=== PATIENT | female | born 1955 | race African-American/Black ===

== ENCOUNTER 2017-08-03 21:23 | Inpatient (IN) | payer SELFPAY ==
[2017-08-03 22:02] LABS: #Basophils 0.1 thou/uL (0.0-0.2); #Eosinphils 0.2 thou/uL (0.0-0.7); #Lymphocytes 2.5 thou/uL (1.20-3.40); #Monocytes 0.5 thou/uL (0.11-0.59); #Neutrophils 6.3 thou/uL (1.40-6.50); %Basophils 0.5 % (0.0-1.0); %Eosinophils 1.7 % (0.0-10.0); %Lymphocytes 26.1 % (21.0-51.0); %Monocytes 5.6 % (0.0-10.0); Hematocrit 36.9 % (36.0-47.0); Mean Platelet Volume 8.1 fL (7.4-10.4); White Blood Cell (WBC) Count 9.6 thou/uL (4.8-10.8)
[2017-08-03 22:14] LABS: ALT (SGPT) Less than 7 U/L (8-55); AST (SGOT) 11 U/L (5-34); Alkaline Phosphatase 79 U/L (40-150); Anion Gap 14 mmol/L (10-20); BUN (Urea Nitrogen) 8 mg/dL (9.8-20.1); Bilirubin, Total 0.3 mg/dL (0.2-1.2); Calc. Creatinine Clearance 0 mL/min (70-130); Calcium 8.9 mg/dL (7.8-10.44); Carbon Dioxide 27 mmol/L (23-31); Chloride 101 mmol/L (98-107); Estimated GFR-MDRD Greater than 90; Globulin 4.4 g/dL (2.4-3.5)
[2017-08-03] MEDS ORDERED: cloNIDine 0.1 MG TAB ONE (22:51)
--- NOTE | 2017-08-03 23:13 | RAD ---
PORTABLE CHEST: 08/03/17 HISTORY: Hypoxemia. COMPARISON: 04/26/17. Cardiomegaly. There is vascular congestion. Interstitial prominence suggests mild interstitial edema. No confluent alveolar edema or infiltrate. No significant effusion. IMPRESSION: Cardiomegaly and mild vascular congestion. POS: [facility]
[2017-08-03] MEDS ORDERED: Lorazepam 2 MG/ML VIAL ONE (23:21)
--- NOTE | 2017-08-03 23:28 | CT ---
CT HEAD WITHOUT CONTRAST: 08/03/17 Multiple axial tomograms obtained through the head without IV enhancement. HISTORY: Seizure. Comparison made to prior MRI of 01/21/[address] of 11/15/16 The previous MRI has demonstrated an enhancing extra-axial mass in the anterior right middle cranial fossa, partially calcified consistent with meningioma. This is producing vasogenic edema in the righ t temporal lobe. This is again seen on today's CT scan without evidence of significant change. There is encephalomalacia in the left cerebral hemisphere consistent with old left MCA territory infa rct which has been previously described. There is vasogenic edema in the right middle cranial fossa does produce some mass effect and slight m idline shift; however, the degree of midline shift at the septum pellucidum does not appear significa ntly changed from the prior exam and continues to measure in the 3 mm range. No acute hemorrhage or s ignificant interval change noted. IMPRESSION: 1. Partially calcified meningioma in the anterior right middle cranial fossa has been previously described on MRI. This produces vasogenic edema in the right temporal lobe which does not appear sig nificantly changed from the MRI of 12/22/16. There is slight mass effect and midline shift associated with this edema. 2. Encephalomalacia in the left cerebral hemisphere appears stable. POS: [facility]
[2017-08-03] MEDS ORDERED: Furosemide 40 MG/4 ML VIAL ONE (23:35)
[2017-08-04] MEDS ORDERED: Propofol 1,000 MG/100 ML VIAL IV ONE (00:08)
[2017-08-04] MEDS ORDERED: niCARdipine 20MG In NaCl 20 MG/200 ML BAG ONE ×2 (00:12→03:13)
[2017-08-04 00:35] LABS: Mechanical Tidal Volume 500 ml; Mode CMV; Modified Allen's Test POSITIVE; Sodium 137 mmol/L (135-148); Vent YES
[2017-08-04 00:58] LABS: Bilirubin Negative (Negative); Blood, Urine Small (Negative); Glucose, Urine (Dipstick) Negative (Negative); Ketone, Urine Negative (Negative); Nitrite Negative (Negative); Protein, Urine (Dipstick) Negative (Neg-Trace); Urobilinogen 0.2 mg/dL (0.2-1.0)
[2017-08-04 01:01] LABS: Bacteria/HPF None Seen HPF (None Seen); Hyaline Casts/LPF 0-3 HYALINE CAST LPF (0-3 Hyaline); Squamous Epithelial 0-3 HPF (0-3); WBC/HPF 0-3 HPF (0-3)
[2017-08-04] MEDS ORDERED: Lorazepam 2 MG/ML VIAL ONE (01:27)
[2017-08-04 01:37] LABS: Troponin I 0.018 ng/mL (< 0.028)
[2017-08-04 01:40] LABS: Troponin I 0.018 ng/mL (< 0.028)
[2017-08-04] MEDS ORDERED: Vecuronium 10 MG VIAL ONE (01:43)
[2017-08-04] MEDS ORDERED: Sterile Water 10 ML ONE (01:44)
[2017-08-04] MEDS ORDERED: CCU Electrolyte Replacement 1 EACH FS SCH (02:10)
[2017-08-04] MEDS ORDERED: Lorazepam 2 MG/ML VIAL SLOW IVP PRN ×2 (02:10→02:27)
[2017-08-04] MEDS ORDERED: Ondansetron HCl/PF 4 MG/2 ML Vial IVP PRN (02:10)
[2017-08-04] MEDS ORDERED: Acetaminophen 650 MG Suppository PR PRN (02:10)
[2017-08-04] MEDS ORDERED: Sedation Protocol FS SCH (02:10)
[2017-08-04] MEDS ORDERED: Fentanyl 20 MCG/ML 250 ML IVPB SCH (02:27)
[2017-08-04] MEDS ORDERED: DISCONTINUE PREVIOUS NARCOTIC PAIN MEDICATIONS AND BENZODIAZEPINES FS SCH (02:27)
[2017-08-04] MEDS ORDERED: Propofol 1,000 MG/100 ML VIAL IV PRN (02:27)
[2017-08-04] MEDS ORDERED: Morphine 4 MG/ML VIAL SLOW IVP PRN (02:29)
[2017-08-04] MEDS ORDERED: Furosemide 40 MG/4 ML VIAL SLOW IVP SCH (02:30)
[2017-08-04] MEDS ORDERED: Potassium Chloride 20 MEQ TAB PO PRN (02:34)
[2017-08-04] MEDS ORDERED: Potassium Chloride 40 MEQ in Sodium Chloride 0.9% 250 ML 250 ML IVPB PRN (02:34)
[2017-08-04] MEDS ORDERED: Potassium Phosphate 12 MMOL in Sodium Chloride 0.9% 250 ML 250 ML IV PRN (02:34)
[2017-08-04] MEDS ORDERED: CCU ELECTROLYTE REPLACEMENT PROTOCOL FS PRN (02:34)
[2017-08-04] MEDS ORDERED: Magnesium 2 GM/NS 0.9% 100 ML 2 GM in Premix Bag 1 BAG IVPB PRN (02:34)
[2017-08-04] MEDS ORDERED: Potassium Phosphate 15 MMOL in Sodium Chloride 0.9% 250 ML 250 ML IV PRN (02:34)
[2017-08-04] MEDS ORDERED: Magnesium Oxide 400 MG TAB PO PRN ×2 (02:34)
[2017-08-04] MEDS ORDERED: Potassium Phosphate 9 MMOL in Sodium Chloride 0.9% 100 ML IVPB PRN (02:34)
[2017-08-04 02:35] LABS: Amphetamine Not Detected (NotDetected); Methadone Not Detected (NotDetected); Methamphetamine Not Detected (NotDetected)
[2017-08-04] MEDS ORDERED: Fentanyl 20 MCG/ML 250 ML ONE (02:44)
[2017-08-04] MEDS ORDERED: LEVETIRACETAM IVPB SCH (03:00)
[2017-08-04] MEDS ORDERED: ADMIXTURE FEE IVPB SCH (03:00)
[2017-08-04] MEDS ORDERED: NACL IVPB SCH (03:00)
--- NOTE | 2017-08-04 03:46 | HP ---
REASON FOR ADMISSION: Seizure x2, intubated for airway. HISTORY OF PRESENTING ILLNESS: Please note the majority of this history is obtained by my talking to patient's daughter and Dr. Cortez in the ER. Patient is currently intubated. She apparently wanted to eat a burger around 8:45 p.m. Daughter went to get it and by the time she came back, patient was seizing. She was staring with her face twitching. She soon called EMS and by the time EMS came, patient was slowly inching back to her normal state. She in fact walked to the stretcher. Here in the ER, patient had another episode of seizure , which is essentially described as staring with twitching of face. Per ER physician Dr. Cortez, she also was moving her right upper extremity. She got a dose of Ativan, which stopped the seizure. Patient started to froth and started coughing and had to be intubated. No complaints of fever, shortness of breath, chest pain, urinary symptoms per patient's daughter yesterday. She finished a 10-day course of antibiotics which was given to her for her COPD exacerbation on the . She also finished steroids along with that. PAST MEDICAL AND SURGICAL HISTORY: History of cerebrovascular accident with right-sided hemiparesis, seizure disorder, chronic meningioma, hypertension, dyslipidemia, COPD, appendectomy, bilateral tubal ligation, anxiety, depression. CURRENT MEDICATIONS: Aggrenox 1 capsule twice daily, Nexium 40 mg daily, Keppra 1000 mg twice daily, pravastatin 40 mg p.o. daily, lisinopril 40 mg daily. ALLERGIES: HALDOL. PERSONAL HISTORY: Patient continues to smoke half pack a day, does not abuse alcohol or drugs. She apparently is ambulating and does all her activities of daily living per patient's daughter. FAMILY HISTORY: Mom got shot in her 60s. Father is as well, but the daughter here at bedside does not know much about him. REVIEW OF SYSTEM: Cannot be obtained as patient is currently intubated and is sedated. PHYSICAL EXAMINATION: GENERAL: Patient is a 61-year-old female who is currently intubated and is on the ventilator. VITAL SIGNS: Blood pressure on arrival was 200/140, pulse 80 per minute, respiratory rate 20 per minute, temperature 100.4 degrees Fahrenheit, saturating 95% on ventilator, 100% FIO2. NECK: Supple, no elevated JVD. HEENT: Eyes: Pupils are 3 mm and sluggishly reacting to light. Oral cavity mucous membranes are moist. No exudates or congestion. CARDIOVASCULAR: S1, S2 heard. Regular rhythm. RESPIRATORY SYSTEM: Air entry 1+ bilateral. Scattered rhonchi plus bilateral. No wheezes. ABDOMEN: Soft, bowel sounds heard. No tenderness, rigidity, or guarding. EXTREMITIES: No peripheral edema or calf tenderness. VASCULAR SYSTEM: Peripheral pulses 1+ bilateral. No ischemic ulcerations or gangrene. CENTRAL NERVOUS SYSTEM: Patient does appear to have left hemiparesis with some wasting of muscles, but she is freely moving her right upper and lower extremities here in the ER. No other gross focal deficits seen. PSYCHIATRIC: Cannot be assessed as the patient is intubated and sedated. LABORATORY AND X-RAY FINDINGS: CT brain done showed no acute infarct or bleed. Patient has chronic encephalomalacia in the entire left cerebral hemisphere. She also has a partially calcified meningioma in the anterior right middle cranial fossa. Based on prior MRI done in 12/2016, there is not much change. UA shows no evidence of infection. TSH is 11, albumin is 3.6. Liver enzymes within normal limits. Two sets of troponin are negative. Potassium is 3.1, BUN 8, creatinine 0.7, serum bicarbonate 27, glucose is 111. Blood gas done shows a pH of 7.38, pCO2 50, pO2 of 349, bicarbonate is 29 on the blood gas. White count of 9, H&H 11 and 36, platelet count 358 with 66% neutrophils, MCV is 83. CLINICAL IMPRESSION AND PLAN: Patient will be admitted to ICU. She will be on Keppra 750 mg IV q.12 hourly. She will also be on Ativan p.r.n. for seizures. We will give one dose of Lasix. She was started on Cardene drip in ER, will dc with her systolic blood pressures at present around 110. This will be discontinued shortly. We will continue her propofol for sedation. Her potassium will be replaced. We will continue her Aggrenox, citalopram and Pravachol as before. She will be given a dose of Lasix one dose now. DuoNeb q.6 hourly and short course of steroids. We will consult Dr. Arora who is solar sales consultant for Pulmonology and Dr. Bailon for Neurology. CODE STATUS: FULL and I have discussed this with her daughter Ms. Cardona, she is also the power of attorney general for patient. Patient most likely will require a central line if her peripheral IVs go bad. I have discussed this with Dr. Coley who is in the ER. [facility]
[2017-08-04 04:21] LABS: Anion Gap 14 mmol/L (10-20); BUN (Urea Nitrogen) 8 mg/dL (9.8-20.1); Calc. Creatinine Clearance 0 mL/min (70-130); Calcium 8.8 mg/dL (7.8-10.44); Carbon Dioxide 26 mmol/L (23-31); Chloride 99 mmol/L (98-107); Estimated GFR-MDRD 88
[2017-08-04 04:29] LABS: Troponin I 0.028 ng/mL (< 0.028)
--- NOTE | 2017-08-04 04:52 | PDOC.EVN ---
Event Note - Event Note Event Note: repeat cxr done for confirmation of central line showed left lung haziness with likely aspiration. Will start on clindamycin, she is already on steroids.
[2017-08-04 05:14] LABS: Band 1 % (5-11); Hematocrit 38.5 % (36.0-47.0); Neutrophil 81 % (42-75); Reactive Lymphocytes 1 % (0-10); Red Blood Cell (RBC) Count 4.65 mill/uL (4.20-5.40); White Blood Cell (WBC) Count 11.6 thou/uL (4.8-10.8)
[2017-08-04] MEDS: Clindamycin/D5W 600 MG in Premix Bag 1 BAG IVPB SCH ×3 (06:06→21:51)
[2017-08-04] MEDS: Potassium Chloride 40 MEQ in Premix Bag 1 BAG IVPB PRN (06:07)
[2017-08-04] MEDS: Mometasone/Formoterol 120 PUFF INHALER INH SCH ×2 (06:34→18:15)
[2017-08-04] MEDS ORDERED: Sodium Chloride 0.9% 1,000 ML IV SCH (07:30)
[2017-08-04 07:31] LABS: Oxyhemoglobin 90.4 % (94.0-97.0); Sodium 138 mmol/L (135-148)
[2017-08-04 07:49] LABS: Mechanical Tidal Volume 500 ml; Mode SIMV/PSV; Modified Allen's Test NOT DONE; Pressure Support 10 cmH2O; Vent YES
--- NOTE | 2017-08-04 08:17 | RAD ---
PORTABLE AP CHEST: Date: 08/04/17 HISTORY: Post intubation. COMPARISON: 08/03/17. FINDINGS: There has been interval placement of an endotracheal tube with tip overlying the T3 vertebral body an d above the level of the vna. Nasogastric tube has also been placed in the interim, which courses into the left upper quadrant with tip overlying the expected location of the gastric fundus. Pleural and parenchymal changes are seen at the left lung base, which may be related to atelectasis and small left pleural effusion, although pneumonia at the left lung base is a possibility. The right lung is clear. Cardiac silhouette and pulmonary vasculature are within normal limits. Thoracic aorta is ectat ic and partially calcified. No other interval change. IMPRESSION: 1. Interval placement of endotracheal tube and nasogastric tube as described above. 2. Pleural and parenchymal changes left lung base. Findings may be related to pneumonia, left pleura l effusion, and/or atelectasis. POS: [facility]
[2017-08-04] MEDS ORDERED: Aggrenox 200-25mg CAP PO SCH (09:00)
[2017-08-04] MEDS: Citalopram 20 MG TAB PO SCH (09:25)
[2017-08-04] MEDS: Famotidine/PF 20 mg/2ml Vial SLOW IVP SCH ×2 (09:25→21:52)
[2017-08-04] MEDS: Enoxaparin Sodium 40 MG/0.4 ML SYRINGE SC SCH (09:26)
--- NOTE | 2017-08-04 09:26 | RAD ---
PORTABLE AP CHEST: Date: 08/04/17 HISTORY: Post central line placement. FINDINGS: Endotracheal tube and nasogastric tubes remain in place. There has been interval placement of a left subclavian central venous catheter with the tip overlying suspected location of the SVC. There has be en interval increase in pleural based density left hemithorax with the opacity occupying at least 1/2 to 2/3 of the volume of the left hemithorax. This could be related to interval increase in pleural f luid. The exact etiology is uncertain. No pneumothorax is visualized. There is only a small amount of aerated lung present on the left. The right lung is clear. IMPRESSION: Interval placement of a left subclavian central venous catheter, and there is now increased opacity i n the left hemithorax which was not seen on the study of 08/04/17 at 0016 hours, just 2 hours prior t o this exam. Findings are worrisome for moderately large left pleural fluid. No pneumothorax is seen. Above findings discussed with Dr. Olivera on 08/04/17 at 0824 hours. CODE CR. POS: [facility]
--- NOTE | 2017-08-04 11:24 | PRG ---
DATE OF SERVICE: 08/04/2017 REFERRING PHYSICIAN: Hospitalist Service. SUBJECTIVE: Ms. Mitchell was admitted after being witnessed having a generalized seizure. She has a k nown history of seizures, and has been on Keppra. She has a past history of left MCA infarct with re sidual deficits on the right. She reports that she has been compliant with her medication. She is i ntubated as a result of seizures, given some Ativan in the emergency room, and things were brought un jessi control. She is quite hypertensive on arrival with a blood pressure of 190/147. Her vital signs are stabilized and has blood pressure 117/79, she had a normal sinus rhythm. IMAGING: CAT scan showed stable findings compared to prior studies. She has not had any further sei zure activity. PLAN: I would continue her Keppra at 1000 mg twice a day. I am happy to follow up with her as an ou tpatient.
--- NOTE | 2017-08-04 11:40 | CON ---
DATE OF CONSULTATION: 08/04/2017 HISTORY OF PRESENT ILLNESS: Ms. Mitchell was admitted with a seizure and pulmonary distress, was intub ated in the emergency department and placed in the Intensive Care Unit. Dr. Arora has asked me to se e her in regard to her left lung findings on CT/chest x-ray. She is currently intubated and sedated. I have reviewed her CT and chest x-ray with Dr. Arora. The left lung lower lobe shows some consolidation in the periphery. There is no can fluid or loculated fluid present currently. Her chest x-ray certainly looks worse than her CT scan does from early thi s morning. She has had no fever since admission. Her white blood cell count is currently 11.6. PAST MEDICAL HISTORY: 1. History of previous cerebrovascular accident with right hemiparesis. 2. Seizure disorder. 3. Calcified meningioma. 4. Hypertension. 5. Dyslipidemia. 6. Chronic obstructive pulmonary disease. 7. Anxiety. 8. Depression. PAST SURGICAL HISTORY: 1. Appendectomy. 2. BTL. CURRENT MEDICATIONS: Noted. ALLERGIES: HALDOL. SOCIAL HISTORY: She smokes a half pack of cigarettes a day. REVIEW OF SYSTEMS: Not able to be performed due to the patient being intubated and sedated. PHYSICAL EXAMINATION: GENERAL: This is a well-developed, elderly appearing -[place] woman, resting comfortably on the ventilator. VITAL SIGNS: Temperature is 99.4, pulse is 85 and regular, blood pressure is 117/79. LUNGS: Clear bilaterally, some diminished breath sounds over the left side. HEART: Rhythm is regular. ABDOMEN: Soft. EXTREMITIES: There is minimal edema. LABORATORY DATA: Of note, white blood cell count is 11.6, hemoglobin is 11.7, platelet count 342,000 . Creatinine is 0.80. Potassium is 3.4. ASSESSMENT AND PLAN: Left lower lobe consolidation. I will continue to follow her with you. If she does begin to accumulate fluid surrounding this, we can certainly place chest tube or take her for t horacoscopy and decortication as needed.
--- NOTE | 2017-08-04 11:56 | PRG ---
DATE OF SERVICE: 08/04/2017 SUBJECTIVE: I just received a call from Radiology physician, who reported to me significant change o n the chest x-ray on Ms. Gia Mitchell, a patient from [facility]. Radiologist noticed significant change a nd worsening of the left lung opacification, which increased a lot from the previous x-ray, which was just done this morning. OBJECTIVE: GENERAL: Patient is intubated. She is not sedated at this point. Only, she is on fentanyl p.r.n. a s needed. VITAL SIGNS: Blood pressure is 107/79, pulse is 86, respiratory rate is 16 and O2 saturation is 99% on FiO2 of 50%. HEENT: Pupils are in midline, they respond to light properly. Sclerae is nonicteric. Conjunctivae pinkish. LUNGS: Breath sounds diminished at the left base with few crackles, no wheezing though. HEART: S1 and S2 normal. No S3, no S4, somewhat distant. ABDOMEN: Soft, nondistended and nontender. EXTREMITIES: No peripheral edema. NEUROLOGIC: She is able to respond to my questions. She is able to squeeze my fingers. She might h ave some deficits, which is very difficult at this time to notice, nothing obvious, but she follows m y commands and she responds that she is not in any pain. LABORATORY DATA: White count of 11.6, hemoglobin is 11.7, hematocrit is 38.5, platelet count is 342, 81% of neutrophils. Her ABGs showed pH of 7.46, pCO2 is 41.9, pO2 of 57.4 and base excess is 4.9. Sodium is 138, potassium 3.6, chloride 95 and ionized calcium is 1.1. Her morning chemistry showed s odium of 136, potassium 3.4, chloride 99, CO2 of 26, anion gap of 14, BUN 8 and creatinine 0.8. Trop onin 0.028. Urinalysis showed small amount of blood, 11-20 rbc's. The rest of the urinalysis within normal limits. Urine toxicology screen is negative. She had a chest x-ray, which was done at 7:00, which showed significant opacification of the left lung. IMPRESSION: 1. Recurrent seizures based on CT. She has a partially calcified meningioma in the anterior right m iddle cranial fossa with some evidence of vasogenic edema in the right temporal lobe. It is not danny r whether this mass is the source of seizures at this point, the patient was seen by neurologist, Dr. Bailon. We are awaiting for final report from him. He switched the patient from Aggrenox to aspir in and he is going to continue her Keppra. She was placed at the time of admission 1000 mg twice a d ay. 2. Respiratory changes, most likely it is aspiration pneumonia. The patient was placed on clindamyc in for that purpose. The case was discussed with Dr. Arora, wearing apparel assembler, who is rounding today. H e is recommending to get cardiothoracic surgeon, Dr. Barth involved to consider putting a chest tube. She will remain on the ventilator and we are going to make some adjustments in the settings to impr ove her hypoxemia. 3. Seizure disorder. 4. History of cerebrovascular accident with left-sided hemiparesis. 5. Hypertension. 6. Dyslipidemia. 7. Chronic obstructive pulmonary disease. 8. Hypertensive urgency with the systolic blood pressure more than 200 at the time of admission. e patient was placed on Cardene drip and by this time, her Cardene drip is being discontinued because her blood pressure is under much better control, so at this point we are going to see Dr. Barth. Re commend and will keep the patient on a ventilator. She will receive supportive care in the intensive care.
--- NOTE | 2017-08-04 13:39 | CT ---
PRELIMINARY REPORT/[facility]/EMERGENCY AFTER HOURS PROCEDURE: EXAM: CT Angiography Chest With Intravenous Contrast EXAM DATE/TIME: Exam ordered 08/04/2017 3:03 AM CLINICAL HISTORY: 61 years old, female; Signs and symptoms; Dyspnea; Patient HX: Pt lives with daughter who reports pat jeremy had a seizure one hour before arriving to ed. Daughter reports fixed gaze, expressive aphasia. B reath sounds diminished, to bilateral upper lobes, to bilateral lower lobes TECHNIQUE: Axial computed tomographic angiography images of the chest with intravenous contrast using pulmonary embolism protocol. COMPARISON: No relevant prior studies available. FINDINGS: Pulmonary arteries: There is no evidence of peripheral filling defects within the pulmonary arterial circulation to suggest pulmonary embolism. Aorta: No acute findings. No thoracic aortic aneurysm. Lungs: There is mild RIGHT and moderate LEFT atelectasis/lung consolidation. There are emphysematous changes in the lung apices. Pleural space: Normal. No significant effusion. No pneumothorax. Heart: Normal. No cardiomegaly. No significant pericardial effusion. No evidence of RV dysfunction. Bones/joints: No acute fracture. No dislocation. Soft tissues: Normal. Lymph nodes: Normal. No enlarged lymph nodes. Upper abdomen: The visualized intra-abdominal structures are normal. Tubes, lines and devices: An endotracheal tube is present, lying with its tip 2 cm above the van. A nasogastric tube lies with its tip in the stomach. There is a left subclavian central venous cathet er with tip in satisfactory position. IMPRESSION: 1. There is no CT evidence of acute pulmonary embolism. 2. There is mild RIGHT and moderate LEFT atelectasis/lung consolidation. Aspiration is a consideratio n. Thank you for allowing us to participate in the care of your patient. Dictated and Authenticated by: Devon Chandra MD 08/04/2017 3:36 AM Central Time ([place] & [place]) FINAL REPORT EMERGENCY AFTER HOURS CT ANGIOGRAM THORAX WITH IV CONTRAST AND 3D RECONSTRUCTIONS: Date: 08/04/17 HISTORY: Seizure 1 hour prior to arrival. Expressive aphasia. Diminished breath sounds to bilateral upper lobe s, as well as bilateral lower lobes. COMPARISON: 06/15/16. IMPRESSION: 1. No CT evidence of a pulmonary embolus. 2. Thoracic aorta is normal in caliber without evidence of an aortic dissection. Mild vascular calci fications are seen in the thoracic aorta, as well as involving the coronary arteries. 3. Mild cardiomegaly. 4. Consolidation present at each lung base, much greater on the left. Findings are most likely attri butable to atelectasis as there is generalized volume loss involving the left hemithorax. Emphysemato us changes are seen bilaterally. 5. Endotracheal tube noted in place, which is above the level of the van. Nasogastric tube is not ed in place with tip in the gastric fundus. 6. Low density structure in an epicardial location, also present on the prior study in 2016. Attenua tion coefficient is difficult to evaluate due to motion artifact in this region. However, on the prio r study, attenuation coefficient was more consistent with fluid, and this could represent a tiny jony cardial cyst as opposed to an enlarged lymph node. However, there is an additional smaller lymph node present in the epicardial location. Nevertheless, this is a stable finding. 7. There is a left subclavian central venous catheter noted in place with the tip in the region of t he distal SVC. Findings are in agreement with the preliminary report by [facility]. Again, there is consolidation involvin g large portion of left lung most likely attributable to volume loss given decrease in volume of the left hemithorax. Aspiration pneumonitis is a possibility as well. POS: [facility]
[2017-08-04] MEDS ORDERED: ISOVUE-370 76%-LOCM 1 ML ONE (16:44)
--- NOTE | 2017-08-04 17:23 | CON ---
DATE OF CONSULTATION: 08/04/2017 Ms. Mitchell is a 61-year-old female. She presented with reportedly a seizure. She is intubated with this and subsequently was admitted to the ICU. There is some history provided by the nurse that maybe she had shortness of breath leading up to this seizure. Her chest radiograph was abnormal. I was consulted because she still presented in the ICU mechanical ventilation. PAST MEDICAL HISTORY: Remarkable for, 1. Right hemiparesis after a CVA. 2. History of seizures. 3. History of meningioma. 4. History of hypertension. 5. History of COPD. 6. Anxiety and depression. 7. History of tubal ligation, appendectomy. 8. History of lipid disorder. MEDICATIONS: Prior to admission she was on Aggrenox, , Keppra, pravastatin , lisinopril. ALLERGIES: She reports intolerance to HALDOL. SOCIAL HISTORY: She is still smoking even though she is hemiplegic. She does not drink. FAMILY HISTORY: Mother apparently from gunshot wound in her 60s. Father has . Daughter provided most of the history on admission. She was not here when I performed my consult this morning. PHYSICAL EXAMINATION: VITAL SIGNS: She is afebrile, heart rate 70, respiratory rate is 15, oximetry is 100%, blood pressure 115/76. HEENT: Pupils react. Sclerae is anicteric. NECK: Supple. LUNGS: Remarkable for decreased breath sounds at her left base. HEART: Regular rhythm. ABDOMEN: Soft. EXTREMITIES: Without asymmetry. LABORATORY AND X-RAY FINDINGS: Chest radiograph suggests bilateral pleural fluid. Chest CT shows this is probably more consolidation than pleural effusion. I had CT surgery look at to see if he felt there was anything that would justify chest tube placement, but he does not. IMPRESSION: 1. Seizures. 2. ? pneumonia or chemical pneumonitis associated with her seizures. It is unclear how long she was seizing, but the history provided is that the daughter left to go get something to eat and came back and her mother was seizing. I do not think she should be extubated. We will continue mechanical ventilation, serial radiographs, ICU care as well as empiric antimicrobial therapy and intravenous medications for her seizure (Keppra.) Since we really do not know if this is acute event related to her seizure or she was developing a pneumonia , she probably needs more coverage than just [place] provides. Critical care time 30 min. MTDD
[2017-08-04] MEDS: Piperacillin/Tazobactam 3.375 GM in Sodium Chloride 0.9% 100 ML IVPB SCH (17:43)
[2017-08-04] MEDS: Atorvastatin Calcium 10 MG TAB PO SCH (21:51)
[2017-08-04] MEDS: levETIRAcetam 500 mg/5 ml Oral Solution PER TUBE SCH (21:52)
[2017-08-05] MEDS: Piperacillin/Tazobactam 3.375 GM in Sodium Chloride 0.9% 100 ML IVPB SCH ×5 (00:08→23:56)
[2017-08-05 04:22] LABS: #Lymphocytes 0.8 thou/uL (1.20-3.40); #Monocytes 0.4 thou/uL (0.11-0.59); #Neutrophils 9.8 thou/uL (1.40-6.50); %Eosinophils 0.1 % (0.0-10.0); %Lymphocytes 6.9 % (21.0-51.0); %Monocytes 3.9 % (0.0-10.0); Hematocrit 31.5 % (36.0-47.0); Red Blood Cell (RBC) Count 3.84 mill/uL (4.20-5.40)
[2017-08-05 04:41] LABS: Anion Gap 10 mmol/L (10-20); BUN (Urea Nitrogen) 20 mg/dL (9.8-20.1); Calc. Creatinine Clearance 74 mL/min (70-130); Calcium 9.1 mg/dL (7.8-10.44); Carbon Dioxide 29 mmol/L (23-31); Chloride 99 mmol/L (98-107); Estimated GFR-MDRD 55
[2017-08-05] MEDS: Clindamycin/D5W 600 MG in Premix Bag 1 BAG IVPB SCH ×3 (05:32→20:05)
[2017-08-05] MEDS: Potassium Chloride 40 MEQ in Premix Bag 1 BAG IVPB PRN (05:37)
[2017-08-05 07:54] LABS: Oxyhemoglobin 92.3 % (94.0-97.0); Sodium 138 mmol/L (135-148)
[2017-08-05 07:55] LABS: Mechanical Tidal Volume 500 ml; Mode SIMV/PSV; Modified Allen's Test NOT DONE; Pressure Support 10 cmH2O; Vent YES
[2017-08-05] MEDS ORDERED: Sodium Chloride 0.45% 500 ML IV SCH (08:15)
--- NOTE | 2017-08-05 08:31 | PRG ---
DATE OF SERVICE: 08/05/2017 SUBJECTIVE: The patient is seen and examined at the bedside. She is awake and responsive to me. Sh yariel is not sedated. She is on a ventilator. There were not any unexpected events overnight. OBJECTIVE: VITAL SIGNS: Blood pressure is 161/84, pulse is 79, pulse oximetry is 100%. She is on FiO2 50%, res piratory rate is 20. HEENT: Head is atraumatic, normocephalic. Pupils are responding to light properly. Sclerae is reinaldo cteric. She is orally intubated. She has an NG tube placed orally. LUNGS: She has some rales at the left base and the mid lung. No wheezing. HEART: S1, S2 normal, no S3, no S4, somewhat distant. ABDOMEN: Soft, nontender, nondistended. Bowel sounds are present. EXTREMITIES: No clubbing, cyanosis or edema. She has good pulses on both tibialis posterior and ace salis pedis arteries, similar bilaterally. NEUROLOGIC: She is following my commands. She is awake, she is able to move her all 4 extremities. LABORATORY DATA AND IMAGING: Showed a white count of 11.0, hemoglobin 9.8, hematocrit 31.5, RDW 14.3 , MCV 8.0, platelet count 391, neutrophils 9.8. I am waiting for ABGs to be done this morning, it is still pending. Sodium of 135, potassium 3.43, chloride 99, BUN 20, creatinine 1.20, glucose 138, ca lcium 9.1. Microbiology shows sputum aspirate. Gram stain showed many WBCs and few gram positive c occi in pairs and clusters. IMPRESSION: 1. Recurrent seizures. It is unclear whether this is because of her meningioma or it is just a recu rrence of her previous seizures episode. Neurology saw her, she is okay to use Keppra 1000 mg twice a day and she was switched to aspirin from Aggrenox. We will continue that. 2. Respiratory failure, status post intubation, questionable pneumonia versus pneumonitis, may be as piration related. The Gram stain is showing many WBCs and gram positive cocci. The patient was star juaquin on Zosyn on the top of her clindamycin she was on by tap grinder. She was seen by Dr. Barth fo r evaluation whether she needs a chest tube since her CT of the chest showed quite significant consol idation in the left lung, which is mainly peripheral, but he chose to observe her and make decision b ased on the further finding on daily evaluations. For now, she is intubated and she does not require any sedation at this point. 3. Hypertensive urgency. Blood pressure is better, but it is still in the range of 160, so we will review her home medications and make appropriate changes to get the blood pressure to slightly better control. 4. Low renal output, only 825 mL. We will start her on IV fluids since her creatinine went up to 1. 2 from 0.8. We will start her on half normal saline at 125 mL per hour. We will give her a bolus of half normal saline 250 mL x1. 5. Elevated TSH. We will repeat the TSH and Free T4 to see whether this is a real finding. 6. Hypokalemia. We will add potassium to her IV fluids. 7. Seizure disorder. 8. History of cerebrovascular accident with right-sided paresis. 9. Dyslipidemia. 10. Chronic obstructive pulmonary disease per history. PLAN: Continue her Zosyn and clindamycin. Continue ventilator. Continue a critical care observatio n. Chest x-ray daily. Start her on half normal saline bolus of 250, then 125 mL per hour.
[2017-08-05] MEDS: Mometasone/Formoterol 120 PUFF INHALER INH SCH ×2 (08:37→19:06)
[2017-08-05] MEDS: Citalopram 20 MG TAB PO SCH (09:00)
[2017-08-05] MEDS: Famotidine/PF 20 mg/2ml Vial SLOW IVP SCH ×2 (09:00→20:05)
[2017-08-05] MEDS: Enoxaparin Sodium 40 MG/0.4 ML SYRINGE SC SCH (09:01)
--- NOTE | 2017-08-05 09:26 | PRG ---
DATE OF SERVICE: 08/05/2017 Thirty-five minutes critical care time. SUBJECTIVE: The patient remains intubated on mechanical ventilation. She will wake up and follow co mmands for me. PHYSICAL EXAMINATION: VITAL SIGNS: Temperature is 99.2, pulse 54, blood pressure 138/77, O2 sat 98%, and 24-hour intake 64 2, output 825. HEENT: Pupils are reactive. Sclerae anicteric. Oropharynx; endotracheal tube in place. NECK: No JVD. LUNGS: Fairly clear anteriorly bilaterally. CARDIOVASCULAR: S1 and S2 is regular. ABDOMEN: Soft, obese, nontender, nondistended. EXTREMITIES: No clubbing, cyanosis, or edema. LABORATORY DATA: ABG: pH 7.40, PCO2 of 44, PO2 of 68. White blood cell count 11, hematocrit 31.5, platelet count 391. Sodium 135, potassium 3.3, chloride 99, CO2 of 29, BUN 20, creatinine 1.2, gluco se 138. Chest x-ray result is pending. ASSESSMENT: 1. Seizures at the time of admission. 2. Pneumonia on the left side. 3. Acute respiratory failure, requiring mechanical ventilation. PLAN: 1. Continue IV antibiotics. 2. Spontaneous breathing trial. 3. Replace potassium. 4. Agree with IV fluids. 5. Lisinopril has been restarted.
[2017-08-05] MEDS: levETIRAcetam 500 mg/5 ml Oral Solution PER TUBE SCH ×2 (09:30→20:05)
--- NOTE | 2017-08-05 10:17 | RAD ---
UPRIGHT PORTABLE CHEST ONE VIEW: History: 61-year-old female with follow up left lung consolidation. FINDINGS: NG tube and endotracheal tubes are in place. Previously noted lateral peripheral left sided abnormal opacity is markedly improved with some minimal residual bilateral pleural thickening and some pleural and parenchymal opacity changes in the left base. Atherosclerosis of the aorta with ectasia. Life lobo pport tubes remain in place and stable. IMPRESSION: Considerable improvement in the abnormal opacity changes in the left chest with some minimal residual pleural and parenchymal opacity changes in the left base and bilateral lateral pleural thickening. N o new process. POS: [facility]
[2017-08-05] MEDS: Lisinopril 20 MG TAB PO SCH (10:42)
[2017-08-05] MEDS: 1/2 NS w/KCL 20 mEq 1,000 ML IV SCH ×3 (10:51→20:17)
[2017-08-05 11:38] VITALS: BMI 34.2
[2017-08-05] MEDS ORDERED: Amlodipine 5 MG TAB PO SCH (17:30)
[2017-08-05] MEDS: Atorvastatin Calcium 10 MG TAB PO SCH (20:05)
[2017-08-06] MEDS: Clindamycin/D5W 600 MG in Premix Bag 1 BAG IVPB SCH (04:28)
[2017-08-06 04:42] LABS: #Lymphocytes 1.4 thou/uL (1.20-3.40); #Monocytes 0.8 thou/uL (0.11-0.59); #Neutrophils 12.7 thou/uL (1.40-6.50); %Lymphocytes 9.6 % (21.0-51.0); %Monocytes 5.1 % (0.0-10.0); Hematocrit 31.4 % (36.0-47.0); Mean Platelet Volume 7.8 fL (7.4-10.4); Red Blood Cell (RBC) Count 3.77 mill/uL (4.20-5.40); White Blood Cell (WBC) Count 14.9 thou/uL (4.8-10.8)
[2017-08-06 05:05] LABS: Anion Gap 8 mmol/L (10-20); BUN (Urea Nitrogen) 17 mg/dL (9.8-20.1); Calc. Creatinine Clearance 102 mL/min (70-130); Calcium 8.4 mg/dL (7.8-10.44); Carbon Dioxide 28 mmol/L (23-31); Chloride 104 mmol/L (98-107); Estimated GFR-MDRD 79
[2017-08-06] MEDS: 1/2 NS w/KCL 20 mEq 1,000 ML IV SCH ×3 (05:14→17:25)
[2017-08-06] MEDS: Piperacillin/Tazobactam 3.375 GM in Sodium Chloride 0.9% 100 ML IVPB SCH ×3 (05:14→17:25)
[2017-08-06] MEDS: Mometasone/Formoterol 120 PUFF INHALER INH SCH ×2 (07:21→18:57)
[2017-08-06] MEDS: Citalopram 20 MG TAB PO SCH (07:57)
[2017-08-06] MEDS: Lisinopril 20 MG TAB PO SCH (07:57)
[2017-08-06] MEDS: Amlodipine 5 MG TAB PO SCH (07:58)
[2017-08-06] MEDS: levETIRAcetam 500 mg/5 ml Oral Solution PER TUBE SCH ×2 (08:32→20:09)
[2017-08-06] MEDS: Famotidine/PF 20 mg/2ml Vial SLOW IVP SCH (08:33)
[2017-08-06] MEDS: Enoxaparin Sodium 40 MG/0.4 ML SYRINGE SC SCH (08:33)
[2017-08-06] MEDS ORDERED: predniSONE 20 MG TAB PO SCH ×2 (09:29→09:45)
[2017-08-06] MEDS ORDERED: Famotidine 20 MG TAB PO SCH ×2 (09:29→09:45)
[2017-08-06] MEDS ORDERED: levETIRAcetam 500 mg/5 ml Oral Solution PER TUBE SCH ×2 (09:39→09:45)
--- NOTE | 2017-08-06 10:56 | PRG ---
DATE OF SERVICE: 08/06/2017 SUBJECTIVE: Mr. Mitchell was extubated yesterday. She is awake and alert today, says she is ready to go home. PHYSICAL EXAMINATION: VITAL SIGNS: Temperature is 97.9, pulse 106, blood pressure 171/106. 24-hour intake 2824, output 12 95. HEENT: Unremarkable. NECK: No JVD. CHEST: Fairly clear anteriorly. CARDIOVASCULAR: S1, S2 regular. ABDOMEN: Soft. EXTREMITIES: No edema. LABORATORY DATA: White blood count 14.9, hematocrit 31.4, platelet count 370. Sodium 136, potassium 4.3, chloride 104, CO2 28, BUN 17, creatinine 0.8, glucose 95. ASSESSMENT: 1. Status post acute respiratory failure requiring mechanical ventilation. 2. Pneumonia, which is improved. 3. Seizures at the time of admission. PLAN: 1. She can be transferred to the medical floor. 2. Initiate physical therapy consultation. 3. Continue IV antibiotics.
--- NOTE | 2017-08-06 11:33 | PRG ---
DATE OF SERVICE: 08/06/2017 SUBJECTIVE: The patient is seen and examined at bedside. She is in ICU C10 room. She is doing sign ificantly better and she is extubated. She ate her breakfast. She is hungry. She wants to go home. OBJECTIVE: VITAL SIGNS: Blood pressure is 160/97, pulse is 104, respiratory rate is in the 24, O2 saturation is 92. HEENT: Pupils respond to light properly. Sclerae is nonicteric. Conjunctivae pinkish. Oral mucosa is moist. NECK: Supple. LUNGS: Breath sounds somewhat diminished at the left base with few rales, no wheezing though. CARDIOVASCULAR: S1, S2, somewhat tachycardic. No S3, no S4. ABDOMEN: Soft, obese, nontender. EXTREMITIES: Right-sided is showing some paresis. NEUROLOGIC: She follows my commands. She is comprehending well. LABORATORY DATA: Showed a white count of 14.9, hemoglobin of 9.5, hematocrit 31.4, platelet count is 370. Chemistry showed normal electrolytes, BUN of 17, creatinine 0.88. Glycemia is 95. Microbiolo gy showed 2 blood cultures within normal limits and sputum aspirate with many WBCs and few gram posit mere cocci in pairs and clusters. ASSESSMENT AND PLAN: 1. Recurrent seizures. We will increase her Keppra dose to 1500 mg twice a day since her prior to h ospitalization dose was 1000 mg twice a day. She did not have more seizures since the time of admiss ion. 2. Respiratory failure, status post extubation. Her respiratory status is good comparing prior to t his extubation. She is growing some WBCs and gram positive cocci in her sputum, so there is some beck dence that she might have pneumonia, but this was just a mucous plug which is improved and the follow up chest x-ray from today shows significant improvement of the consolidation in the left lung, but we will continue Zosyn. 3. Hypertensive urgency. The patient was placed back on her lisinopril and she was given also 5 mg of amlodipine and her blood pressure seems to be doing slightly better. 4. Low renal urinary output, improved with IV fluids. Her creatinine improved from 1.2 down to belo w 1 with IV bolus and IV maintenance fluids. 5. Elevated TSH at the time of admission and back to normal TSH with the followup testing, not requi re any intervention. 6. Hypokalemia, improved. 7. Seizure disorder. 8. History of cerebrovascular accident with right-sided paresis. 9. Dyslipidemia. 10. Chronic obstructive pulmonary disease per history. So plan is to continue her Zosyn and IV piggyback, continue her IV steroids, decreased the IV rate to 75 mL per hour. She started making better urine output and she takes fluids orally without any prob lems. We will increase her Keppra to 1500 mg twice a day as per recommendation from Dr. Chavez and we will transfer her to medical bed today.
[2017-08-06] MEDS: Famotidine 20 MG TAB PO SCH (20:09)
[2017-08-06] MEDS: Atorvastatin Calcium 10 MG TAB PO SCH (20:09)
[2017-08-07] MEDS: Piperacillin/Tazobactam 3.375 GM in Sodium Chloride 0.9% 100 ML IVPB SCH ×3 (00:15→12:05)
[2017-08-07 06:19] LABS: #Eosinphils 0.1 thou/uL (0.0-0.7); #Lymphocytes 2.9 thou/uL (1.20-3.40); #Monocytes 0.9 thou/uL (0.11-0.59); #Neutrophils 10.9 thou/uL (1.40-6.50); %Basophils 0.1 % (0.0-1.0); %Eosinophils 0.4 % (0.0-10.0); %Lymphocytes 19.6 % (21.0-51.0); %Monocytes 6.1 % (0.0-10.0); Hematocrit 33.5 % (36.0-47.0); Red Blood Cell (RBC) Count 3.96 mill/uL (4.20-5.40); White Blood Cell (WBC) Count 14.8 thou/uL (4.8-10.8)
[2017-08-07 06:37] LABS: Anion Gap 6 mmol/L (10-20); BUN (Urea Nitrogen) 11 mg/dL (9.8-20.1); Calc. Creatinine Clearance 116 mL/min (70-130); Calcium 8.7 mg/dL (7.8-10.44); Carbon Dioxide 33 mmol/L (23-31); Chloride 103 mmol/L (98-107); Estimated GFR-MDRD 88
[2017-08-07] MEDS: Mometasone/Formoterol 120 PUFF INHALER INH SCH ×2 (06:52→18:59)
[2017-08-07] MEDS: Amlodipine 5 MG TAB PO SCH (07:10)
[2017-08-07] MEDS: Lisinopril 20 MG TAB PO SCH (07:10)
[2017-08-07] MEDS ORDERED: Diabetic Tussin 200 MG/10 ML UDCUP PO PRN (07:35)
[2017-08-07] MEDS ORDERED: Senokot 8.6 MG TAB PO PRN (07:35)
[2017-08-07] MEDS ORDERED: Artificial Tears 18 DROP/0.9 ML EA EYE PRN (07:35)
[2017-08-07] MEDS ORDERED: Chloraseptic Spray 180 ml Bottle PO PRN (07:35)
[2017-08-07] MEDS ORDERED: Loratadine 10 MG TAB PO PRN (07:35)
[2017-08-07] MEDS ORDERED: Mag-Al 1200 mg/1200 mg/30 ML UDCUP PO PRN (07:35)
[2017-08-07] MEDS ORDERED: Sodium Chloride 0.65% Nasal 44 ML BOT EA NARE PRN (07:35)
[2017-08-07] MEDS ORDERED: Ondansetron HCl/PF 4 MG/2 ML Vial IVP PRN (07:35)
[2017-08-07] MEDS ORDERED: Ondansetron ODT 4 MG TAB PO PRN (07:35)
[2017-08-07] MEDS ORDERED: Milk Of Magnesia 30 ML UDCUP PO PRN (07:35)
[2017-08-07] MEDS ORDERED: Eucerin (Mineral Oil/Petrolatum,White) 30 gm Jar TOP PRN (07:35)
[2017-08-07] MEDS ORDERED: Loperamide HCl 2 MG CAP PO PRN (07:35)
[2017-08-07] MEDS ORDERED: hydrALAZINE 20 MG/ML VIAL SLOW IVP PRN (07:35)
[2017-08-07] MEDS ORDERED: Temazepam 15 MG CAP PO PRN (07:35)
[2017-08-07] MEDS ORDERED: cloNIDine 0.1 MG TAB PO PRN (07:35)
[2017-08-07] MEDS: predniSONE 20 MG TAB PO SCH (07:38)
[2017-08-07] MEDS: levETIRAcetam 500 mg/5 ml Oral Solution PER TUBE SCH ×2 (07:38→20:24)
[2017-08-07] MEDS: Citalopram 20 MG TAB PO SCH (07:38)
[2017-08-07] MEDS: Famotidine 20 MG TAB PO SCH ×2 (07:38→20:23)
[2017-08-07] MEDS: Enoxaparin Sodium 40 MG/0.4 ML SYRINGE SC SCH (07:39)
[2017-08-07] MEDS ORDERED: Lorazepam 2 MG/ML VIAL SLOW IVP SCH (10:30)
--- NOTE | 2017-08-07 13:01 | PDOC.PN ---
- Subjective Encounter Start Date: 08/07/17 Encounter Start Time: 10:20 -: old records requested/rev Patient seen and examined. No new complaints. No overnight events, no fever, no cough, no seizure so far - Objective Resuscitation Status: Resuscitation Status FULL:Full Resuscitation MAR Reviewed: Yes Vital Signs & Weight: Vital Signs (12 hours) Temp Pulse Resp BP BP Pulse Ox 08/07/17 10:00 98.1 F 90 18 96 08/07/17 08:00 98.1 F 90 18 136/82 97 08/07/17 07:10 88 182/123 H 08/07/17 06:52 74 16 08/07/17 06:42 95 08/07/17 06:40 74 16 08/07/17 04:00 98.2 F 79 16 168/110 H 95 Weight Admit Weight 218 lb Weight 225 lb 15.581 oz Most Recent Monitor Data Heart Rate from ECG 65 NIBP 130/78 NIBP BP-Mean 93 Respiration from ECG 32 SpO2 99 I&O: 08/06/17 08/07/17 08/08/17 06:59 06:59 06:59 Intake Total 2824.6 4867 480 Output Total 1295 3280 Balance 1529.6 1587 480 Result Diagrams: 08/07/17 05:12 08/07/17 05:12 Phys Exam - Physical Examination Constitutional: NAD HEENT: PERRLA, moist MMs, sclera anicteric Neck: no JVD, supple Respiratory: no wheezing, no rales, no rhonchi reduced air entry at base Cardiovascular: RRR, no significant murmur, no rub Gastrointestinal: soft, non-tender, no distention, positive bowel sounds Musculoskeletal: no edema, pulses present Neurological: moves all 4 limbs Lymphatic: no nodes Psychiatric: normal affect Skin: no rash, normal turgor Dx/Plan (1) Atelectasis Status: Acute (2) Pneumonia Code(s): J18.9 - PNEUMONIA, UNSPECIFIED ORGANISM Status: Acute Qualifiers: Pneumonia type: aspiration pneumonia Laterality: bilateral Lung location : unspecified part of lung (3) Recurrent seizures Code(s): G40.909 - EPILEPSY, UNSP, NOT INTRACTABLE, WITHOUT STATUS EPILEPTICUS Status: Acute (4) Anemia, normocytic normochromic Code(s): D64.9 - ANEMIA, UNSPECIFIED Status: Chronic (5) Anxiety and depression Code(s): F41.8 - OTHER SPECIFIED ANXIETY DISORDERS Status: Chronic (6) Dyslipidemia Code(s): E78.5 - HYPERLIPIDEMIA, UNSPECIFIED Status: Chronic (7) GERD (gastroesophageal reflux disease) Code(s): K21.9 - GASTRO-ESOPHAGEAL REFLUX DISEASE WITHOUT ESOPHAGITIS Status: Chronic (8) H/O: CVA (cerebrovascular accident) Code(s): Z86.73 - PRSNL HX OF TIA (TIA), AND CEREB INFRC W/O RESID DEFICITS Status: Chronic (9) Hypertension Code(s): I10 - ESSENTIAL (PRIMARY) HYPERTENSION Status: Chronic (10) Obesity (BMI 30-39.9) Code(s): E66.9 - OBESITY, UNSPECIFIED Status: Chronic (11) Restless leg syndrome Status: Chronic (12) Seizure disorder Code(s): G40.909 - EPILEPSY, UNSP, NOT INTRACTABLE, WITHOUT STATUS EPILEPTICUS Status: Chronic (13) Acute kidney failure Status: Resolved (14) Acute respiratory failure with hypoxia Code(s): J96.01 - ACUTE RESPIRATORY FAILURE WITH HYPOXIA Status: Resolved - Plan cont current plan of care, plan discussed w/ family, kimbrough catheter, continue antibiotics, PT/OT, child welfare social worker, respiratory therapy, incentive spirometry * DC kimbrough * incentive spirometry * continue IV antibiotics as ordered * continue keppra, dose increased this admission * wean off oxygen * overall doing well, expecting discharge soon * will repeat labs tomorrow * discussed with family bedside * medication reviewed as below * symptomatic treatment. Review of Systems - Review of Systems Constitutional: negative: Fever, Chills, Sweats, Weakness, Malaise, Other Eyes: negative: Pain, Vision Change, Conjunctivae Inflammation, Eyelid Inflammation, Redness, Other ENT: negative: Ear Pain, Ear Discharge, Nose Pain, Nose Discharge, Nose Congestion, Mouth Pain, Mouth Swelling, Throat Pain, Throat Swelling, Other Respiratory: Cough, Shortness of Breath. negative: Dry, Hemoptysis, SOB with Excertion, Pleuritic Pain, Sputum, Wheezing Cardiovascular: negative: Chest Pain, Palpitations, Orthopnea, Paroxysmal Noc. Dyspnea, Edema, Light Headedness, Other Gastrointestinal: negative: Nausea, Vomiting, Abdominal Pain, Diarrhea, Constipation, Melena, Hematochezia, Other Genitourinary: negative: Dysuria, Frequency, Incontinence, Hematuria, Retention , Other Musculoskeletal: negative: Neck Pain, Shoulder Pain, Arm Pain, Back Pain, Hand Pain, Leg Pain, Foot Pain, Other Skin: negative: Rash, Lesions, Bravo, Bruising, Other - Medications/Allergies Allergies/Adverse Reactions: Allergies Allergy/AdvReac Type Severity Reaction Status Date / Time haloperidol [From Haldol] Allergy Verified 08/04/17 02:22 haloperidol lactate Allergy Verified 08/04/17 02:22 [From Haldol] Medications: Current Medications Acetaminophen (Tylenol) 650 mg PO Q4H PRN PRN Reason: Headache/Fever or Pain Al Hydroxide/Mg Hydroxide (Maalox) 15 ml PO Q4H PRN PRN Reason: Heartburn or Indigestion Albuterol/Ipratropium (Duoneb) 3 ml NEB [id number] [facility] Last Admin: 08/07/17 12:59 Dose: 3 ml Albuterol/Ipratropium (Duoneb) 3 ml NEB Q4H PRN PRN Reason: SOB &/or Wheezing Amlodipine Besylate (Norvasc) 5 mg PO DAILY [facility] Last Admin: 08/07/17 07:10 Dose: 5 mg Amoxicillin/Clavulanate Potassium (Augmentin) 875 mg PO Q12HR [facility] Artificial Tears (Tears Naturale) 0 drop EA EYE PRN PRN PRN Reason: Dry Eyes Aspirin (Aspirin Chewable) 81 mg PER TUBE DAILY [facility] Last Admin: 08/07/17 07:38 Dose: 81 mg Atorvastatin Calcium (Lipitor) 10 mg PO HS [facility] Last Admin: 08/06/17 20:09 Dose: 10 mg Citalopram Hydrobromide (Celexa) 40 mg PO DAILY [facility] Last Admin: 08/07/17 07:38 Dose: 40 mg Clonidine (Catapres) 0.1 mg PO Q4H PRN PRN Reason: Systolic BP > 180 Enoxaparin Sodium (Lovenox) 40 mg SC 0900 [facility] Last Admin: 08/07/17 07:39 Dose: 40 mg Famotidine (Pepcid) 20 mg PO BID [facility] Last Admin: 08/07/17 07:38 Dose: 20 mg Guaifenesin (Robitussin Sf) 200 mg PO Q4H PRN PRN Reason: Cough Hydralazine HCl (Apresoline) 10 mg SLOW IVP Q4H PRN PRN Reason: Systolic BP > 180 Levetiracetam (Keppra Oral Solution) 1,500 mg PER TUBE BID [facility] Last Admin: 08/07/17 07:38 Dose: 1,500 mg Lisinopril (Zestril) 40 mg PO DAILY [facility] Last Admin: 08/07/17 07:10 Dose: 40 mg Loperamide HCl (Imodium) 2 mg PO PRN PRN PRN Reason: Diarrhea/Loose Stools Loratadine (Claritin) 10 mg PO DAILYPRN PRN PRN Reason: Sinus Symptoms Magnesium Hydroxide (Milk Of Magnesium) 30 ml PO DAILYPRN PRN PRN Reason: Constipation Mineral Oil/White Petrolatum (Eucerin Cream) 0 gm TOP BIDPRN PRN PRN Reason: Dry Skin Mometasone Furoate/Formoterol Fumar (Dulera 200 Mcg/5 Mcg Inhaler) 2 puff INH BID-RT [facility] Last Admin: 08/07/17 06:52 Dose: 2 puff Discontinue Previous Narcotic Pain Medications And Benzodiazepines 1 each FS .ONE [facility] Stop: 09/03/17 02:27 Ondansetron HCl (Zofran Odt) 4 mg PO Q6H PRN PRN Reason: Nausea/Vomiting Ondansetron HCl (Zofran) 4 mg IVP Q6H PRN PRN Reason: Nausea/Vomiting Phenol (Chloraseptic Hiller 180 Ml Bot) 0 ml PO PRN PRN PRN Reason: Sore Throat Prednisone (Prednisone) 20 mg PO DAILY [facility] Last Admin: 08/07/17 07:38 Dose: 20 mg Senna (Senokot) 2 tab PO HSPRN PRN PRN Reason: Constipation Sodium Chloride (Flush - Normal Saline) 10 ml IVF Q12HR [facility] Last Admin: 08/07/17 07:39 Dose: 10 ml Sodium Chloride (Flush - Normal Saline) 10 ml IVF PRN PRN PRN Reason: Saline Flush Sodium Chloride ([place] Nasal Hiller 0.65%) 0 ml EA NARE QIDPRN PRN PRN Reason: Nasal Congestion Temazepam (Restoril) 15 mg PO HSPRN PRN PRN Reason: Insomnia
--- NOTE | 2017-08-07 14:00 | PRG ---
DATE OF SERVICE: 08/07/2017 SUBJECTIVE: Ms. Mitchell feels better. She had no acute complaints today. She wants to go home. PHYSICAL EXAMINATION: VITAL SIGNS: Temperature is 98.1, pulse 90, respirations 18, O2 sat 96% on 2 liters, blood pressure 136/82. HEENT: Unremarkable. NECK: No JVD. CHEST: Clear without wheezing. CARDIAC: S1 and S2 regular. ABDOMEN: Soft. EXTREMITIES: No edema. ASSESSMENT: 1. Status post seizure. 2. Pneumonia, which is improved. PLAN: She looks like she is close to discharge. I will go ahead and convert her over to Augmentin. I think she can probably go home on 5 days of Augmentin. She can follow up with Dr. Arora in a few weeks for repeat chest x-ray.
[2017-08-07] MEDS: Amoxicillin/Potassium Clav 875 MG TAB PO SCH (20:23)
[2017-08-07] MEDS: Atorvastatin Calcium 10 MG TAB PO SCH (20:23)
[2017-08-07] MEDS: Acetaminophen 325 MG TAB PO PRN (23:50)
[2017-08-08] MEDS: Acetaminophen 325 MG TAB PO PRN (05:20)
[2017-08-08 05:38] LABS: #Basophils 0.1 thou/uL (0.0-0.2); #Eosinphils 0.2 thou/uL (0.0-0.7); #Lymphocytes 3.8 thou/uL (1.20-3.40); #Monocytes 0.9 thou/uL (0.11-0.59); #Neutrophils 9.2 thou/uL (1.40-6.50); %Basophils 0.6 % (0.0-1.0); %Eosinophils 1.4 % (0.0-10.0); %Lymphocytes 26.6 % (21.0-51.0); %Monocytes 6.3 % (0.0-10.0); Hematocrit 33.2 % (36.0-47.0); Mean Platelet Volume 7.7 fL (7.4-10.4); Red Blood Cell (RBC) Count 3.93 mill/uL (4.20-5.40); White Blood Cell (WBC) Count 14.1 thou/uL (4.8-10.8)
[2017-08-08 05:51] LABS: Anion Gap 8 mmol/L (10-20); BUN (Urea Nitrogen) 12 mg/dL (9.8-20.1); Calc. Creatinine Clearance 126 mL/min (70-130); Calcium 8.8 mg/dL (7.8-10.44); Carbon Dioxide 35 mmol/L (23-31); Chloride 100 mmol/L (98-107); Estimated GFR-MDRD Greater than 90
[2017-08-08] MEDS: Mometasone/Formoterol 120 PUFF INHALER INH SCH (06:35)
[2017-08-08 08:09] VITALS: BP 132/79; TEMP 98.4
[2017-08-08] MEDS: Amoxicillin/Potassium Clav 875 MG TAB PO SCH (08:38)
[2017-08-08] MEDS: Amlodipine 5 MG TAB PO SCH (08:38)
[2017-08-08] MEDS: Citalopram 20 MG TAB PO SCH (08:38)
[2017-08-08] MEDS: Lisinopril 20 MG TAB PO SCH (08:39)
[2017-08-08] MEDS: Famotidine 20 MG TAB PO SCH (08:39)
[2017-08-08] MEDS: levETIRAcetam 500 mg/5 ml Oral Solution PER TUBE SCH (08:39)
[2017-08-08] MEDS: Enoxaparin Sodium 40 MG/0.4 ML SYRINGE SC SCH (08:39)
[2017-08-08] MEDS: predniSONE 20 MG TAB PO SCH (08:39)
--- NOTE | 2017-08-08 14:52 | DIS ---
DATE OF ADMISSION: 08/04/2017 DATE OF DISCHARGE: 08/08/2017 PRIMARY CARE PHYSICIAN: Blanca Rose M.D. DISCHARGE DISPOSITION: Home. PRIMARY DISCHARGE DIAGNOSES: 1. Recurrent seizure. 2. Aspiration pneumonia. 3. Mucous plugging and atelectasis of lungs. 4. Acute kidney failure, improved. 5. Acute respiratory failure with hypoxia, resolved. SECONDARY DISCHARGE DIAGNOSES: Seizure disorder, restless leg syndrome, obesity with body mass index 35, hypertension, history of cerebrovascular accident, gastroesophageal reflux disease, dyslipidemia , anxiety and depression, normocytic normochromic anemia. PRIMARY PROCEDURE/OPERATION: Endotracheal intubation and mechanical ventilatory support, central pietro e placement. RADIOLOGICAL INVESTIGATION: CT brain on admission showed partially calcified meningioma in right mid dle cranial fossa with vasogenic edema in right temporal lobe. Encephalomalacia in the left cerebell ar hemisphere. Chest x-ray on admission showed cardiomegaly with mild pulmonary vascular congestion. CT angiography was negative for pulmonary embolism, but it did show emphysematous changes, low dens ity structure and epicardial region, consultation of the lung base, mild cardiomegaly. Next day, [address] x-ray showed left-sided opacification. Repeat chest x-ray showed improvement in infiltration and opacification. SIGNIFICANT LABORATORY DATA: WBC 14.1, hemoglobin 9.9, platelets 368. Sodium 139, potassium 3.8, BU N 12, creatinine 0.74, calcium 8.8. Free T4 0.88, TSH 3.05. LFTs normal. Cardiac enzymes negative. TSH 11.36. Urinalysis unremarkable. Urine drug screen negative. Keppra level 37.6, blood culture negative. DISCHARGE MEDICATIONS: Keppra 1500 mg p.o. b.i.d., Augmentin 875 mg p.o. b.i.d. for 7 days, amlodipi ne 5 mg p.o. daily, Aggrenox 1 capsule p.o. b.i.d., Celexa 40 mg p.o. daily, Nexium 20 mg p.o. daily, lisinopril 40 mg p.o. daily, Dulera 2 puffs inhalation b.i.d., pravastatin 40 mg p.o. at bedtime, pr ednisone 20 mg p.o. daily for 7 days, Florastor 250 mg p.o. daily for 7 days, Synthroid 25 mcg p.o. d aily. CONTRAINDICATIONS: None. CODE STATUS: FULL CODE. INPATIENT CONSULTANTS: Dr. Love was following while in hospital. Dr. Adamaris Rawls, neurologist w as consulted while in hospital. TEST RESULTS PENDING ON DISCHARGE: None. ALLERGIES: HALOPERIDOL. DISCHARGE PLAN: Post hospital, the patient will follow up with primary care physicians, Dr. Love and Dr. Adamaris Rawls. HOSPITAL COURSE: A 61-year-old female who was admitted by Dr. Mckeon on 08/04/2017. Please see his H&P for further details. The patient was admitted for recurrent seizures and she was intubated for airway protection. The patient was admitted in ICU, patient was evaluated by the [facility] . In the emergency room, patient had CT brain which showed calcified meningioma in right middle cran ial fossa as well as previous encephalomalacia in the left cerebral hemisphere from previous stroke. CT angio was negative for pulmonary embolism, but it did show bibasilar infiltration. The patient was intubated and patient had repeat chest x-ray on 08/04/2017 which showed left-sided op acification. There was concern of underlying fluid and that is why Dr. Tab Wang was consulted, but he was thinking that this patient has mostly mucous plug and he did not want to do anything. Nohemy prisingly, next day when we repeated chest x-ray, chest x-ray was completely cleared. We suspected for aspiration pneumonia from recurrent seizures and we treated her with broad spectrum antibiotic therapy. On discharge, we changed to Augmentin. Initially, she was given Zosyn while in hospital. Patient was also given steroid and on discharge we changed to p.o. prednisone. She was having recurrent seizures and that is why Dr. Bailon was consulted and he recommended to inc reased dose of Keppra from 1313-9809 twice daily. She had hypothyroidism and that is why we started levothyroxine therapy on her regimen. Patient was also having abnormal electrolytes that were correc juaquin while in hospital. Patient had central line placement, endotracheal intubation. Patient was subsequently extubated and she was transferred to medical floor. Her central line was removed by the time of discharge. This patient did not require any oxygen therapy because her oxygen saturation was normal by the time of discharge. Today, Dr. Love saw this patient and he cleared her for discharge. The patient is seen and examined at bedside today. All review of systems reviewed with her and summer severino. Plan of care discussed with the family member. PHYSICAL EXAMINATION: VITAL SIGNS: Currently, temperature 98.3, pulse 89, respiratory rate 18, saturation 95%, blood press ure 132/79. Weight 225 pounds. GENERAL: The patient is currently alert, awake, no acute distress. HEAD: Normocephalic, atraumatic. LUNGS: Clear. CARDIAC: S1 and S2 regular without any significant murmur. ABDOMEN: Soft and benign. EXTREMITIES: No edema. NEUROLOGIC: Nonfocal examination. All new medication prescriptions sent to her pharmacy. The patient is medically stable for discharge today. Total time spent on discharge day 31 minutes.
== END 2017-08-08 12:38 | disposition home or self-care (01) | DRG 100 ==
LOC: ERS 21:23 → CCU 08-04 01:00 → T4-B 08-06 15:20
PROVIDERS: ADMIT Internal Medicine; ATTEND Internal Medicine
PROC: 5A1945Z Respiratory Ventilation, 24-96 Consecutive Hours (ICD-10-PCS; principal; 2017-08-04)
PROC: 02HV33Z Insertion of Infusion Device into Superior Vena Cava, Percutaneous Approach (ICD-10-PCS; 2017-08-04)
PROC: 0BH17EZ Insertion of Endotracheal Airway into Trachea, Via Natural or Artificial Opening (ICD-10-PCS; 2017-08-05)
PROC: 5A09457 Assistance with Respiratory Ventilation, 24-96 Consecutive Hours, Continuous Positive Airway Pressure (ICD-10-PCS; 2017-08-05)
DX: G40.909 Epilepsy, unspecified, not intractable, without status epilepticus (principal); G93.6 Cerebral edema; J96.01 Acute respiratory failure with hypoxia; J69.0 Pneumonitis due to inhalation of food and vomit; I69.351 Hemiplegia and hemiparesis following cerebral infarction affecting right dominant side; T17.890A Other foreign object in other parts of respiratory tract causing asphyxiation, initial encounter; I10 Essential (primary) hypertension; J44.9 Chronic obstructive pulmonary disease, unspecified; D32.0 Benign neoplasm of cerebral meninges; E78.5 Hyperlipidemia, unspecified; G93.89 Other specified disorders of brain; I69.398 Other sequelae of cerebral infarction; I16.0 Hypertensive urgency; K21.9 Gastro-esophageal reflux disease without esophagitis; D64.9 Anemia, unspecified; E87.6 Hypokalemia; G25.81 Restless legs syndrome; E66.9 Obesity, unspecified; F32.9 Major depressive disorder, single episode, unspecified; F41.9 Anxiety disorder, unspecified; Z68.35 Body mass index [BMI] 35.0-35.9, adult; Z88.8 Allergy status to other drugs, medicaments and biological substances; X58.XXXA Exposure to other specified factors, initial encounter
CPT/HCPCS: 31500; 36415; 36416; 36556; 51702; 70450; 71010; 71275; 80048; 80053; 80177; 80306; 81003; 81015; 82553; 82805; 83630; 83735; 84439; 84443; 84484; 85025; 87040; 87070; 87205; 89220; 93005; 94002; 94003; 94640; 94760; 96365; 96366; 96368; 96375; 96376; 99292; A4216; C1751; G8978-GP-CJ; G8979-GP-CI; J1650; J1940; J1953; J2060; J2543; J2704; J2920; J3010; J3480; J3490; J7050; J7506; J7620; S0028

== ENCOUNTER 2017-11-15 08:57 | Inpatient (IN) | payer SELFPAY ==
[2017-11-15] MEDS ORDERED: Acetaminophen 325 MG Suppository ONE (09:36)
[2017-11-15] MEDS ORDERED: Acetaminophen 650 MG Suppository ONE (09:41)
--- NOTE | 2017-11-15 10:02 | RAD ---
PORTABLE CHEST 1 VIEW: Date: 11/15/17 Time: 0940 hours HISTORY: Altered mental status. FINDINGS/IMPRESSION: Comparison made with exam of 08/05/17. The heart size is enlarged. The aorta is tortuous. No lobar consolidation, pneumothoraces, can pulm onary edema, or large effusions are seen. POS: [facility]
--- NOTE | 2017-11-15 10:04 | CT ---
CT BRAIN WITHOUT CONTRAST: Date: 11/15/17 HISTORY: Seizure. FINDINGS: Comparison made with exam of 08/03/17. The calcified meningioma in the right middle cranial fossa causing vasogenic edema in the right tempo ral lobe is unchanged. The encephalomalacia in the left cerebral hemisphere consistent with old left MCA infarction is uncha nged. Minimal midline shift to the left measuring about 3.0 mm is stable. No evidence of acute infarct, hemorrhage, or abnormal extra-axial fluid collections seen. The bony ca lvarium is intact. The visualized paranasal sinuses and mastoid air cells are well aerated. IMPRESSION: Stable exam. No acute process. POS: [facility]
[2017-11-15 10:35] LABS: Bilirubin Negative (Negative); Blood, Urine Large (Negative); Clarity CLOUDY (Clear); Glucose, Urine (Dipstick) Negative (Negative); Leukocyte Moderate (Negative); Nitrite Negative (Negative); Protein, Urine (Dipstick) Negative (Neg-Trace); Specific Gravity, Urine 1.019 (1.002-1.036); pH, Urine 8.5 (5.0-9.0)
[2017-11-15] MEDS ORDERED: Piperacillin/Tazobactam 4.5 GM in Sodium Chloride 0.9% 100 ML IVPB SCH (10:45)
[2017-11-15 10:46] LABS: Bacteria/HPF None Seen HPF (None Seen); Hyaline Casts/LPF 0-3 HYALINE CAST LPF (0-3 Hyaline); Pathc Cast-AUWi Flag 0.54 (0-2.49); RBC/HPF GREATER THAN 50-TNTC HPF (0-3); Squamous Epithelial 0-3 HPF (0-3)
[2017-11-15 10:50] LABS: #Basophils 0.1 thou/uL (0.0-0.2); #Lymphocytes 1.5 thou/uL (1.20-3.40); #Monocytes 0.5 thou/uL (0.11-0.59); %Basophils 0.6 % (0.0-1.0); %Eosinophils 0.2 % (0.0-10.0); %Lymphocytes 14.9 % (21.0-51.0); %Monocytes 4.5 % (0.0-10.0); %Neutrophils 79.9 % (42.0-75.0); Mean Corpuscular Hemoglobin 23.7 pg (27.0-31.0); Mean Corpuscular Volume 76.4 fl (81.0-99.0); Mean Platelet Volume 8.2 fL (7.4-10.4); Platelet Count 340 thou/uL (130-400); RBC Distribution Width 16.7 % (11.5-14.5); Red Blood Cell (RBC) Count 4.63 mill/uL (4.20-5.40)
[2017-11-15 10:53] LABS: Prothrombin Time 13.7 SEC (12.0-14.7)
[2017-11-15 11:08] LABS: ALT (SGPT) 10 U/L (8-55); AST (SGOT) 13 U/L (5-34); Albumin 3.9 g/dL (3.4-4.8); Alkaline Phosphatase 91 U/L (40-150); Anion Gap 12 mmol/L (10-20); BUN (Urea Nitrogen) 11 mg/dL (9.8-20.1); Bilirubin, Total 0.3 mg/dL (0.2-1.2); Calc. Creatinine Clearance 0 mL/min (70-130); Carbon Dioxide 25 mmol/L (23-31); Chloride 101 mmol/L (98-107); Estimated GFR-MDRD 87; Globulin 4.2 g/dL (2.4-3.5); Glucose 88 mg/dL (80-115); Lipase 15 U/L (8-78); Magnesium 2.1 mg/dL (1.6-2.6); Potassium 4.1 mmol/L (3.5-5.1); Protein, Total 8.1 g/dL (6.0-8.3); Sodium 134 mmol/L (136-145)
[2017-11-15 11:12] LABS: CKMB 0.7 ng/mL (0-6.6); Troponin I Less than 0.010 ng/mL (< 0.028)
[2017-11-15] MEDS ORDERED: levETIRAcetam In NaCl (Iso-Os) 1,000 MG in Premix Bag 1 BAG IVPB ONE (11:15)
[2017-11-15] MEDS ORDERED: cefTRIAXone\\ROCEPHIN 2 GM in Sodium Chloride 0.9% 100 ML IVPB SCH (12:00)
[2017-11-15] MEDS ORDERED: Diabetic Tussin 200 MG/10 ML UDCUP PO PRN (13:46)
[2017-11-15] MEDS ORDERED: cloNIDine 0.1 MG TAB PO PRN (13:46)
[2017-11-15] MEDS ORDERED: Calcium Carbonate 500 MG ChewTAB PO PRN (13:46)
[2017-11-15] MEDS ORDERED: Senokot 8.6 MG TAB PO PRN (13:46)
[2017-11-15] MEDS ORDERED: Loratadine 10 MG TAB PO PRN (13:46)
[2017-11-15] MEDS ORDERED: Ondansetron HCl/PF 4 MG/2 ML Vial IVP PRN (13:46)
[2017-11-15] MEDS ORDERED: Bisacodyl 5 MG TAB PO PRN (13:46)
[2017-11-15] MEDS ORDERED: Mag-Al 1200 mg/1200 mg/30 ML UDCUP PO PRN (13:46)
[2017-11-15] MEDS ORDERED: Benzonatate 100 MG CAP PO PRN (13:46)
[2017-11-15] MEDS ORDERED: Milk Of Magnesia 30 ML UDCUP PO PRN (13:46)
[2017-11-15] MEDS ORDERED: Nitroglycerin 0.4 MG TAB (25 Tab Bottle) SL PRN (13:46)
[2017-11-15] MEDS ORDERED: Acetaminophen 650 MG Suppository PR PRN (13:46)
[2017-11-15] MEDS ORDERED: Bisacodyl 10 MG SUPP PR PRN (13:46)
[2017-11-15] MEDS ORDERED: traMADol HCl 50 MG TAB PO PRN (13:46)
[2017-11-15] MEDS ORDERED: Acetaminophen 325 MG TAB PO PRN (13:46)
[2017-11-15] MEDS ORDERED: hydrALAZINE 20 MG/ML VIAL SLOW IVP PRN (13:46)
--- NOTE | 2017-11-15 14:58 | HP ---
PRIMARY CARE PHYSICIAN: Cale Cross M.D. CHIEF COMPLAINT: Seizures and altered mental status. HISTORY OF PRESENTING ILLNESS: Ms. Mitchell is a very pleasant 62-year-old -[place]oz[place] female wit h past medical history of seizure disorder, brain meningioma, stable over the years, as well as histo ry of hypertension and CVA with residual right-sided paralysis who presented to the emergency room wi th above-mentioned complaint. History is mainly obtained by the patient's daughter present in the ro om. The patient has some expressive aphasia and is unable to give much history. Electronic medical records have been reviewed and the case has been discussed with admitting ER physi Dr. Kym moreno. The patient was last admitted to our facility in 07/2017 for breakthrough seizures and at that time s he required endotracheal intubation for protection of the airways and eventually developing aspiratio n pneumonia requiring prolonged hospitalization. Ms. Mitchell's daughter report that she has been feeling fine up until this morning. She went to bed a round 11:30 last night. She is normally ambulatory with help of a walker and is independent with her ADLs and IADLs and has no limitations with regards to her mentation. However, this morning when the daughter went to wake her up, she noted that her mother had twitching of the face and mouth and was unresponsive, despite her eyes being open. She tried to shake her awake, but the symptoms persisted for about 10 minutes before she came back and became more aware. Since the episode, she has been hav ing difficulty with her speech. She is trying to talk and knows what to say, but her words are not c oming out. With this, the patient was brought to the emergency room. In the ER, she was noticed to be febrile with a temperature of 102.4 and tachycardic with a heart rat e in hundred teens. Initial workup included a CT scan of the brain which showed stable meningioma wi th vasogenic edema in the right temporal lobe, unchanged from prior exam and no evidence of acute inf arction or hemorrhage. Chest x-ray was unremarkable as well. Her CBC shows some neutrophilia withou t any elevated WBCs. Her serum chemistries are unremarkable and her Keppra level is 14.6. Her urina lysis; however, shows gross and microscopic hematuria with elevated leukocyte esterase and multiple W BCs. Given the findings of fever, tachycardia, and dirty urine, she was diagnosed as sepsis and rece ived IV fluids and IV antibiotics, namely Zosyn and Rocephin in the emergency room and has been feeli ng much better. She has also received 1 dose of IV Keppra 1000 mg. The patient's daughter reports that after her last hospitalization, her Keppra was increased from 100 0 b.i.d. to 1500 mg b.i.d. However, when they saw her primary care physician, he was not comfortable with her being on such high dose of Keppra and she was back on 1000 mg p.o. b.i.d. and that is what she has been taking for the last 3 months and has been seizure free. PAST MEDICAL HISTORY: 1. 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 2. History of seizure disorder. 3. Chronic meningioma. 4. Hypertension. 5. Dyslipidemia. 6. Chronic obstructive pulmonary disease. PAST SURGICAL HISTORY: 1. Appendectomy. 2. Bilateral tubal ligation. PSYCHIATRIC HISTORY: Anxiety, depression. ALLERGIES: HALDOL. SOCIAL HISTORY: She used to smoke half pack a day, but not smoking at this time. No history of drug or alcohol abuse. She lives with her daughter. She has history of marijuana abuse remotely. FAMILY HISTORY: Mother of a gunshot wound in her 60s. Father as well. Not much histo ry is available as the daughter does not recall much about her mother's family. CURRENT MEDICATIONS: As per the most recent discharge summary, she should be taking Keppra 1000 mg p .o. b.i.d., pravastatin 40 mg daily, lisinopril 40 mg daily, Synthroid 25 mcg daily, Nexium 20 mg mary ly, Celexa 40 mg daily, Aggrenox 1 capsule p.o. b.i.d. and Norvasc 5 mg p.o. daily. REVIEW OF SYSTEMS: It is largely unobtainable as the patient is not able to talk at this time. She responds with shaking of the head and nodding. She denies any abdominal pain, nausea, vomiting, and diarrhea. She denies any increased muscle weakness. She denies any vision changes or swallowing pro blems. She denies any chest pain or shortness of breath. PHYSICAL EXAMINATION: VITAL SIGNS: Upon presentation, blood pressure 151/83, pulse of 107, saturating 94% on room air, res pirations 22, and temperature 102.4. GENERAL: She is awake, alert, appears oriented to self, place, and person, but has expressive aphasi a, so it is difficult to ascertain. She follows simple commands. No acute distress. HEENT: Mucous membrane is moist and pink. She is missing multiple teeth. Head is normocephalic, at raumatic. Pupils are equal and reactive to light and accommodation. Extraocular movement intact. NECK: Supple without any lymphadenopathy, JVD or bruit. CHEST: Clear to auscultation without any wheezing, rales or rhonchi. CARDIOVASCULAR: Regular rate and rhythm is regular without any murmurs, rubs or gallops. ABDOMEN: Soft, nontender, nondistended with positive bowel sounds. EXTREMITIES: Free of any cyanosis, clubbing, or edema. NEUROLOGIC: Examination showed dense right upper extremity hemiparesis. She is able to move both lo wer extremities. She is moving left lower extremity against gravity and right lower extremity with g ravity. Expressive aphasia is noticed. No nystagmus. Otherwise, cranial nerves II-XII grossly inta ct. Sensation intact. PSYCHIATRIC: Normal affect. SKIN: Free of any rashes or bruises. I feel warm and dry to touch. LABORATORY DATA AND IMAGING DATA: CBC shows WBCs at 10 with 79% neutrophils, hemoglobin 11, platelet count of 340. PT, PTT and INR within normal limits. Serum chemistry shows sodium of 134, otherwise unremarkable. Lactic acid normal at 1.9. Liver enzymes normal. CK-MB and troponin within normal l imits. BNP normal at 89. Lipase normal at 15. Urinalysis showed large blood, greater than 50 wbc's and rbc's each and moderate leukocyte esterase. Keppra level is at 14.6 in the therapeutic range. Chest x-ray by my review has no evidence to suggest pneumonia, likely true aspiration. She has cardi omegaly but no consolidation or edema. CT scan of the brain by my review as per above without any ac zaria infarction or hemorrhage. IMPRESSION AND PLAN: 1. Altered mental status. It seems to be multifactorial at this time. There is a higher chance arlen t the patient is septic from the urinary tract infection, which lowered her seizure threshold and cau sed her to have seizure. Once again, given the history of meningioma, the progression of edema leadi ng to seizures can also not be ruled out. The likelihood of a new stroke remains low as she continue s to take the Aggrenox. At this time, we will obtain an MRI of the brain to check for the edema and any other causes of seizures as a progression of her meningioma and consult Neurology and Stroke Team . She will have frequent neuro checks and will be admitted to stroke floor. Antibiotics and IV flui ds have been initiated for the treatment of the urinary tract infection. Blood cultures and urine cu ltures will be obtained. We will have speech therapy evaluation and she will be n.p.o. until she taylor ars the speech swallow evaluation. 2. Sepsis. This is likely secondary to urinary tract infection. We will treat her with broad spect rum IV antibiotics till the cultures are finalized. We will use Zosyn for urinary tract infection in case she has aspirated and I will also add vancomycin for gram positive coverage. Antibiotic choice will be tapered once the culture results are back. Continue gentle IV fluid hydration and monitor c losely. She is currently hemodynamically stable. 3. Breakthrough seizures. Unfortunately, the patient has gone back to taking the Keppra 1000 mg p.o . b.i.d. instead of 1500 mg p.o. b.i.d. She might benefit from addition of another antiepileptic med ication. At this time, we will continue with Keppra 1000 mg IV b.i.d. and have Neurology input with regards to the same. 4. History of cerebrovascular accident. We will restart her home medications of Aggrenox and statin once she is cleared for oral intake. 5. History of hypertension, currently controlled. We will use p.r.n. antihypertensives and restart home medications once cleared for swallow. 6. Deep venous thrombosis and gastrointestinal prophylaxis. 7. Code status: FULL CODE. Discussed with the patient and her daughter. 8. Add p.r.n. medication orders. DISPOSITION: Ms. Gia Mitchell is currently being admitted for sepsis, breakthrough seizures and altere d mental status. Estimated length of stay is more than 2 midnights. Plan of care discussed with the patient and family member at bedside in the emergency room. Further management will depend upon her clinical course.
[2017-11-15 16:17] VITALS: BMI 36.6
[2017-11-15] MEDS: Sodium Chloride 0.9% 1,000 ML IV SCH (16:45)
[2017-11-15] MEDS: Vancomycin HCl 1.5 GM in Sodium Chloride 0.9% 250 ML 300 ML IVPB SCH (17:23)
[2017-11-15] MEDS ORDERED: Piperacillin/Tazobactam 3.375 GM in Sodium Chloride 0.9% 100 ML IVPB SCH (18:00)
[2017-11-15] MEDS ORDERED: Vancomycin HCl 1 GM in Premix Bag 1 BAG IVPB SCH (21:00)
[2017-11-15] MEDS: Famotidine/PF 20 mg/2ml Vial SLOW IVP SCH (21:29)
[2017-11-15] MEDS: Piperacillin/Tazobactam 3.375 GM in Sodium Chloride 0.9% 100 ML IVPB SCH (21:30)
[2017-11-15] MEDS: levETIRAcetam In NaCl (Iso-Os) 1,000 MG in Premix Bag 1 BAG IVPB SCH (21:41)
[2017-11-16] MEDS: Piperacillin/Tazobactam 3.375 GM in Sodium Chloride 0.9% 100 ML IVPB SCH ×4 (01:51→22:11)
[2017-11-16] MEDS: Vancomycin HCl 1.5 GM in Sodium Chloride 0.9% 250 ML 300 ML IVPB SCH ×2 (03:39→15:10)
[2017-11-16 05:44] LABS: #Basophils 0.1 thou/uL (0.0-0.2); #Eosinphils 0.2 thou/uL (0.0-0.7); #Lymphocytes 1.9 thou/uL (1.20-3.40); #Monocytes 0.5 thou/uL (0.11-0.59); #Neutrophils 5.6 thou/uL (1.40-6.50); %Basophils 0.8 % (0.0-1.0); %Eosinophils 2.5 % (0.0-10.0); %Monocytes 5.9 % (0.0-10.0); %Neutrophils 67.9 % (42.0-75.0); Hemoglobin 9.7 g/dL (12.0-16.0); Mean Corpuscular HGB CONC 30.7 g/dL (32.0-36.0); Mean Corpuscular Hemoglobin 23.3 pg (27.0-31.0); Mean Platelet Volume 8.4 fL (7.4-10.4); Platelet Count 338 thou/uL (130-400); RBC Distribution Width 16.8 % (11.5-14.5); Red Blood Cell (RBC) Count 4.13 mill/uL (4.20-5.40); White Blood Cell (WBC) Count 8.3 thou/uL (4.8-10.8)
[2017-11-16 06:05] LABS: Anion Gap 10 mmol/L (10-20); BUN (Urea Nitrogen) 8 mg/dL (9.8-20.1); Calc. Creatinine Clearance 128 mL/min (70-130); Calcium 8.8 mg/dL (7.8-10.44); Carbon Dioxide 28 mmol/L (23-31); Chloride 104 mmol/L (98-107); Estimated GFR-MDRD Greater than 90; Glucose 106 mg/dL (80-115); Potassium 3.7 mmol/L (3.5-5.1); Sodium 138 mmol/L (136-145)
[2017-11-16] MEDS: Famotidine/PF 20 mg/2ml Vial SLOW IVP SCH (10:08)
[2017-11-16] MEDS: Enoxaparin Sodium 40 MG/0.4 ML SYRINGE SC SCH (10:09)
[2017-11-16] MEDS: levETIRAcetam In NaCl (Iso-Os) 1,000 MG in Premix Bag 1 BAG IVPB SCH ×2 (10:14→21:00)
--- NOTE | 2017-11-16 14:25 | PDOC.PN ---
- Subjective Encounter Start Date: 11/16/17 Encounter Start Time: 07:20 Pt seen for followup re: seizure. Denies chest pain, shortness of breath, fevers and chills. No nausea or vomiting. No seizures overnight. - Objective MAR Reviewed: Yes Vital Signs & Weight: Vital Signs (12 hours) Temp Pulse Pulse Pulse Resp BP BP 11/16/17 11:57 98.8 F 89 18 11/16/17 08:49 86 67 185/115 H 153/101 H 11/16/17 08:00 98.2 F 81 18 11/16/17 07:42 81 80 179/101 H 177/103 H 11/16/17 05:34 11/16/17 04:15 98.3 F 61 16 BP Pulse Ox 11/16/17 11:57 157/85 H 95 11/16/17 08:49 11/16/17 08:00 179/109 H 94 L 11/16/17 07:42 11/16/17 05:34 156/91 H 11/16/17 04:15 162/70 H 92 L Weight Weight 233 lb 9 oz I&O: 11/15/17 11/16/17 11/17/17 06:59 06:59 06:59 Intake Total 344 Balance 344 Result Diagrams: 11/16/17 05:11 11/16/17 05:11 EKG Reviewed by me: Yes (Tele: NSR) Phys Exam - Physical Examination Obese HEENT: PERRLA, moist MMs, sclera anicteric, oral pharynx no lesions Neck: no nodes, no JVD, supple, full ROM Respiratory: no wheezing, no rales, no rhonchi, clear to auscultation bilateral Cardiovascular: RRR, no rub Gastrointestinal: soft, non-tender, no distention, positive bowel sounds Musculoskeletal: pulses present, edema present Neurological: moves all 4 limbs Psychiatric: normal affect Dx/Plan (1) Seizure Code(s): R56.9 - UNSPECIFIED CONVULSIONS Status: Acute (2) Acute encephalopathy Code(s): G93.40 - ENCEPHALOPATHY, UNSPECIFIED Status: Acute (3) UTI (urinary tract infection) Status: Acute (4) Sepsis Code(s): A41.9 - SEPSIS, UNSPECIFIED ORGANISM Status: Acute (5) Anxiety and depression Code(s): F41.8 - OTHER SPECIFIED ANXIETY DISORDERS Status: Chronic (6) Dyslipidemia Code(s): E78.5 - HYPERLIPIDEMIA, UNSPECIFIED Status: Chronic (7) GERD (gastroesophageal reflux disease) Code(s): K21.9 - GASTRO-ESOPHAGEAL REFLUX DISEASE WITHOUT ESOPHAGITIS Status: Chronic (8) H/O: CVA (cerebrovascular accident) Code(s): Z86.73 - PRSNL HX OF TIA (TIA), AND CEREB INFRC W/O RESID DEFICITS Status: Chronic (9) Hypertension Code(s): I10 - ESSENTIAL (PRIMARY) HYPERTENSION Status: Chronic (10) Hyponatremia Code(s): E87.1 - HYPO-OSMOLALITY AND HYPONATREMIA Status: Resolved - Plan continue antibiotics, out of bed/ambulate, DVT proph w/lovenox * . Seizure precautions. Continue Keppra, await neurology consult. Continue antibiotics as below. Monitor vital signs, titrate antihypertensives as needed. Review of Systems - Review of Systems Constitutional: negative: fever, chills, sweats, weakness, malaise Respiratory: negative: Cough, Dry, Shortness of Breath, Hemoptysis, SOB with Excertion, Pleuritic Pain, Sputum, Wheezing Cardiovascular: negative: chest pain, palpitations, orthopnea, paroxysmal nocturnal dyspnea, edema, light headedness Gastrointestinal: negative: Nausea, Vomiting, Abdominal Pain, Diarrhea, Constipation, Melena, Hematochezia Genitourinary: negative: Dysuria, Frequency, Incontinence, Hematuria, Retention - Medications/Allergies Allergies/Adverse Reactions: Allergies Allergy/AdvReac Type Severity Reaction Status Date / Time haloperidol [From Haldol] Allergy Verified 08/04/17 02:22 haloperidol lactate Allergy Verified 08/04/17 02:22 [From Haldol] Medications: Current Medications Acetaminophen (Tylenol) 650 mg PO Q4H PRN PRN Reason: Headache/Fever or Pain Acetaminophen (Tylenol) 650 mg AK Q4H PRN PRN Reason: Headache/Fever or Pain Al Hydroxide/Mg Hydroxide (Maalox) 30 ml PO Q6H PRN PRN Reason: Heartburn or Indigestion Benzonatate (Tessalon) 100 mg PO Q4H PRN PRN Reason: Cough Bisacodyl (Dulcolax) 10 mg PO DAILYPRN PRN PRN Reason: Constipation Bisacodyl (Dulcolax) 10 mg AK Q24H PRN PRN Reason: Constipation Calcium Carbonate (Tums) 1,000 mg PO Q4H PRN PRN Reason: Heartburn or Indigestion Clonidine (Catapres) 0.1 mg PO Q4H PRN PRN Reason: Systolic BP > 160 Enoxaparin Sodium (Lovenox) 40 mg SC 0900 [facility] Last Admin: 11/16/17 10:09 Dose: 40 mg Famotidine (Pepcid) 20 mg SLOW IVP Q12HR [facility] Last Admin: 11/16/17 10:08 Dose: 20 mg Guaifenesin (Robitussin Sf) 200 mg PO Q4H PRN PRN Reason: Cough Hydralazine HCl (Apresoline) 10 mg SLOW IVP Q4H PRN PRN Reason: Systolic BP > 170 Sodium Chloride (Normal Saline 0.9%) 1,000 mls @ 50 mls/hr IV .Q20H [facility] Last Admin: 11/15/17 16:45 Dose: 1,000 mls Levetiracetam 1,000 mg/ Device 100 mls @ 200 mls/hr IVPB BID [facility] Last Admin: 11/16/17 10:14 Dose: 100 mls Vancomycin HCl 1.5 gm/ Sodium (Chloride) 300 mls @ 200 mls/hr IVPB 0300,1500 [facility] Last Admin: 11/16/17 03:39 Dose: 300 mls Piperacillin Sod/Tazobactam (Sod 3.375 gm/ Sodium Chloride) 100 mls @ 200 mls/ hr IVPB 0200,0800,1400,2000 [facility] Last Admin: 11/16/17 09:56 Dose: 100 mls Loratadine (Claritin) 10 mg PO DAILYPRN PRN PRN Reason: Sinus Symptoms Magnesium Hydroxide (Milk Of Magnesium) 30 ml PO DAILYPRN PRN PRN Reason: Constipation Nitroglycerin (Nitrostat) 0.4 mg SL Q5MIN PRN PRN Reason: Chest Pain Ondansetron HCl (Zofran) 4 mg IVP Q6H PRN PRN Reason: Nausea/Vomiting Senna (Senokot) 2 tab PO HSPRN PRN PRN Reason: Constipation Tramadol HCl (Ultram) 50 mg PO Q4H PRN PRN Reason: Moderate Pain (4-6)
[2017-11-16] MEDS: Sodium Chloride 0.9% 1,000 ML IV SCH (14:34)
--- NOTE | 2017-11-16 14:42 | MRI ---
BRAIN MRI WITH AND WITHOUT CONTRAST: HISTORY: Seizure. Meningioma. Expressive aphasia. COMPARISON: 12/22/16. TECHNIQUE: A brain MRI is performed with and without intravenous Gadolinium administration. Multisequential, mu ltiplanar imaging is performed. FINDINGS: No evidence of hemorrhage on the coronal gradient echo sequence. Stable age-appropriate atrophy. Stable chronic small-vessel ischemic change of the white matter. St able malacic and gliotic change involving the left frontal and parietal lobe. The remainder of the left cerebrum demonstrates preservation of cortical alanis-white matter differentiation. Stable vasoge mitra edema involving the right temporal lobe. Central arterial flow voids are maintained. No restric juaquin diffusion. Calvarium has a normal signal intensity. Midline brain parenchymal structures are unremarkable. No evidence of mesial temporal sclerosis. Adequate aeration of the sinuses and mastoid air cells. Minimal mucosal thickening of the ethmoid ai r cells and the right maxillary sinus. Bilateral ocular lens implants are noted. There is no pathologic enhancement of the brain parenchyma. Redemonstration of an extraaxial enhancing focus along the anterior right middle cranial fossa measur ing 1.2 x 2.0 x 1.5 cm. There are dural tails. The lesion is compatible with a meningioma. No elton tional extraaxial findings are appreciated. IMPRESSION: 1. Stable malacic and gliotic changes. 2. Stable vasogenic edema secondary to a stable meningioma in the right middle cranial fossa. POS: [facility]
[2017-11-16] MEDS: Famotidine 20 MG TAB PO SCH (21:02)
--- NOTE | 2017-11-17 00:34 | CON ---
DATE OF CONSULTATION: 11/16/2017 REFERRING PROVIDER: Dr. Fern Hill. REASON FOR CONSULTATION: Recurrent seizures. HISTORY OF PRESENT ILLNESS: Ms. Mitchell is a pleasant 62-year-old - [place] female who has been consulted for evaluation of recurrent seizures. History is obtained from patient's medical record as well as daughter who was present at bedside. Daughter reports that the patient has history of stroke that has resulted in right-sided weakness. She has developed seizures secondary to her stroke. She is currently on Keppra 1000 mg twice daily. She reports that on yesterday, she woke up around 8:00 a.m. and went to check on her mother and noticed at that time that she was unresponsive. Her eyes were deviated toward the left side and she was incoherent and not responding to any verbal stimuli. This lasted for approximately 5 minutes. She immediately called 911 and patient was brought to the [facility]. She notes that her previous episodes of seizures are very similar to what she had this time. Her last episode was on 07/2017. She is currently being managed by her PCP as outpatient for her seizure disorder and has not seen a neurologist for her seizures. PAST MEDICAL HISTORY: Significant for hypertension, history of meningioma, seizure disorder, history of stroke resulting in right hemiparesis, dyslipidemia , and COPD. PAST SURGICAL HISTORY: Significant for appendectomy and bilateral tubal ligation. SOCIAL HISTORY: She used to smoke half pack per day. She does not smoke at this time. There is no history of alcohol use. She does have a history of marijuana use in the past. She currently lives with her daughter. FAMILY HISTORY: None significant. CURRENT MEDICATIONS: Please review MAR. ALLERGIES: Include HALDOL. REVIEW OF SYSTEMS: As mentioned in HPI, otherwise negative. PHYSICAL EXAMINATION: VITAL SIGNS: Blood pressure 155/94, pulse of 78, temperature of 98.5, respirations of 18, O2 sats of 94% on room air. GENERAL: Well-developed, well-nourished -Slov[place] female, in no apparent distress. RESPIRATORY: Clear to auscultation bilaterally. CARDIOVASCULAR: Regular rate and rhythm. NEUROLOGIC: Mental status: The patient is awake and alert, and oriented to person. Speech and language: Aphasia noted. Mild dysarthria noted. Cranial nerves: Pupils are 3 mm and reactive. Visual avila are full to threat. External muscles are intact. Face is symmetric. Motor exam showed spastic right upper and right lower extremity. She has 0/5 strength in the right upper and right lower extremity. Strength in the left upper and left lower extremity is 4/5. Sensory sensation is diminished in both upper and lower extremities. Babinski: Plantar responses extensor on the right and equivocal on the left. LABORATORY DATA: Reviewed, which included CBC, CMP, urinalysis and Keppra level , which is significant for hemoglobin 9.7, hematocrit of 31.4. Urinalysis showed greater than 50 to too numerous to count RBC and WBC, moderate leukocyte esterase. Urine cultures were reviewed, which showed no growth at 24 hours. Blood culture showed no growth. Influenza A and B antigen were reviewed, which were negative. IMAGING STUDIES: MRI brain without contrast was reviewed, which showed no acute intracranial abnormality. IMPRESSION: 1. Complex partial seizure with secondary generalization. 2. Prior history of stroke. 3. Right hemiparesis converted to #2. PLAN: Ms. Mitchell is a pleasant 62-year-old -Slov[place] female with history of stroke and seizure presented with the recurrent episode of seizure. This was in the context of a urinary tract infection that was noted on admission. In my opinion, her recent episode may have been triggered by recent infection. At this time, I would recommend continue current antibiotics for underlying infection. I would recommend continuing her on Keppra 1000 mg b.i.d. that she was taking at home. If patient remains stable without any recurrence of seizure overnight, then the patient is okay to discharge to home from neurological standpoint on tomorrow morning. She will follow up with her primary care physician. If she desire to be seen by neurologist, I will be happy to see her as outpatient in my clinic. Thank you for consultation. JOSE DE JESUS
[2017-11-17 02:14] LABS: #Eosinphils 0.3 thou/uL (0.0-0.7); #Lymphocytes 2.3 thou/uL (1.20-3.40); #Monocytes 0.6 thou/uL (0.11-0.59); #Neutrophils 5.3 thou/uL (1.40-6.50); %Basophils 0.5 % (0.0-1.0); %Eosinophils 3.3 % (0.0-10.0); %Lymphocytes 26.6 % (21.0-51.0); %Monocytes 7.3 % (0.0-10.0); %Neutrophils 62.2 % (42.0-75.0); Hemoglobin 9.6 g/dL (12.0-16.0); Mean Corpuscular HGB CONC 30.4 g/dL (32.0-36.0); Mean Corpuscular Hemoglobin 23.5 pg (27.0-31.0); Mean Corpuscular Volume 77.4 fl (81.0-99.0); Mean Platelet Volume 8.5 fL (7.4-10.4); Platelet Count 344 thou/uL (130-400); RBC Distribution Width 16.9 % (11.5-14.5); Red Blood Cell (RBC) Count 4.08 mill/uL (4.20-5.40); White Blood Cell (WBC) Count 8.6 thou/uL (4.8-10.8)
[2017-11-17 02:27] LABS: Vancomycin, Trough 17.8 ug/mL
[2017-11-17 02:34] LABS: Anion Gap 11 mmol/L (10-20); BUN (Urea Nitrogen) 9 mg/dL (9.8-20.1); Calc. Creatinine Clearance 120 mL/min (70-130); Calcium 8.8 mg/dL (7.8-10.44); Carbon Dioxide 27 mmol/L (23-31); Chloride 103 mmol/L (98-107); Estimated GFR-MDRD 89; Glucose 95 mg/dL (80-115); Potassium 3.4 mmol/L (3.5-5.1); Sodium 138 mmol/L (136-145)
[2017-11-17] MEDS: Piperacillin/Tazobactam 3.375 GM in Sodium Chloride 0.9% 100 ML IVPB SCH ×3 (03:10→13:13)
[2017-11-17] MEDS: Sodium Chloride 0.9% 1,000 ML IV SCH (03:14)
[2017-11-17] MEDS: Vancomycin HCl 1.5 GM in Sodium Chloride 0.9% 250 ML 300 ML IVPB SCH (04:02)
[2017-11-17] MEDS: Famotidine 20 MG TAB PO SCH ×2 (08:23→20:11)
[2017-11-17] MEDS: Enoxaparin Sodium 40 MG/0.4 ML SYRINGE SC SCH (08:23)
[2017-11-17] MEDS: levETIRAcetam In NaCl (Iso-Os) 1,000 MG in Premix Bag 1 BAG IVPB SCH ×2 (09:07→20:12)
--- NOTE | 2017-11-17 13:22 | PDOC.PN ---
- Subjective Encounter Start Date: 11/17/17 Encounter Start Time: 07:40 Pt seen for followup re: UTI. Denies chest pain, shortness of breath, fevers or chills. - Objective MAR Reviewed: Yes Vital Signs & Weight: Vital Signs (12 hours) Temp Pulse Pulse Resp BP BP Pulse Ox 11/17/17 12:21 98.1 F 80 18 152/98 H 92 L 11/17/17 08:31 100 158/93 H 11/17/17 08:00 98.5 F 90 20 164/99 H 94 L 11/17/17 03:45 98.1 F 81 16 146/97 H 96 Weight Weight 233 lb 9 oz I&O: 11/16/17 11/17/17 11/18/17 06:59 06:59 06:59 Intake Total 344 1884 480 Balance 344 1884 480 Result Diagrams: 11/17/17 02:01 11/17/17 02:01 EKG Reviewed by me: Yes (Tele: NSR) Phys Exam - Physical Examination Obese HEENT: PERRLA, moist MMs, sclera anicteric, oral pharynx no lesions Neck: no nodes, no JVD, supple, full ROM Respiratory: no wheezing, no rales, no rhonchi, clear to auscultation bilateral Cardiovascular: RRR, no rub Gastrointestinal: soft, non-tender, no distention, positive bowel sounds Musculoskeletal: pulses present Neurological: moves all 4 limbs Psychiatric: normal affect Dx/Plan (1) UTI (urinary tract infection) Status: Acute Comment: Final urine culture negative, preliminary blood cultures are negative. Discontinue antibiotics and observe. (2) Seizure Code(s): R56.9 - UNSPECIFIED CONVULSIONS Status: Acute Comment: No recurrence, continue keppra (3) Acute encephalopathy Code(s): G93.40 - ENCEPHALOPATHY, UNSPECIFIED Status: Acute Comment: Improving (4) Anxiety and depression Code(s): F41.8 - OTHER SPECIFIED ANXIETY DISORDERS Status: Chronic (5) Dyslipidemia Code(s): E78.5 - HYPERLIPIDEMIA, UNSPECIFIED Status: Chronic (6) GERD (gastroesophageal reflux disease) Code(s): K21.9 - GASTRO-ESOPHAGEAL REFLUX DISEASE WITHOUT ESOPHAGITIS Status: Chronic (7) H/O: CVA (cerebrovascular accident) Code(s): Z86.73 - PRSNL HX OF TIA (TIA), AND CEREB INFRC W/O RESID DEFICITS Status: Chronic (8) Hypertension Code(s): I10 - ESSENTIAL (PRIMARY) HYPERTENSION Status: Chronic Comment: Monitor vital signs, titrate antihypertensives as needed. (9) Hyponatremia Code(s): E87.1 - HYPO-OSMOLALITY AND HYPONATREMIA Status: Resolved (10) Sepsis Code(s): A41.9 - SEPSIS, UNSPECIFIED ORGANISM Status: Resolved - Plan out of bed/ambulate * . Likely home 24-48 hrs. Review of Systems - Review of Systems Respiratory: negative: Cough, Dry, Shortness of Breath, Hemoptysis, SOB with Excertion, Pleuritic Pain, Sputum, Wheezing Cardiovascular: negative: chest pain, palpitations, orthopnea, paroxysmal nocturnal dyspnea, edema, light headedness, other Gastrointestinal: negative: Nausea, Vomiting, Abdominal Pain, Diarrhea, Constipation, Melena, Hematochezia Genitourinary: negative: Dysuria, Frequency, Incontinence, Hematuria, Retention Skin: negative: Rash, Lesions, Bravo, Bruising - Medications/Allergies Allergies/Adverse Reactions: Allergies Allergy/AdvReac Type Severity Reaction Status Date / Time haloperidol [From Haldol] Allergy Verified 08/04/17 02:22 haloperidol lactate Allergy Verified 08/04/17 02:22 [From Haldol] Medications: Current Medications Acetaminophen (Tylenol) 650 mg PO Q4H PRN PRN Reason: Headache/Fever or Pain Acetaminophen (Tylenol) 650 mg CA Q4H PRN PRN Reason: Headache/Fever or Pain Al Hydroxide/Mg Hydroxide (Maalox) 30 ml PO Q6H PRN PRN Reason: Heartburn or Indigestion Benzonatate (Tessalon) 100 mg PO Q4H PRN PRN Reason: Cough Bisacodyl (Dulcolax) 10 mg PO DAILYPRN PRN PRN Reason: Constipation Bisacodyl (Dulcolax) 10 mg CA Q24H PRN PRN Reason: Constipation Calcium Carbonate (Tums) 1,000 mg PO Q4H PRN PRN Reason: Heartburn or Indigestion Clonidine (Catapres) 0.1 mg PO Q4H PRN PRN Reason: Systolic BP > 160 Enoxaparin Sodium (Lovenox) 40 mg SC 0900 URI Last Admin: 11/17/17 08:23 Dose: 40 mg Famotidine (Pepcid) 20 mg PO Q12HR [facility] Last Admin: 11/17/17 08:23 Dose: 20 mg Guaifenesin (Robitussin Sf) 200 mg PO Q4H PRN PRN Reason: Cough Hydralazine HCl (Apresoline) 10 mg SLOW IVP Q4H PRN PRN Reason: Systolic BP > 170 Sodium Chloride (Normal Saline 0.9%) 1,000 mls @ 50 mls/hr IV .Q20H [facility] Last Admin: 11/17/17 03:14 Dose: 1,000 mls Levetiracetam 1,000 mg/ Device 100 mls @ 200 mls/hr IVPB BID [facility] Last Admin: 11/17/17 09:07 Dose: 100 mls Vancomycin HCl 1.5 gm/ Sodium (Chloride) 300 mls @ 200 mls/hr IVPB 0300,1500 [facility] Last Admin: 11/17/17 04:02 Dose: 300 mls Piperacillin Sod/Tazobactam (Sod 3.375 gm/ Sodium Chloride) 100 mls @ 200 mls/ hr IVPB 0200,0800,1400,2000 [facility] Last Admin: 11/17/17 13:13 Dose: 100 mls Loratadine (Claritin) 10 mg PO DAILYPRN PRN PRN Reason: Sinus Symptoms Magnesium Hydroxide (Milk Of Magnesium) 30 ml PO DAILYPRN PRN PRN Reason: Constipation Nitroglycerin (Nitrostat) 0.4 mg SL Q5MIN PRN PRN Reason: Chest Pain Ondansetron HCl (Zofran) 4 mg IVP Q6H PRN PRN Reason: Nausea/Vomiting Potassium Chloride (K-Dur) 40 meq PO ONE [facility] Senna (Senokot) 2 tab PO HSPRN PRN PRN Reason: Constipation Tramadol HCl (Ultram) 50 mg PO Q4H PRN PRN Reason: Moderate Pain (4-6)
[2017-11-17] MEDS ORDERED: Potassium Chloride 20 MEQ TAB PO SCH (13:30)
[2017-11-18] MEDS: Sodium Chloride 0.9% 1,000 ML IV SCH (00:04)
[2017-11-18 05:24] LABS: #Eosinphils 0.3 thou/uL (0.0-0.7); #Lymphocytes 2.2 thou/uL (1.20-3.40); #Monocytes 0.5 thou/uL (0.11-0.59); %Basophils 0.5 % (0.0-1.0); %Eosinophils 3.3 % (0.0-10.0); %Lymphocytes 27.5 % (21.0-51.0); %Monocytes 6.7 % (0.0-10.0); Hemoglobin 9.4 g/dL (12.0-16.0); Mean Corpuscular HGB CONC 30.7 g/dL (32.0-36.0); Mean Corpuscular Hemoglobin 23.4 pg (27.0-31.0); Mean Corpuscular Volume 76.2 fl (81.0-99.0); Mean Platelet Volume 8.3 fL (7.4-10.4); Platelet Count 321 thou/uL (130-400); RBC Distribution Width 17.2 % (11.5-14.5); Red Blood Cell (RBC) Count 4.02 mill/uL (4.20-5.40); White Blood Cell (WBC) Count 8.1 thou/uL (4.8-10.8)
[2017-11-18 05:34] LABS: Anion Gap 10 mmol/L (10-20); BUN (Urea Nitrogen) 7 mg/dL (9.8-20.1); Calc. Creatinine Clearance 126 mL/min (70-130); Calcium 8.8 mg/dL (7.8-10.44); Carbon Dioxide 26 mmol/L (23-31); Chloride 106 mmol/L (98-107); Estimated GFR-MDRD Greater than 90; Glucose 99 mg/dL (80-115); Potassium 3.9 mmol/L (3.5-5.1); Sodium 138 mmol/L (136-145)
[2017-11-18 08:51] VITALS: TEMP 98
[2017-11-18] MEDS: Famotidine 20 MG TAB PO SCH (09:29)
[2017-11-18] MEDS: levETIRAcetam In NaCl (Iso-Os) 1,000 MG in Premix Bag 1 BAG IVPB SCH (09:30)
[2017-11-18] MEDS: Enoxaparin Sodium 40 MG/0.4 ML SYRINGE SC SCH (09:30)
[2017-11-18 11:43] VITALS: BP 148/98
--- NOTE | 2017-11-18 19:17 | DIS ---
PRIMARY CARE PHYSICIAN: Cale Cross MD DATE OF ADMISSION: 11/15/2017 DATE OF DISCHARGE: 11/18/2017 DISCHARGE DIAGNOSES: 1. Seizure. 2. Sepsis, source unknown. CONDITION OF PATIENT ON THE DAY OF DISCHARGE: Stable. I assessed Ms. Mitchell on the day of discharge . She denies any chest pain or shortness of breath. Vital signs are stable. S1 and S2 are heard, r egular. Lungs are clear to auscultation bilaterally. HOSPITAL COURSE: Ms. Mitchell is a pleasant 62-year-old lady, who was admitted to [facility] on 11/15/2017 for seizures. She also presented consistent with a diagnosis of sepsis. Her urinalysis was suggestive of urinary tract infection. She was treated with intravenous antibiot ics. Final urine cultures are negative. Preliminary blood cultures are negative as well. Her antib iotics were discontinued on 11/16/2017. She is advised to follow up with her primary care physician for final culture reports. She was seen by Neurology Service. Her Keppra was continued. MRI of the brain on 11/16/2017 showed stable malacic and gliotic changes as well as stable vasogenic edema secondary to a stable meningioma in the right middle cranial fossa. She did not have recurrence of the seizure. She is being discha rged home in a stable condition. DISCHARGE MEDICATIONS: Include Aggrenox 1 capsule 2 times a day, citalopram 40 mg daily, esomeprazol e 20 mg daily, Keppra 1000 mg 2 times a day, lisinopril 20 mg 2 times a day, and Pravastatin 40 mg at bedtime. CONSULTATIONS DURING THIS HOSPITALIZATION: Neurology, Dr. Noemy Leyva. Many thanks for allowing me to participate in your patient's care. Please feel free to contact me wi th any questions or concerns. On the day of discharge, she has a white count of 8100, hemoglobin 9.4, platelet count 321, normal so dium, normal potassium, and normal creatinine. DISCHARGE DESTINATION: Home. TOTAL AMOUNT OF TIME SPENT COORDINATING THIS DISCHARGE: 33 minutes.
--- NOTE | 2017-11-26 14:23 | EKG ---
Test Reason : Blood Pressure : / mmHG Vent. Rate : 098 BPM Atrial Rate : 098 BPM P-R Int : 182 ms QRS Dur : 076 ms QT Int : 362 ms P-R-T Axes : 042 000 035 degrees QTc Int : 462 ms Normal sinus rhythm Possible Left atrial enlargement Borderline ECG Confirmed by KASSANDRA Tabares, LARRY ([id number]), story editor GEORGE VALENCIA ([id number]) on 11/26/2017 2:21:41 PM Referred By: Confirmed By:LARRY CANNON M.D.
== END 2017-11-18 13:30 | disposition home or self-care (01) | DRG 871 ==
LOC: ERS 08:57 → ERHOLD 12:44 → 2SE 15:38
PROVIDERS: ADMIT Internal Medicine; ATTEND Internal Medicine
DX: A41.9 Sepsis, unspecified organism (principal); G93.40 Encephalopathy, unspecified; G93.6 Cerebral edema; E87.1 Hypo-osmolality and hyponatremia; I69.351 Hemiplegia and hemiparesis following cerebral infarction affecting right dominant side; G40.209 Localization-related (focal) (partial) symptomatic epilepsy and epileptic syndromes with complex partial seizures, not intractable, without status epilepticus; F41.9 Anxiety disorder, unspecified; F32.9 Major depressive disorder, single episode, unspecified; E78.5 Hyperlipidemia, unspecified; K21.9 Gastro-esophageal reflux disease without esophagitis; I10 Essential (primary) hypertension; F12.21 Cannabis dependence, in remission; F14.21 Cocaine dependence, in remission; F17.210 Nicotine dependence, cigarettes, uncomplicated; D32.0 Benign neoplasm of cerebral meninges; J44.9 Chronic obstructive pulmonary disease, unspecified
CPT/HCPCS: 36415; 51701; 70450; 70553; 71045; 80048; 80053; 80177; 80202; 81003; 81015; 82553; 83605; 83690; 83735; 83880; 84484; 85025; 85610; 87040; 87086; 87804; 93005; 96361; 96365; 96367; 96368; A4353; G8978-GP-CL; G8979-GP-CJ; G8987-GO-CK; G8988-GO-CJ; G9162-GN-CK; G9163-GN-CJ; J0696; J1650; J1953; J2543; J3370; J7050; S0028

== ENCOUNTER 2018-01-15 08:12 | Emergency (ER) | payer SELFPAY ==
[2018-01-15 09:03] LABS: INR-International Normal Ratio 1.1; PTT 28.2 SEC (22.9-36.1); Prothrombin Time 14.2 SEC (12.0-14.7)
[2018-01-15 09:06] LABS: #Eosinphils 0.2 thou/uL (0.0-0.7); #Lymphocytes 1.7 thou/uL (1.20-3.40); #Monocytes 0.3 thou/uL (0.11-0.59); #Neutrophils 4.1 thou/uL (1.40-6.50); %Basophils 0.6 % (0.0-1.0); %Eosinophils 2.5 % (0.0-10.0); %Lymphocytes 26.5 % (21.0-51.0); %Monocytes 5.1 % (0.0-10.0); %Neutrophils 65.4 % (42.0-75.0); Hemoglobin 9.5 g/dL (12.0-16.0); Mean Corpuscular HGB CONC 29.8 g/dL (32.0-36.0); Mean Corpuscular Hemoglobin 22.4 pg (27.0-31.0); Mean Corpuscular Volume 75.3 fl (81.0-99.0); Platelet Count 393 thou/uL (130-400); RBC Distribution Width 17.8 % (11.5-14.5); Red Blood Cell (RBC) Count 4.21 mill/uL (4.20-5.40); White Blood Cell (WBC) Count 6.3 thou/uL (4.8-10.8)
[2018-01-15 09:10] LABS: MDiff Complete? YES
[2018-01-15 09:18] LABS: ALT (SGPT) Less than 7 U/L (8-55); AST (SGOT) 12 U/L (5-34); Albumin 3.6 g/dL (3.4-4.8); Alkaline Phosphatase 74 U/L (40-150); Anion Gap 9 mmol/L (10-20); BUN (Urea Nitrogen) 9 mg/dL (9.8-20.1); Bilirubin, Total 0.2 mg/dL (0.2-1.2); Calc. Creatinine Clearance 0 mL/min (70-130); Calcium 8.4 mg/dL (7.8-10.44); Carbon Dioxide 28 mmol/L (23-31); Chloride 103 mmol/L (98-107); Estimated GFR-MDRD 81; Globulin 3.8 g/dL (2.4-3.5); Glucose 245 mg/dL (80-115); Potassium 3.5 mmol/L (3.5-5.1); Protein, Total 7.4 g/dL (6.0-8.3); Sodium 136 mmol/L (136-145)
[2018-01-15 09:45] LABS: Bilirubin Negative (Negative); Blood, Urine Large (Negative); Clarity CLEAR (Clear); Glucose, Urine (Dipstick) 250 mg/dL (Negative); Leukocyte Moderate (Negative); Nitrite Negative (Negative); Protein, Urine (Dipstick) Negative (Neg-Trace); Specific Gravity, Urine 1.016 (1.002-1.036); Urobilinogen 0.2 mg/dL (0.2-1.0); pH, Urine 5.5 (5.0-9.0)
[2018-01-15 09:48] LABS: Bacteria/HPF None Seen HPF (None Seen); Pathc Cast-AUWi Flag 1.16 (0-2.49)
[2018-01-15 09:58] LABS: Hyaline Casts/LPF 0-3 HYALINE CAST LPF (0-3 Hyaline); Renal Epithelial None Seen HPF (0-3); Transitional Epithelial 0-3 HPF (0-3); Trichomonas/HPF 1+ HPF (None Seen)
--- NOTE | 2018-01-15 11:50 | ULT ---
PELVIC SONOGRAM TRANSABDOMINAL AND TRANSVAGINAL IMAGING: Date: 01/15/18 HISTORY: Pelvic pain and bleeding. FINDINGS: Urinary bladder is incompletely distended. The uterus is enlarged and has a very heterogeneous echote xture. It is 7.7 cm length. Multiple lobulated hypoechoic lesions and scattered areas of calcificatio ns are apparent and obscure the endometrium. No significant free fluid. Neither ovary is visualized with transabdominal or transvaginal imaging. IMPRESSION: Prominent fibroid involvement of the uterus. POS: [facility]
== END 2018-01-15 12:04 | disposition home or self-care (01) ==
LOC: ERS 08:12
DX: N93.9 Abnormal uterine and vaginal bleeding, unspecified (principal); D64.9 Anemia, unspecified; D25.9 Leiomyoma of uterus, unspecified; Z86.73 Personal history of transient ischemic attack (TIA), and cerebral infarction without residual deficits; G40.909 Epilepsy, unspecified, not intractable, without status epilepticus; I10 Essential (primary) hypertension; F20.9 Schizophrenia, unspecified; F31.9 Bipolar disorder, unspecified; F17.210 Nicotine dependence, cigarettes, uncomplicated
CPT/HCPCS: 51701; 76856; 80053; 81003; 81015; 85025; 85610; 85730; 87086; A4353

== ENCOUNTER 2018-06-25 14:37 | Emergency (ER) | payer SELFPAY ==
[2018-06-25] MEDS ORDERED: ISOVUE-370 76%-LOCM 1 ML ONE (15:17)
[2018-06-25 15:32] LABS: Clarity Hazy (Clear); Glucose, Urine (Dipstick) Negative (Negative); Leukocyte Negative (Negative); Nitrite Negative (Negative); Protein, Urine (Dipstick) Trace mg/dL (Neg-Trace); Urobilinogen 0.2 mg/dL (0.2-1.0)
[2018-06-25 15:33] LABS: Bacteria/HPF None Seen HPF (None Seen); Bilirubin Negative (Negative); Blood, Urine Trace (Negative); Hyaline Casts/LPF 0-3 HYALINE CAST LPF (0-3 Hyaline); RBC/HPF 0-3 HPF (0-3); Squamous Epithelial 0-3 HPF (0-3); WBC/HPF 0-3 HPF (0-3)
[2018-06-25 15:35] LABS: #Basophils 0.1 thou/uL (0.0-0.2); #Eosinphils 0.1 thou/uL (0.0-0.7); #Lymphocytes 2.2 thou/uL (1.20-3.40); #Monocytes 0.5 thou/uL (0.11-0.59); #Neutrophils 5.6 thou/uL (1.40-6.50); %Basophils 0.8 % (0.0-1.0); %Eosinophils 1.4 % (0.0-10.0); %Lymphocytes 25.9 % (21.0-51.0); %Monocytes 6.3 % (0.0-10.0); %Neutrophils 65.5 % (42.0-75.0); Hemoglobin 13.2 g/dL (12.0-16.0); Mean Corpuscular HGB CONC 30.4 g/dL (32.0-36.0); Mean Corpuscular Volume 85.5 fL (78.0-98.0); Platelet Count 394 thou/uL (130-400); RBC Distribution Width 14.7 % (11.5-14.5); Red Blood Cell (RBC) Count 5.07 mill/uL (4.20-5.40); White Blood Cell (WBC) Count 8.5 thou/uL (4.8-10.8)
[2018-06-25 15:50] LABS: ALT (SGPT) 8 U/L (8-55); AST (SGOT) 13 U/L (5-34); Alkaline Phosphatase 72 U/L (40-150); Anion Gap 12 mmol/L (10-20); BUN (Urea Nitrogen) 12 mg/dL (9.8-20.1); Bilirubin, Total 0.4 mg/dL (0.2-1.2); Calc. Creatinine Clearance 0 mL/min (70-130); Calcium 9.7 mg/dL (7.8-10.44); Carbon Dioxide 28 mmol/L (23-31); Chloride 103 mmol/L (98-107); Estimated GFR-MDRD 85; Globulin 3.9 g/dL (2.4-3.5); Glucose 96 mg/dL (80-115); Potassium 3.5 mmol/L (3.5-5.1); Protein, Total 7.9 g/dL (6.0-8.3); Sodium 139 mmol/L (136-145)
[2018-06-25 16:04] LABS: CK (CPK) 79 U/L (29-168); Lipase 13 U/L (8-78)
--- NOTE | 2018-06-25 16:07 | RAD ---
FRONTAL VIEW CHEST: Comparison: 11-15-17 Indication: Pain. FINDINGS: There is prominent right perihilar patchy opacification. Cardiac silhouette is prominent. No effusion or discrete pneumothorax. There is vascular calcification and osseous degenerative changes. IMPRESSION: Patchy right perihilar opacity which is somewhat asymmetric in appearance. This could relate to asymm etric edema or perihilar pneumonia. The possibility of underlying adenopathy or mass is not excluded. Recommend continued follow up. Code T POS: [facility]
[2018-06-25 16:09] LABS: CKMB 0.8 ng/mL (0-6.6); Troponin I Less than 0.010 ng/mL (< 0.028)
[2018-06-25] MEDS ORDERED: Acetaminophen 500 MG TAB ONE (16:12)
--- NOTE | 2018-06-25 18:20 | CT ---
CT OF BRAIN PERFORMED WITHOUT CONTRAST ENHANCEMENT: History: Headache, blurred vision. History of CVA. History of meningioma. Comparison: 10-19-17 MRI, 11-15-17 CT FINDINGS: There is stable encephalomalacia changes of the left frontal lobe. Calcified density compatible with an area of meningioma is seen in the right middle cranial fossa. There is white matter edema change a gain noted which appears stable. No hemorrhage or acute findings seen. IMPRESSION: No acute intracranial abnormalities, stable examination. Calcified right middle cranial fossa meningi andriy and what appears to be associated vasogenic edema is seen. Encephalomalacia changes over the left frontal lobe are also stable. POS: [facility]
--- NOTE | 2018-06-25 18:50 | CT ---
CT OF ABDOMEN AND PELVIS PERFORMED WITH INTRAVENOUS CONTRAST ENHANCEMENT: History: Intermittent left lower quadrant pain. FINDINGS: The lung bases show some segmental atelectasis in the left base. There is a stable appearance to the cystic appearing 1.8 cm structure which is anterior to the heart, probably some type of pericardial cyst. It is unchanged since 08-04-17 study. The liver and spleen are normal in appearance. The pancreas shows no evidence of mass. Gallbladder is slightly contracted. There appears to be a small stone within the gallbladder neck. Right and left adrenal glands and right and left kidneys are normal in size. Hypodensity involving th e parapelvic region of the left kidney is most compatible with a cyst. There is no significant periaortic or mesenteric lymphadenopathy. Colonic diverticulosis is present. CT OF PELVIS PERFORMED WITH CONTRAST ENHANCEMENT: There is a large fibromatous appearing uterus, one of the fibroids is partially calcified. The larges t fibroid is in the 5 cm range. No free fluid. Fat containing left inguinal hernia is incidentally no juaquin. There are what appear to be appendectomy changes. Review of osseous structures show no osteolytic or blastic bony changes. IMPRESSION: 1. Enlarged fibromas appearing uterus. 2. Colonic diverticulosis. 3. Probable small gallstone. 4. Stable paracardial cysts. POS: [facility]
== END 2018-06-25 18:52 | disposition home or self-care (01) ==
LOC: ERS 14:37
DX: K57.30 Diverticulosis of large intestine without perforation or abscess without bleeding (principal); D25.9 Leiomyoma of uterus, unspecified; Z86.73 Personal history of transient ischemic attack (TIA), and cerebral infarction without residual deficits; I10 Essential (primary) hypertension; F20.9 Schizophrenia, unspecified; F31.9 Bipolar disorder, unspecified; F17.210 Nicotine dependence, cigarettes, uncomplicated; Z79.899 Other long term (current) drug therapy
CPT/HCPCS: 36415; 70450; 71045; 74177; 80053; 81003; 81015; 82553; 83690; 83880; 84484; 85025; 93005

== ENCOUNTER 2018-07-14 21:49 | Inpatient (IN) | payer SELFPAY ==
[~2018-07-14 21:49] MED LIST: ISOVUE-370 76%-LOCM 1 ML ONE
[2018-07-14 22:31] LABS: #Basophils 0.1 thou/uL (0.0-0.2); #Eosinphils 0.2 thou/uL (0.0-0.7); #Lymphocytes 2.4 thou/uL (1.20-3.40); #Monocytes 0.8 thou/uL (0.11-0.59); #Neutrophils 6.2 thou/uL (1.40-6.50); %Basophils 1.1 % (0.0-1.0); %Eosinophils 1.9 % (0.0-10.0); %Lymphocytes 24.9 % (21.0-51.0); %Monocytes 8.1 % (0.0-10.0); Hemoglobin 12.6 g/dL (12.0-16.0); Mean Corpuscular HGB CONC 31.2 g/dL (32.0-36.0); Mean Corpuscular Hemoglobin 27.3 pg (27.0-31.0); Mean Corpuscular Volume 87.6 fL (78.0-98.0); Mean Platelet Volume 8.8 fL (7.4-10.4); Platelet Count 276 thou/uL (130-400); Red Blood Cell (RBC) Count 4.62 mill/uL (4.20-5.40); White Blood Cell (WBC) Count 9.7 thou/uL (4.8-10.8)
[2018-07-14 22:35] LABS: INR-International Normal Ratio 1.1; PTT 27.7 SEC (22.9-36.1); Prothrombin Time 13.9 SEC (12.0-14.7)
--- NOTE | 2018-07-14 22:35 | CT ---
CT BRAIN 07/14/18 HISTORY: Stroke. Possible seizure. Paralyzed right side. Noncontrast enhanced CT images of the brain is obtained on 07/14/18. Comparison made to previous exam from 06/15/18. Noncontrast enhanced CT images of the brain is obtained. There are areas of encephalomalacia in the left frontal lobe with adjacent areas of gliosis, unchange d since the previous comparison CT. There is also some gliotic changes seen in the right temporal lob e also unchanged since the previous exam. No evidence of acute intracranial hemorrhages seen. There is an area of hyperdensity seen in the medi al aspect of the right middle cranial fossa compatible with a previous meningioma. This is not signi ficantly changed since the previous comparison MRI from December 2016. IMPRESSION: No evidence of acute intracranial pathology seen. POS: [facility]
[2018-07-14] MEDS ORDERED: Lorazepam 2 MG/ML VIAL ONE (22:38)
[2018-07-14 22:41] LABS: ALT (SGPT) Less than 7 U/L (8-55); AST (SGOT) 14 U/L (5-34); Albumin 3.6 g/dL (3.4-4.8); Alkaline Phosphatase 54 U/L (40-150); Anion Gap 12 mmol/L (10-20); BUN (Urea Nitrogen) 13 mg/dL (9.8-20.1); Bilirubin, Total Less than 0.2 mg/dL (0.2-1.2); CK (CPK) 103 U/L (29-168); Calc. Creatinine Clearance 0 mL/min (70-130); Calcium 8.9 mg/dL (7.8-10.44); Carbon Dioxide 24 mmol/L (23-31); Chloride 104 mmol/L (98-107); Estimated GFR-MDRD 84; Globulin 3.7 g/dL (2.4-3.5); Glucose 119 mg/dL (80-115); Potassium 3.4 mmol/L (3.5-5.1); Protein, Total 7.3 g/dL (6.0-8.3); Sodium 137 mmol/L (136-145)
[2018-07-14 22:46] LABS: Troponin I Less than 0.010 ng/mL (< 0.028)
[2018-07-14] MEDS ORDERED: levETIRAcetam 500 MG/100 ML PREMIX BAG ONE (22:53)
--- NOTE | 2018-07-14 22:57 | CT ---
CONTRAST ENHANCED CTA NECK AND INTRACRANIAL CTA: 07/14/18 HISTORY: Stroke. Contrast enhanced CTA is performed with 2D and 3D reconstructed images performed. CTA images demonstrate A right middle cranial fossa meningioma with calcification and enhancement. No evidence of occlusive stenosis seen in the ESTUARDO, MCA and COLD [employer]ESS [employer]PERATOR vessels. There is bilateral origin ICA calcified and noncalcified plaques resulting in approximately 30% right and left ICA origin stenosis. The common carotid arteries are patent. Calcifications seen in the aor ta. The right subclavian artery is difficult to visualize due to adjacent venous marked contrast and beam hardening. The left subclavian artery is patent. The right left vertebral artery is dominant. Jose L th vertebral arteries are patent. IMPRESSION: No evidence of significant intracranial stenosis. Bilateral proximal ICA and some moderate left verte bral artery calcification is seen. The right vertebral artery appears to end in PICA. Findings called to Dr. Paris at 10:33 p.m. on 07/14/18. Code CR POS: [facility]
[2018-07-15] MEDS ORDERED: Lorazepam 2 MG/ML VIAL SLOW IVP PRN (00:56)
[2018-07-15 04:48] VITALS: BMI 31.9
[2018-07-15] MEDS ORDERED: HYDROcodone/Acetaminophen 5/325 mg Tablet PO PRN (07:20)
[2018-07-15] MEDS ORDERED: Ondansetron PF 4 MG/2 ML Vial IVP PRN (07:20)
[2018-07-15] MEDS ORDERED: Acetaminophen 325 MG TAB PO PRN (07:20)
[2018-07-15] MEDS ORDERED: Calcium Carbonate 500 MG ChewTAB PO PRN (07:20)
[2018-07-15] MEDS ORDERED: Senokot S 8.6-50 MG TAB PO PRN (07:20)
[2018-07-15] MEDS ORDERED: Loperamide HCl 2 MG CAP PO PRN (07:20)
[2018-07-15] MEDS ORDERED: Bisacodyl 5 MG TAB PO PRN (07:20)
[2018-07-15] MEDS ORDERED: Bisacodyl 10 MG SUPP PR PRN (07:20)
[2018-07-15] MEDS ORDERED: Ondansetron ODT 4 MG TAB PO PRN (07:20)
[2018-07-15] MEDS ORDERED: Loratadine 10 MG TAB PO PRN (07:22)
[2018-07-15] MEDS ORDERED: Artificial Tears 18 DROP/0.9 ML EA EYE PRN (07:22)
[2018-07-15] MEDS ORDERED: Sodium Chloride 0.65% Nasal 44 ML BOT EA NARE PRN (07:22)
[2018-07-15] MEDS ORDERED: Eucerin (Mineral Oil/Petrolatum,White) 30 gm Jar TOP PRN (07:22)
[2018-07-15] MEDS ORDERED: Diabetic Tussin 200 MG/10 ML UDCUP PO PRN (07:22)
[2018-07-15] MEDS ORDERED: Cepastat Lozenges 1 LOZ PO PRN (07:22)
[2018-07-15] MEDS ORDERED: hydrALAZINE 20 MG/ML VIAL SLOW IVP PRN (07:22)
[2018-07-15] MEDS ORDERED: levETIRAcetam 500 MG TAB PO SCH (09:00)
[2018-07-15] MEDS: Aggrenox 200-25mg CAP PO SCH ×2 (10:33→19:46)
[2018-07-15] MEDS: Lisinopril/Hydrochlorothiazide 20/25 mg Tablet PO SCH ×2 (10:34→19:46)
[2018-07-15] MEDS: Citalopram 20 MG TAB PO SCH (10:34)
[2018-07-15] MEDS: Enoxaparin Sodium 40 MG/0.4 ML SYRINGE SC SCH (10:35)
[2018-07-15] MEDS: Famotidine 20 MG TAB PO SCH ×2 (10:35→19:47)
[2018-07-15] MEDS ORDERED: Potassium Chloride 20 MEQ TAB PO SCH (11:00)
--- NOTE | 2018-07-15 11:25 | HP ---
DATE OF ADMISSION: 07/15/2018 PRIMARY CARE PHYSICIAN: Dr. Blanca Rose. REASON FOR ADMISSION: Stroke versus seizure. HISTORY OF PRESENT ILLNESS: A 62-year-old -[place] female who has previous stroke and she majano s seizure disorder. She has chronic right upper and lower extremity weakness. Last night, the patie nt was trying to call her son. At that time, the patient was having difficulty coming out with the w ord. The patient was worried about seizure because she had similar problem in past with a seizure an d that is why he called paramedics. When paramedics saw her at that time, she was only having aphasi a. She already had weakness from right upper and lower extremity weakness from previous stroke, whic h was unchanged. She did not have any left-sided weakness. Shee was not complaining of any headache and she did not have any generalized tonic clonic seizure. She was able to respond at the scene. Lobo whiting was brought to ER for stroke workup. Initially in the emergency room, CT brain was negative w ithout any new finding. CT [place] angiography was also negative for any stenosis. The patient was hemodynamically stable. Subsequently, this patient was already admitted to stroke as a full admission by ER physician. When I saw this patient this morning, she was able to talk. She does have residual weakness on the r ight upper and lower extremity weakness. She was asking for food because she was kept n.p.o. She de nies any fever or chills. She denies any UTI symptoms. She did not have any seizure while in the [facility]. The patient is also not sure about any generalized tonic-clonic activity at home. At this point, the patient does not have any family member with her. REVIEW OF SYSTEMS: The following complete review of systems was negative, unless otherwise mentioned in the HPI or below: Constitutional: Weight loss or gain, ability to conduct usual activities. Sk in: Rash, itching. Eyes: Double vision, pain. ENT/Mouth: Nose bleeding, neck stiffness, pain, te nderness. Cardiovascular: Palpitations, dyspnea on exertion, orthopnea. Respiratory: Shortness of breath, wheezing, cough, hemoptysis, fever or night sweats. Gastrointestinal: Poor appetite, abdom inal pain, heartburn, nausea, vomiting, constipation, or diarrhea. Genitourinary: Urgency, frequenc y, dysuria, nocturia. Musculoskeletal: Pain, swelling. Neurologic/Psychiatric: Anxiety, depressio n. Allergy/Immunologic: Skin rash, bleeding tendency. Please see my HPI for pertinent positive and negative. All other review of systems reviewed and nega tive except as mentioned in the HPI. PAST MEDICAL HISTORY: History of cerebrovascular accident with residual right upper and lower extrem ity weakness post-CVA seizure disorder, chronic meningioma, hypertension, dyslipidemia, chronic obstr uctive pulmonary disease, gastroesophageal reflux disease. PAST SURGICAL HISTORY: Appendicectomy, bilateral tubal ligation. PAST PSYCHIATRIC HISTORY: Anxiety and depression. ALLERGIES: HALDOL. SOCIAL HISTORY: Patient has remote history of smoking. She quit smoking since a stroke diagnosis. She denies any alcohol abuse. She denies any other illicit drug abuse. She has a remote history of cannabis abuse. She currently lives at home with family. FAMILY HISTORY: The patient's mother of gunshot wound in her 60s. Father diseased as well. CURRENT HOME MEDICATIONS: Aggrenox 1 capsule p.o. b.i.d., Celexa 40 mg p.o. daily, Nexium 20 mg p.o. daily, Keppra 1000 mg p.o. b.i.d., Prinzide 20/25 one tablet b.i.d., pravastatin 40 mg p.o. at [facility]. PHYSICAL EXAMINATION: VITAL SIGNS: On arrival to the emergency room, blood pressure 138/94, pulse of 108, respiratory rate 22, temperature 99.8, saturation 94% on 2 liter oxygen, weight 96 pounds. GENERAL: The patient is currently alert, awake, follows command. No obvious acute distress. HEAD: Normocephalic, atraumatic. EYES: Pupils round, reactive to light. Extraocular muscle intact. ENT: Oropharynx within normal limits. Moist mucous membranes. No oral lesion, no pharyngeal erythe ma, no exudate. NECK: Supple, no JVD, no thyromegaly, no carotid bruit. LUNGS: Clear to auscultation without any rhonchi or rales. CARDIAC: S1, S2 regular. No murmur, no gallop, no rub. ABDOMEN: Soft, bowel sounds present, nontender, nondistended. No organomegaly, no mass, no suprapub ic tenderness. BACK: Unremarkable, no CVA tenderness. EXTREMITIES: Upper extremity: Passive movements of all joints are normal. Lower extremity: Passiv e movements of all joints are normal. Good distal pulsation. SKIN: No skin rash. HEMATOLOGICAL: No lymphadenopathy. PSYCHIATRIC: Normal affect. NEUROLOGIC: Patient is currently alert and oriented. Follows command. She does have residual weakn ess in the right upper and lower extremity with power 2-3/5 left-sided within normal limits. Reflexe s slightly exaggerated on the right side. Plantar extensor on the right side. Sensation intact. EMERGENCY ROOM COURSE: Patient is given Keppra 500 mg IV, Ativan 2 mg IV push. SIGNIFICANT LABORATORY DATA: EKG showing sinus tachycardia, first degree AV block, LVH. CT angiogra phy showed bilateral carotid stenoses, internal carotid artery, 30% occlusion, no acute CVA. CT brai n, no acute CVA. CBC: WBC 9.7, hemoglobin 12.6, platelet 276. INR 1.1. Sodium 137, potassium 3.4, BUN 13, creatinine 0.83, chloride 104, carbon dioxide 24, anion gap 12, calcium 8.9. LFT: AST 14, ALT less than 7, alkaline phosphatase 54, albumin 3.6. CK 103. CK-MB 1.0, troponin I less than 0.01 0. ASSESSMENT AND PLAN: 1. Acute change in altered mental status (encephalopathy, acute, over). At this point, differential diagnosis is seizure versus transient ischemic attack. CT brain is negative and CT angiography circ le of [place] is also negative. The patient is up to her baseline level at this point. Neurology is consulted. We will defer further investigation to them. We will monitor for any seizure. We will c ontinue Keppra 1000 mg p.o. b.i.d. Neuro check every 4 hourly. 2. History of cerebrovascular accident with residual right upper and lower extremity weakness. PT, OT, speech will be consulted while in hospital. Continue Aggrenox 1 capsule p.o. b.i.d., Lipitor 10 mg p.o. at bedtime and Prinzide one tablet twice daily. 3. Seizure disorder. Continue Keppra 1000 mg p.o. b.i.d., monitor for any further seizure. Neurolo gy on the case. 4. Hypertension, currently well controlled. Continue Prinzide 20/25 one tablet p.o. b.i.d. 5. Dyslipidemia. Continue Lipitor 10 mg p.o. at bedtime. 6. Anxiety and depression. Continue Celexa 40 mg p.o. daily. 7. Obesity with BMI 32. Dietary education given, weight loss education given. 8. Hypokalemia. Potassium chloride 20 mEq p.o. one time dose. 9. Deep venous thrombosis prophylaxis. Lovenox 40 mg subcu daily. 10. Gastrointestinal prophylaxis, Pepcid 20 mg p.o. b.i.d. 11. Code status: The patient is FULL CODE. Patient's son and is surrogate decision maker. Disposition plan based on clinical course. We are expecting patient's stay in hospital 24-48 hours. Plan of care discussed with the patient in detail.
[2018-07-15] MEDS ORDERED: Zolpidem Tartrate 5 MG TAB PO PRN (18:00)
--- NOTE | 2018-07-15 18:33 | CON ---
DATE OF CONSULTATION: 07/15/2018 CHIEF COMPLAINT: Possible seizure. HISTORY OF PRESENT ILLNESS: The patient gave me her medical history. No family member was present. I also reviewed her chart and obtained some history from the emergency medical record. The patient was last seen normal 40 minutes prior to the event. The patient was brought to the ER by her son who reported to the ER physician that she was trying to call his name, but had difficulty saying it. Son reports that this is what she does normally with seizures. EMS report was that her only new symptom was this aphasia. She has prior right- sided hemiparesis. The patient also states she has generalized tonic clonic seizures and she usually knows when she is going to have a seizure. She has a neurologist, but she could not recall his name and states he is the one who monitors her Keppra. She has a history of seizures since 2010. She has help at home from her son, [id number] and her daughter. She sometimes has headaches. There are no recent seizures. Her last seizure was 4 months ago. The patient reports she has had problems with her right side since her prior stroke. 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 PAST SURGICAL HISTORY: Cataract surgery in 2009. Surgical history including appendectomy, tubal ligation in 1982. PSYCHIATRIC HISTORY: Positive for schizophrenia, bipolar disorder and depression. SOCIAL HISTORY: The patient states she smokes 1 pack a day and she used to use drugs. Last used drugs in 2008 and she has used multiple drugs including marijuana. She does drink occasionally. 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 She currently lives at home with her family and her son, daughter and [id number] help her. FAMILY HISTORY: The patient has 13 siblings, 3 sisters and 10 brothers, most of them have hypertension. She had 10 children, 6 of them already and she has 4 living children, 2 boys and 2 girls. One of the twin daughters from a pneumonia. She had a heart surgery at age 5 years. The patient's nephew has seizures. Father in his 60s. He had cancer. The patient is not sure what area of the body. Mother was killed. She was shot and killed and had diabetes. She too in her 60s. MEDICATIONS: The patient takes Aggrenox, Keppra, pravastatin, citalopram and lisinopril hydrochlorothiazide. Doses were verified according to the chart. CURRENT LABORATORY WORKUP: White count 9.7, hemoglobin 12.6, hematocrit 40.5, platelets 276,000. PT 13.9, INR 1.1, PTT 27.7. Chemistry, sodium 137, potassium 3.4, bicarbonate 24, BUN 13, creatinine 0.83, glucose 119, ALT less than 7, AST 14, alkaline phosphatase 54. CPK 103. Urinalysis, not available and her other reports include CT angiography, which showed no evidence of any intracranial stenosis. She has bilateral proximal ICA and some moderate left vertebral artery calcification. Right vertebral artery seems to end in the pica and her brain CT scan showed no evidence of acute stroke and she does have area of hyperdensity in the medial aspect of the right middle cranial fossa compatible with a previous meningioma. This has not changed significantly since the previous comparison MRI from 2016. ROS: Pulmonary: Normal, no SOB, or cough Cardiac: Negative for chest pain or palpitations GI: No constipation or nausea or vomiting Neurological: Positive for seizure and word finding difficulties. Hematologic: Negative for bleeding diatheses. Endocrine: Normal Genitourinary: Normal no bladder dysfunction. ENT: Normal. Dermatologic: Normal. PHYSICAL EXAMINATION: VITAL SIGNS: Blood pressure was 118/76, pulse is 87, temperature 97.8, respiratory rate 18. GENERAL APPEARANCE: A very pleasant lady who is in bed. She does have a right foot eversion and so she has a dimple near the right hip. CHEST: Clear vesicular breathing except she has some wheezing per our RN. It was more of an expiratory wheeze. CARDIAC: S1, S2 heard. No murmurs. ABDOMEN: Soft, nontender. No organomegaly noted. NEUROLOGICAL: Higher intellectual functions, normal orientation to time, place and person. Cranial nerve examination, she has a right facial droop. Extraocular movements are normal. Hearing is normal. Pupils are reactive to light bilaterally. Normal sensation of face bilaterally. She has tongue deviation to the right. Normal elevation of palate. Motor examination, she has increased tone in the right elbow. She does not have much of a hand pathology lab technician on the right side and strength is definitely impaired on the right side. Muscle groups tested are as follows, iliopsoas 5 on the left and 3 on the right , hamstrings and quads 5 on the right and 5 on the left, ankle dorsiflexion is 4 /5 on the right and 5 on the left, ankle plantar flexion 0/5 on the right and 5/ 5 on the left and deltoid is 5 on the left and 3 on the right. Biceps and triceps are 3. Wrist extension and flexion 4/5 on the right and 5 on the left. Finger extensors and flexors were 0 on the right. Deep tendon reflexes 2+ bilaterally including right knee jerk and absent ankle jerk on the right. She had normal touch and proprioception bilaterally. Gait, not testable. IMPRESSION: The patient is a 62-year-old lady who has prior history of cerebrovascular accident. At this time, she is here for evaluation of possible seizure plus aphasia-like symptoms, but her CT angiogram is negative and her examination shows primarily right tongue deviation, right-sided weakness and eversion of the right foot, which could be more of a local pathology such as hip pathology and clinically, she is stable at this time. No further seizures noted since admission. RECOMMENDATIONS: 1. I will increase her Keppra dosage and continue to monitor for seizures. 2. MRI scan of the brain to rule out any small event that could be causing some aphasia. During our exam as well, she had some intermittent confusion or difficulty following commands. 3. I will follow up the patient with you tomorrow again and this consultation was done via telemedicine. JOSE DE JESUS
[2018-07-15] MEDS: levETIRAcetam 500 MG TAB PO SCH (19:46)
[2018-07-15] MEDS ORDERED: Atorvastatin Calcium 10 MG TAB PO SCH (21:00)
[2018-07-16 05:11] LABS: #Basophils 0.1 thou/uL (0.0-0.2); #Eosinphils 0.2 thou/uL (0.0-0.7); #Lymphocytes 2.3 thou/uL (1.20-3.40); #Monocytes 0.5 thou/uL (0.11-0.59); #Neutrophils 3.1 thou/uL (1.40-6.50); %Basophils 1.2 % (0.0-1.0); %Eosinophils 2.5 % (0.0-10.0); %Lymphocytes 37.2 % (21.0-51.0); %Monocytes 8.2 % (0.0-10.0); Hemoglobin 12.2 g/dL (12.0-16.0); Mean Corpuscular HGB CONC 30.1 g/dL (32.0-36.0); Mean Corpuscular Hemoglobin 26.2 pg (27.0-31.0); Mean Corpuscular Volume 87.3 fL (78.0-98.0); Platelet Count 276 thou/uL (130-400); RBC Distribution Width 16.1 % (11.5-14.5); Red Blood Cell (RBC) Count 4.66 mill/uL (4.20-5.40); White Blood Cell (WBC) Count 6.1 thou/uL (4.8-10.8)
[2018-07-16 05:27] LABS: Anion Gap 10 mmol/L (10-20); BUN (Urea Nitrogen) 10 mg/dL (9.8-20.1); Calc. Creatinine Clearance 105 mL/min (70-130); Calcium 9.2 mg/dL (7.8-10.44); Carbon Dioxide 30 mmol/L (23-31); Chloride 101 mmol/L (98-107); Estimated GFR-MDRD 83; Glucose 97 mg/dL (80-115); Potassium 3.7 mmol/L (3.5-5.1); Sodium 137 mmol/L (136-145)
[2018-07-16 08:17] VITALS: TEMP 98.4
[2018-07-16] MEDS: Famotidine 20 MG TAB PO SCH (09:04)
[2018-07-16] MEDS: Aggrenox 200-25mg CAP PO SCH (09:04)
[2018-07-16] MEDS: levETIRAcetam 500 MG TAB PO SCH (09:04)
[2018-07-16] MEDS: Enoxaparin Sodium 40 MG/0.4 ML SYRINGE SC SCH (09:04)
[2018-07-16] MEDS: Lisinopril/Hydrochlorothiazide 20/25 mg Tablet PO SCH (09:05)
[2018-07-16] MEDS: Citalopram 20 MG TAB PO SCH (09:05)
--- NOTE | 2018-07-16 10:47 | DIS ---
DATE OF ADMISSION: 07/15/2018 DATE OF DISCHARGE: 07/16/2018 PRIMARY CARE PHYSICIAN: Dr. Blanca Rose. DISCHARGE DISPOSITION: Home. PRIMARY DISCHARGE DIAGNOSIS: Seizure. SECONDARY DISCHARGE DIAGNOSES: Normocytic normochromic anemia, anxiety, depression, dyslipidemia, hi story of cerebrovascular accident with residual right-sided hemiparesis and aphasia, gastroesophageal reflux disease, dyslipidemia, hypertension, seizure disorder, restless legs syndrome, obesity with b christine mass index 32. PRIMARY PROCEDURE/OPERATION: None. RADIOLOGICAL INVESTIGATION: CT brain did not show any acute stroke, but it did show encephalomalacia from previous CVA. CT [facility] with angiography was negative for any stenosis, but it did s how 30% narrowing secondary to atherosclerosis. SIGNIFICANT LABORATORY DATA: WBC 6.1, hemoglobin 12.2, platelet 276,000. INR 1.1. Sodium 137, pota ssium 3.7, BUN 10, creatinine 0.84, calcium 9.2. LFT normal. Cardiac enzymes negative. DISCHARGE MEDICATIONS: Aggrenox 1 capsule p.o. b.i.d., Celexa 40 mg p.o. daily, Nexium 20 mg daily, pravastatin 40 mg p.o. at bedtime, Keppra 1500 mg p.o. b.i.d., Prinzide half tablet twice daily. CONTRAINDICATIONS: None. CODE STATUS: Full code. INPATIENT CONSULTANTS: Dr. Ladonna Rasheed, neurologist was consulted while in hospital. TEST RESULTS PENDING ON DISCHARGE: None. ALLERGIES: HALDOL. DISCHARGE PLAN: Post hospital, the patient is instructed to follow up with primary care physician shayy dunlap Neurology as instructed. HOSPITAL COURSE: A 62-year-old female who was admitted by me. Please see my HPI for further details . The patient had transient aphasia, which was worsened from her baseline and she had some suspected seizure type of activity and that is why she was brought to emergency room for evaluation. Initiall y in the emergency room, stroke alert was initiated, but her CT brain was negative for any acute proc ess. CT [facility] showed only 30% narrowing of internal carotid artery secondary to atheroscl erosis and calcification. The patient was observed on the stroke floor. Her neurological examinatio n was stable. Neurology saw this patient and they recommended to increase seizure medication to 1500 mg twice daily. Initially, they recommended MRI brain, but today when communicated with the Neurolo gy, they do not want a new MRI to be done. The patient is seen and examined at bedside today. She has baseline expressive aphasia as well as ri ght upper and lower extremity weakness from previous stroke, but other examination is completely norm al. Vital signs today, temperature 98.4, pulse 87, respiratory rate 20, saturation 93% on room air, blood pressure 100/63. As her blood pressure was running low and that is why we reduced dose of Prin zide to half tablet twice daily. All new medication prescription sent to her pharmacy. The patient is medically stable for discharge today.
[2018-07-16 11:42] VITALS: BP 101/63
--- NOTE | 2018-07-16 17:07 | PRG ---
DATE OF SERVICE: 07/16/2018 CHIEF COMPLAINT: Seizures. INTERVAL HISTORY: The patient has not had any further seizures and remained stable and is planned fo r discharge to her home since there are no new neurological deficits and her speech had returned to [facility]. LABORATORY WORKUP: White count 6.1, hemoglobin 12.2, hematocrit 40.7, platelets 276. Chemistry: So dium 137, potassium 3.7, chloride 101, bicarbonate 30, BUN 10, creatinine 0.84, glucose 97. PHYSICAL EXAMINATION: VITAL SIGNS: Her blood pressure is 116/75, pulse is 98, temperature 98.4. GENERAL APPEARANCE: Well-built, well-nourished lady comfortable in bed. NEUROLOGIC: Her intellectual functions, normal orientation to time, place and person. Cranial nerve examination: She has tongue deviation to the right side and mild facial asymmetry on the right side . Normal extraocular movements. Motor: She has 3/5 strength in the right biceps and right lower ex tremity and no significant change from yesterday. In the left side, her strength is normal and invol untary movements. She has mild tardive dyskinesia of jaw. IMPRESSION: The patient is a 62-year-old lady who is known to have a seizure disorder and has a left -sided prior history of CVA and she was admitted with possible seizure plus aphasia like symptoms. C TA was negative. Exam showed right-sided residual deficits and no further seizures were noted since admission. RECOMMENDATIONS: It is okay to postpone her MRI since she has remained extremely stable and we shahid nue current dose of Keppra. She will return back to her neurologist for further care and followup.
== END 2018-07-16 11:17 | disposition home or self-care (01) | DRG 101 ==
LOC: ERS 21:49 → 2SE 07-15 00:39
PROVIDERS: ADMIT Internal Medicine; ATTEND Internal Medicine
DX: G40.901 Epilepsy, unspecified, not intractable, with status epilepticus (principal); I69.351 Hemiplegia and hemiparesis following cerebral infarction affecting right dominant side; G93.40 Encephalopathy, unspecified; D64.9 Anemia, unspecified; F41.9 Anxiety disorder, unspecified; F32.9 Major depressive disorder, single episode, unspecified; E78.5 Hyperlipidemia, unspecified; I69.320 Aphasia following cerebral infarction; K21.9 Gastro-esophageal reflux disease without esophagitis; I10 Essential (primary) hypertension; G25.81 Restless legs syndrome; E66.9 Obesity, unspecified; Z68.32 Body mass index [BMI] 32.0-32.9, adult; I65.29 Occlusion and stenosis of unspecified carotid artery; F20.9 Schizophrenia, unspecified; F17.210 Nicotine dependence, cigarettes, uncomplicated; M21.071 Valgus deformity, not elsewhere classified, right ankle; Z91.81 History of falling; J44.9 Chronic obstructive pulmonary disease, unspecified; F12.11 Cannabis abuse, in remission; D32.9 Benign neoplasm of meninges, unspecified; E87.6 Hypokalemia
CPT/HCPCS: 36415; 36416; 70450; 70496; 70498; 80048; 80053; 82550; 82553; 84484; 85025; 85610; 85730; 93005; 96374; 96375; G8978-GP-CK; G8979-GP-CI; G8996-GN-CH; G8997-GN-CH; J1650; J1953; J2060

== ENCOUNTER 2019-03-30 08:41 | Emergency (ER) | payer MEDICARE, SELFPAY ==
--- NOTE | 2019-03-30 10:02 | RAD ---
EXAM: XR Shoulder Rt 3 View STANDARD PROVIDED CLINICAL HISTORY: Pain status post injury COMPARISON: None FINDINGS: Transversely oriented fracture of the proximal right humeral metaphyseal region probable rotational d isplacement of the humeral head. Nondisplaced greater tuberosity fracture may also be present. Glenohumeral relationship appears maintained. Acromioclavicular joint degenerative changes are seen. Question opacity right upper lung zone laterally, possibly confluence of shadows. IMPRESSION: 1. Proximal humeral fracture. 2. Possible right lung nodule. Correlation with chest radiograph recommended. Code lung nodule
[2019-03-30] MEDS ORDERED: Ibuprofen 200 MG TAB ONE (10:41)
== END 2019-03-30 11:28 | disposition home or self-care (01) ==
LOC: ERS 08:41
DX: S42.201A Unspecified fracture of upper end of right humerus, initial encounter for closed fracture (principal); I10 Essential (primary) hypertension; F20.9 Schizophrenia, unspecified; F31.9 Bipolar disorder, unspecified; F17.210 Nicotine dependence, cigarettes, uncomplicated; Z86.73 Personal history of transient ischemic attack (TIA), and cerebral infarction without residual deficits; Z79.899 Other long term (current) drug therapy; W06.XXXA Fall from bed, initial encounter

== ENCOUNTER 2019-04-13 14:12 | Outpatient (CLI) | payer MEDICARE ==
--- NOTE | 2019-04-13 16:07 | CT ---
Exam: CT chest without contrast HISTORY: Abnormal chest radiograph COMPARISON: None Correlation: Chest CT 06/25/2018 FINDINGS: Limited evaluation of the mediastinum due to lack of IV contrast. Enlarged precarinal lymph node measuring 1.4 x 1.7 cm. Normal heart size. No significant pericardial fluid. There are coronary artery calcifications. Visualized aorta demonstrates atherosclerotic disease. No evidence of aneurysm. CT evidence of cholelithiasis. Limited evaluation the solid organs. Anterior to the right ventricle, pericardial in location is a 2.8 x 2.2 cm hypodensity with an attenu ation coefficient of -13 Hounsfield units. Pericardial cyst is favored. Trachea and central bronchi are patent. Bilateral apical bulla. Additional small blebs are noted in t he remainder the lung parenchyma. No masses or consolidation. No thorax. Fluid. Dependent atelectatic changes lung bases. Calcified granuloma the right upper lobe. There does not appear to be any abnormality in the right perihilar region as suggested on previous radiograph. No lytic or blastic lesions in the osseous structures IMPRESSION: Emphysematous changes lung parenchyma. No evidence of abnormal mass or consolidation in t he right perihilar region, as suggested by previous radiograph Transcribed Date/Time: 04/13/2019 3:25 PM
== END 2019-04-13 14:13 | disposition home or self-care (01) ==
LOC: BICCT 14:12
DX: R93.89 Abnormal findings on diagnostic imaging of other specified body structures (principal)
CPT/HCPCS: 71250

== ENCOUNTER 2019-06-14 18:19 | Inpatient (IN) | payer MEDICARE ==
--- NOTE | 2019-06-14 18:39 | CT ---
CT BRAIN NONCONTRAST: DATE: 06/14/2019 HISTORY: 63-year-old female with acute stroke symptoms: Dysarthria COMPARISON: 07/14/2018 FINDINGS: There is no evidence of acute intra-axial or extra-axial hemorrhage. There is no midline shift or any other mass effect. There is no extra-axial fluid collection. There is no evidence of obstructive hydrocephalus. Calvarium is intact. There is a large region of encephalomalacia and gliosis involving the left frontal lobe, with the largest portion located superiorly, where it involves both the precentral gyrus and post central gyrus (motor cortex and sensory cortex). There is a small to modera te size region of encephalomalacia and gliosis in the right temporal lobe. There is no interval change overall. IMPRESSION: 1. No acute intracranial findings. 2. Large old infarction in left middle cerebral artery territory. 3. Small to moderate-sized old insult in right temporal lobe, presumably old infarction in right midd le cerebral artery territory.
--- NOTE | 2019-06-14 19:11 | CT ---
CT ANGIOGRAM NECK WITH CONTRAST CT ANGIOGRAM BRAIN WITH CONTRAST: DATE: 06/14/2019 HISTORY: 63-year-old female with acute stroke symptoms: Dysarthria This level 1 stroke alert protocol report was given by Dr. Adame verbally to Dr. Hogue of the emergen cy Department at 7:07 PM on 06/14/2019 TECHNIQUE: After IV contrast injection, arterial bolus chasing technique scan performed from aortic arch to vert ex of head. Coronal and sagittal 3-D MIP reconstructions. FINDINGS: Multiple small blebs and bullae at bilateral lung apices. Mildly enlarged thyroid gland. Right vertebral: Diminutive and terminates in PICA. Right vertebral Origin difficult to evaluate. Left vertebral: Dominant. No high-grade stenosis identified. Mild stenosis at a focus of calcified pl aque intracranially. Basilar: No high-grade stenosis or clot. Bilateral canary raiser: P1 and P2 segments normal. Bilateral superior cerebellars: Not occluded. There is possible high-grade stenosis at origin of righ t. Bilateral carotid siphons: Heavily calcified plaque makes it difficult to evaluate luminal diameter. Bilateral MCAs: No M1 segment clot or high-grade stenosis. Bilateral ACAs: No high-grade stenosis or clot involving A1 and A2 segments. Brachiocephalic: No high-grade stenosis. Right subclavian: No high-grade stenosis. Left subclavian: Distal portion obscured by beam hardening artifact from adjacent dense contrast bolu s in adjacent left subclavian vein. No high-grade stenosis at proximal and mid portions. Right common carotid: No high-grade stenosis. Right internal carotid: Small calcified plaque proximally without high-grade stenosis. No high-grade stenosis in cervical portion. Left common carotid: No high-grade stenosis. Left internal carotid: Calcified and noncalcified plaque at proximal LICA causing up to approximately 30% stenosis. No high-grade stenosis in cervical portion. Most of the major arteries are tortuous, especially the common and internal carotid arteries. IMPRESSION: 1. No thrombosis or high-grade stenosis of M1 segments of middle cerebral arteries. 2. Atherosclerosis of bilateral proximal internal carotid arteries, causing mild stenosis on the left and minimal stenosis on the right. 3. Right vertebral artery terminates in posterior-inferior cerebellar artery. 4. Paraseptal emphysema.
[2019-06-14 19:22] LABS: ALT (SGPT) 7 U/L (8-55); AST (SGOT) 14 U/L (5-34); Acetaminophen Less than 6.0 mcg/mL (10.0-30.0); Alcohol Less than 10 mg/dL (Less than 10); Alkaline Phosphatase 77 U/L (40-110); Anion Gap 13 mmol/L (10-20); BUN (Urea Nitrogen) 7 mg/dL (9.8-20.1); Bilirubin, Total 0.5 mg/dL (0.2-1.2); CK (CPK) 95 U/L (29-168); Calc. Creatinine Clearance 0 mL/min (70-130); Calcium 9.3 mg/dL (7.8-10.44); Carbon Dioxide 24 mmol/L (23-31); Chloride 102 mmol/L (98-107); Estimated GFR-MDRD Greater than 90; Globulin 3.6 g/dL (2.4-3.5); Glucose 99 mg/dL (80-115); Potassium 3.4 mmol/L (3.5-5.1); Protein, Total 7.6 g/dL (6.0-8.3); Salicylate Less than 8.0 mg/dL (15.0-30.0); Sodium 136 mmol/L (136-145)
[2019-06-14 19:26] LABS: #Basophils 0.1 thou/uL (0.0-0.2); #Eosinphils 0.1 thou/uL (0.0-0.7); #Lymphocytes 2.8 thou/uL (1.20-3.40); #Monocytes 0.6 thou/uL (0.11-0.59); #Neutrophils 3.1 thou/uL (1.40-6.50); %Basophils 0.9 % (0.0-1.0); %Eosinophils 1.8 % (0.0-10.0); %Lymphocytes 41.9 % (21.0-51.0); %Neutrophils 46.4 % (42.0-75.0); Hemoglobin 13.3 g/dL (12.0-16.0); Mean Corpuscular HGB CONC 32.2 g/dL (32.0-36.0); Mean Corpuscular Hemoglobin 27.5 pg (27.0-31.0); Mean Corpuscular Volume 85.2 fL (78.0-98.0); Mean Platelet Volume 9.1 fL (7.4-10.4); Platelet Count 290 thou/uL (130-400); RBC Distribution Width 14.4 % (11.5-14.5); Red Blood Cell (RBC) Count 4.85 mill/uL (4.20-5.40); White Blood Cell (WBC) Count 6.6 thou/uL (4.8-10.8)
[2019-06-14 19:28] LABS: PTT 29.2 SEC (22.9-36.1); Prothrombin Time 13.7 SEC (12.0-14.7)
--- NOTE | 2019-06-14 19:44 | RAD ---
PORTABLE CHEST: 06/14/19 PROVIDED CLINICAL HISTORY: Stroke symptoms. FINDINGS: Comparison 06/25/18. The cardiac silhouette appears enlarged which may be at least partially on the basis of portable tech nique. Prominence of the pulmonary interstitium is similar to the prior study. There is no focal cons olidation, pleural fluid, or pneumothorax apparent. IMPRESSION: Stable radiographic appearance of the chest. POS: THOMAS
[2019-06-14 20:17] LABS: Bilirubin Negative (Negative); Blood, Urine Negative (Negative); Clarity Clear (Clear); Glucose, Urine (Dipstick) Normal (Negative); Leukocyte Negative Leu/uL (Negative); Nitrite Negative (Negative); Protein, Urine (Dipstick) Negative (Neg-Trace); Urobilinogen Normal mg/dL (Less than 2)
[2019-06-14 20:25] LABS: Medtox Reader # READER 1
[2019-06-14 20:26] LABS: Amphetamine Not Detected (NotDetected); Barbiturates Screen Not Detected (NotDetected); Benzodiazepine Screen Not Detected (NotDetected); Cocaine Metabolite Screen Not Detected (NotDetected); Medtox Control Line Valid? VALID (VALID); Methadone Not Detected (NotDetected); Methamphetamine Not Detected (NotDetected); Opiate Screen Not Detected (NotDetected); Oxycodone Screen Not Detected (NotDetected); Phencyclidine (PCP) Not Detected (NotDetected); THC/Cannabinoid Screen Detected (NotDetected); Tricyclic Screen Not Detected (NotDetected)
[2019-06-14] MEDS ORDERED: Lorazepam 2 MG/ML VIAL SLOW IVP PRN (21:00)
[2019-06-14] MEDS ORDERED: Ondansetron PF 4 MG/2 ML Vial IVP PRN (21:55)
[2019-06-14] MEDS ORDERED: Acetaminophen 325 MG TAB PO PRN (21:55)
[2019-06-14] MEDS ORDERED: Ondansetron ODT 4 MG TAB SL PRN (21:55)
[2019-06-14 22:22] VITALS: BMI 30.4
[2019-06-14] MEDS: levETIRAcetam In NaCl (Iso-Os) 1,500 MG in Premix Bag 1 BAG IVPB SCH (22:50)
[2019-06-14] MEDS ORDERED: Senokot S 8.6-50 MG TAB PO PRN (23:13)
[2019-06-14] MEDS ORDERED: Acetaminophen 650 MG Suppository PR PRN (23:13)
[2019-06-14] MEDS ORDERED: NS 0.9% w/ 20 MEQ KCL 1,000 ML/1,000 ML BAG IV SCH (23:45)
--- NOTE | 2019-06-15 00:13 | HP ---
This is ABIMAEL Posada dictating a report for Mike Whaley MD. PRIMARY CARE PHYSICIAN: Dr. Case in [place]. HISTORY OF PRESENT ILLNESS: Slurred speech, right arm weakness, left leg weakness, aphasia. HISTORY OF PRESENT ILLNESS: Ms. Mitchell is a 63-year-old female who was brought into the emergency room via ambulance after her daughter went after work to check on her. States that she was up using her walker and had gone to the bathroom and then when she noticed, she went sat on the porch and her mom used her walker to get to the front porch and she noticed her mother was slumped over the walker abnormally, stated that she made her sit down and then noticed that she was aphasic and that she had some increased ataxia which her daughter claims some right-sided weakness, although she does have some significant right-sided weakness after a CVA in 2013. EMS reports that upon their arrival, patient was nonverbal, but improved and is now able to speak, but incomprehensibly. The patient is on Aggrenox for the previous stroke and does have what she described as absent seizures since the last CVA. She is currently on Keppra 1500 mg p.o. b.i.d. Daughter denies any recent illness, cough, cold, congestion, any other symptoms. She has seen Dr. Bailon in the past and other than the CVA that she had in 2013 and the seizures, has a history of hypertension, hyperlipidemia, schizophrenia, bipolar, depression, chronic meningioma, COPD, and GERD. She was initially seen in the emergency room, had a CT and CTA, which was negative for any acute findings. During the exam by the hospitalist WEATHERIZATION FIELD TECHNICIAN, the patient able to follow commands, tries to speak, but is unable to get the words out, but is able to follow commands. Does have some right-sided residual deficits with left arm and left leg with full range of motion and strength. The patient will be admitted to the stroke unit for further management. REVIEW OF SYSTEMS: Some dysarthria, residual right-sided weakness, which daughter says has been there since her stroke in 2013. She is able to answer simple yes and no questions. Denies any other issues. All other systems reviewed and are negative unless mentioned in the HPI. PAST MEDICAL HISTORY: History of CVA, residual right-sided deficits, post CVA seizure disorder, chronic meningioma, hypertension, dyslipidemia, chronic obstructive pulmonary disease, GERD. PAST SURGICAL HISTORY: Appendectomy, bilateral tubal ligation, bilateral cataract surgery. PSYCH HISTORY: Schizophrenia, bipolar, depression. SOCIAL HISTORY: Drinks socially. Does abuse marijuana, is a tobacco smoker, smokes a pack a day. FAMILY HISTORY: Patient's mother of a gunshot wound in her 60s. Father as well. ALLERGIES: HALDOL. HOME MEDICATIONS: Aggrenox 25/200 mg one capsule p.o. b.i.d., BuSpar 15 mg p.o. b.i.d., lisinopril 20 mg p.o. daily, pravastatin 40 mg p.o. at bedtime, and Keppra 1500 mg p.o. b.i.d. PHYSICAL EXAMINATION: VITAL SIGNS: Temperature is 98.3, pulse is 76, respirations are 20, PO2 sats are 92% on room air, blood pressure 158/102. CONSTITUTIONAL: The patient appears nontoxic, is in no apparent distress. HEENT: Head is atraumatic and normocephalic. Eyes, pupils are equally round and reactive to light. Extraocular muscles are intact. ENT; mouth exam is normal. Tongue is curved to the right, appears involuntary. NECK: Normal range of motion. Trachea is midline. RESPIRATORY: Chest, breath sounds are clear. Chest expansion is equal. CARDIOVASCULAR: Regular heart rate and rhythm. Heart sounds are normal. ABDOMEN: Nontender. Bowel sounds are heard. BACK: Normal range of motion. No CVA tenderness. EXTREMITIES: Upper extremities, right arm and right leg with no movement, is unable to move, 0/5 strength. Left side 5/5. Normal range of motion. Radial pulses are equal bilaterally. Lower extremity, 0/5 strength on the right, 5/5 on the left. Pedal pulses are equal bilaterally. NEUROLOGIC: Dysarthria with incomprehensible speech, right arm and leg with no movement. Left arm and left leg are with full range of motion. SKIN: Warm and dry, normal in color. PSYCHIATRIC: Appears to have a normal affect. Answers yes and no questions. DIAGNOSTIC DATA: EKG in the emergency room shows normal sinus rhythm, beats per minute 97. ST segments, T-waves are normal, axis is normal. CT scan, positive for multiple old strokes, but otherwise unchanged. LABORATORY DATA: Hypokalemic with a potassium of 3.4, BUN is 7, ALT is 7, globulin is 3.6. TSH is 7.39. Urine negative. Urine drug screen positive for cannabinoids. ASSESSMENT/PLAN: 1. Acute change in altered mental status. Differential diagnosis seizure versus transient ischemic attack, especially with the dysarthria and possible additional CVA. CT of the brain and CTA are negative for any acute findings. We will consult Neurology. Keppra has been converted to IV until the patient passes swallow test. Neuro checks every 4 hours. Stroke Team activation. We will continue the Aggrenox, Lipitor. 2. History of CVA. See #1. 3. Seizure disorder. See #1. 4. Hypertension. We will continue home medications. 5. Dyslipidemia. We will continue home medications. 6. Anxiety and depression. Continue on Celexa, home medications. 7. Hypokalemia. We will replace to normal saline with 20 mEq of KCl at 75 mL per hour x1 bag. We will recheck in the morning. 8. Gastrointestinal prophylaxis. 9. Code status is full. Case was discussed with Dr. Hirsch who agrees with plan. Job ID: [id number]
[2019-06-15] MEDS ORDERED: hydrALAZINE 20 MG/ML VIAL SLOW IVP PRN (03:40)
[2019-06-15 05:07] LABS: #Monocytes 0.4 thou/uL (0.11-0.59); #Neutrophils 5.8 thou/uL (1.40-6.50); %Basophils 0.6 % (0.0-1.0); %Eosinophils 0.2 % (0.0-10.0); %Lymphocytes 13.1 % (21.0-51.0); %Monocytes 5.8 % (0.0-10.0); %Neutrophils 80.2 % (42.0-75.0); Hemoglobin 13.1 g/dL (12.0-16.0); Mean Corpuscular HGB CONC 32.2 g/dL (32.0-36.0); Mean Corpuscular Hemoglobin 27.7 pg (27.0-31.0); Mean Corpuscular Volume 86.1 fL (78.0-98.0); Mean Platelet Volume 8.7 fL (7.4-10.4); Platelet Count 267 thou/uL (130-400); RBC Distribution Width 14.4 % (11.5-14.5); Red Blood Cell (RBC) Count 4.72 mill/uL (4.20-5.40); White Blood Cell (WBC) Count 7.2 thou/uL (4.8-10.8)
[2019-06-15 05:33] LABS: ALT (SGPT) 7 U/L (8-55); AST (SGOT) 12 U/L (5-34); Albumin 3.9 g/dL (3.4-4.8); Alkaline Phosphatase 74 U/L (40-110); Anion Gap 16 mmol/L (10-20); BUN (Urea Nitrogen) 6 mg/dL (9.8-20.1); Bilirubin, Total 0.5 mg/dL (0.2-1.2); Calc. Creatinine Clearance 105 mL/min (70-130); Calcium 9.4 mg/dL (7.8-10.44); Carbon Dioxide 24 mmol/L (23-31); Chloride 99 mmol/L (98-107); Estimated GFR-MDRD Greater than 90; Globulin 3.8 g/dL (2.4-3.5); Glucose 106 mg/dL (80-115); Potassium 3.8 mmol/L (3.5-5.1); Protein, Total 7.7 g/dL (6.0-8.3); Sodium 135 mmol/L (136-145)
--- NOTE | 2019-06-15 10:24 | CON ---
DATE OF CONSULTATION: 06/15/2019 CONSULTING PHYSICIAN: Hospitalist Service. IMPRESSION: Prior stroke with right hemiparesis and questionable worsening. PLAN: 1. MRI of the brain. 2. Continue current treatment until studies have returned. HISTORY OF PRESENT ILLNESS: Ms. Mitchell is a 63-year-old black female with a past history of hypertension, prior stroke in 2012 with right hemiparesis, who presented yesterday with some increased weakness. Her daughter reports that she was slumping over her walker. She had a reportedly some increased aphasia compared to her baseline. She has a history of chronic right-sided weakness. Apparently, she can get around with a walker. She has a history of a seizure disorder secondary to her stroke, but there was no reported seizure activity. She had a CT scan of the brain done on admission, which showed large area of chronic ischemic injury involving the frontal and left parietal region. There was no acute hemorrhage present. CTA did not reveal any evidence of stenosis. Her vital signs showed hypertension with blood pressures around 158/102. She was initially afebrile. She has developed a temperature of 100.3 since admission. PAST MEDICAL HISTORY: As listed. ALLERGIES: HALDOL. SOCIAL HISTORY: No tobacco or alcohol reported. FAMILY HISTORY: Noncontributory. REVIEW OF SYSTEMS: Ten-system review of systems not obtainable due to her aphasia. PHYSICAL EXAMINATION: GENERAL: She is a well-nourished elderly lady, lying in bed, in no acute distress. VITAL SIGNS: Blood pressure 163/102, pulse 107, respirations 24, and temperature 100.3. HEENT: Pupils are equal. Conjunctivae are clear. Oropharynx is clear. NECK: No lymphadenopathy. EXTREMITIES: No cyanosis or edema. NEUROLOGIC: She was alert, but nonverbal. I could not get her to follow most simple commands. Her face was symmetric in appearance. She was flaccid on the right side including the right leg. Sensation was grossly intact. No abnormal movements were seen. Gait was not testable. LABORATORY STUDIES: Unremarkable CBC, coagulation panel, chemistry panel, urinalysis, and toxicology screen other than positive for cannabis. SUMMARY: This is a 63-year-old woman with reported history of residual right-sided deficits, which appear to have possibly worsened based on the history. I would proceed with an MRI of the brain to see if there are any acute ischemic changes. Given that she was on Aggrenox, I would consider switching her to aspirin and Plavix. She will likely need rehab screening and determine whether she is a candidate for inpatient rehab or [facility]. An echocardiogram is pending as well. Job ID: [id number]
[2019-06-15] MEDS: Aggrenox 200-25mg CAP PO SCH ×2 (11:11→21:48)
[2019-06-15] MEDS: Enoxaparin Sodium 40 MG/0.4 ML SYRINGE SC SCH (11:12)
[2019-06-15] MEDS: Famotidine/PF 20 mg/2ml Vial SLOW IVP SCH ×2 (11:13→20:54)
--- NOTE | 2019-06-15 12:25 | PDOC.HOSPP ---
- Subjective Encounter Date: 06/15/19 Encounter Time: 12:23 Subjective: 63 y/o femal with prior CVA with residual right sided weakness admitted with acute onset of aphasia and worsening of right sided weakness. Still with aphasia. - Objective Vital Signs & Weight: Vital Signs (12 hours) Temp Pulse Pulse Pulse Resp BP BP 06/15/19 11:52 100.1 F H 107 H 18 06/15/19 10:38 109 H 161/102 H 06/15/19 09:30 111 H 109 H 117/81 161/102 H 06/15/19 07:20 100.3 F H 107 H 24 H 06/15/19 04:00 100.3 F H 111 H 20 BP Pulse Ox 06/15/19 11:52 188/112 H 91 L 06/15/19 10:38 06/15/19 09:30 06/15/19 07:20 163/102 H 94 L 06/15/19 04:00 197/110 H 92 L Weight Weight 194 lb Result Diagrams: 06/15/19 04:28 06/15/19 04:28 Additional Labs: Accuchecks 06/14/19 18:24 POC Glucose 99 Hospitalist ROS - Medication Medications: Active Medications Generic Name Dose Route Start Last Admin Trade Name Freq PRN Reason Stop Dose Admin Dipyridamole/Aspirin 1 cap 06/15/19 09:00 06/15/19 11:11 Aggrenox PO 1 cap BID URI Administration Enoxaparin Sodium 40 mg 06/15/19 09:00 06/15/19 11:12 Lovenox SC 40 mg 0900 URI Administration Famotidine 20 mg 06/15/19 09:00 06/15/19 11:13 Pepcid SLOW IVP 20 mg Q12HR URI Administration Levetiracetam 1,500 mg/ Device 100 mls @ 200 mls/hr 06/14/19 21:00 06/14/19 22:50 IVPB 100 mls BID URI Administration Potassium Chloride/Sodium Chloride 1,000 ml in 1,000 mls @ 75 mls/hr 06/14/19 23:45 06/15/19 00:47 Ns 0.9% W/ 20 Meq Kcl IV 06/15/19 13:04 1,000 mls .[id number] URI Administration Sodium Chloride 10 ml 06/15/19 09:00 06/15/19 11:13 Flush - Normal Saline IVF 10 ml Q12HR URI Administration - Exam General Appearance: awake alert Eye: anicteric sclera ENT: normocephalic atraumatic Neck: no JVD Heart: RRR Heart - other findings: tachycardic Respiratory: no ronchi Respiratory - other findings: fair air entry with transmitted breathsound. Gastrointestinal: soft, non-tender, non-distended, normal bowel sounds Extremities: no edema Neurological - other findings: right hemiparesis noted Hosp A/P (1) Acute CVA (cerebrovascular accident) Code(s): I63.9 - CEREBRAL INFARCTION, UNSPECIFIED Status: Acute (2) Right hemiparesis Code(s): G81.91 - HEMIPLEGIA, UNSPECIFIED AFFECTING RIGHT DOMINANT SIDE Status : Acute (3) Hypokalemia Code(s): E87.6 - HYPOKALEMIA Status: Acute (4) Carotid atherosclerosis Code(s): I65.29 - OCCLUSION AND STENOSIS OF UNSPECIFIED CAROTID ARTERY Status : Acute (5) Oropharyngeal dysphagia Code(s): R13.12 - DYSPHAGIA, OROPHARYNGEAL PHASE Status: Acute (6) Schizophrenia Code(s): F20.9 - SCHIZOPHRENIA, UNSPECIFIED Status: Acute (7) HTN (hypertension) Code(s): I10 - ESSENTIAL (PRIMARY) HYPERTENSION Status: Acute (8) Seizure Code(s): R56.9 - UNSPECIFIED CONVULSIONS Status: Acute (9) GERD (gastroesophageal reflux disease) Code(s): K21.9 - GASTRO-ESOPHAGEAL REFLUX DISEASE WITHOUT ESOPHAGITIS Status: Chronic (10) Seizure disorder Code(s): G40.909 - EPILEPSY, UNSP, NOT INTRACTABLE, WITHOUT STATUS EPILEPTICUS Status: Chronic (11) Tobacco abuse disorder Code(s): Z72.0 - TOBACCO USE Status: Acute - Plan Continue supportive care. Awaiting MRI brain. Change to asa and plavix as recommended by neurology. Continue IVF for now. nicotine patch
[2019-06-15] MEDS: levETIRAcetam In NaCl (Iso-Os) 1,500 MG in Premix Bag 1 BAG IVPB SCH ×2 (12:54→20:54)
--- NOTE | 2019-06-15 16:57 | MRI ---
MRI Brain WO Con: 06/15/2019 9:02 PM CLINICAL HISTORY: New onset dysarthria, weakness ataxia. COMPARISON: Head CT previous day FINDINGS: Extra axial spaces: Mild enlargement due to parenchymal atrophy. Acute infarction: None. Ventricular system: Stable, with mild ex vacuo dilatation of left lateral ventricle.. Basal cisterns: Normal. Cerebral parenchyma: Large region of left cerebral hemispheric encephalomalacia is present. There is abnormal signal of the anterior right temporal lobe also present, indicating gliosis. There is microvascular ischemic disease of the cerebral white matter. Midline shift: None. Cerebellum: Normal. Brainstem: Limited in assessment due to the degree of patient motion Paranasal sinuses:Clear IMPRESSION:No acute territorial infarction or mass effect. Large region of left cerebral hemispheric encephalomalacia, and involving anterior right temporal lob e, superimposed upon microvascular ischemic disease.
[2019-06-15] MEDS ORDERED: Pravastatin Sodium 40 MG TAB PO SCH (21:00)
[2019-06-15] MEDS: Atorvastatin Calcium 10 MG TAB PO SCH (21:48)
[2019-06-16] MEDS ORDERED: Lisinopril 20 MG TAB PO SCH (09:00)
[2019-06-16] MEDS: Clopidogrel Bisulfate 75 MG TAB PO SCH ×2 (09:16→10:20)
[2019-06-16] MEDS: Lisinopril 20 MG TAB PO SCH ×2 (09:17→10:21)
[2019-06-16] MEDS: Enoxaparin Sodium 40 MG/0.4 ML SYRINGE SC SCH (09:17)
[2019-06-16] MEDS: levETIRAcetam In NaCl (Iso-Os) 1,500 MG in Premix Bag 1 BAG IVPB SCH ×2 (09:18→21:12)
[2019-06-16] MEDS: Famotidine/PF 20 mg/2ml Vial SLOW IVP SCH ×2 (09:18→21:12)
[2019-06-16] MEDS: Nicotine 21 MG PATCH TD SCH (09:28)
--- NOTE | 2019-06-16 09:54 | EKG ---
Test Reason : Blood Pressure : / mmHG Vent. Rate : 097 BPM Atrial Rate : 097 BPM P-R Int : 198 ms QRS Dur : 068 ms QT Int : 370 ms P-R-T Axes : 041 -21 020 degrees QTc Int : 469 ms Normal sinus rhythm Possible Left atrial enlargement Left ventricular hypertrophy Inferior infarct , age undetermined Abnormal ECG Confirmed by ANGELES WILD D.O. ([id number]), newspaper managing editor GEORGE VALENCIA ([id number]) on 06/16/2019 9:53:33 AM Referred By: Confirmed By:ANGELES WILD D.O.
[2019-06-16] MEDS: Aspirin 81 mg Enteric Coated Tablet PO SCH (10:16)
--- NOTE | 2019-06-16 11:03 | PDOC.HOSPP ---
- Subjective Encounter Date: 06/16/19 Encounter Time: 11:01 Subjective: 63 y/o femal with prior CVA with residual right sided weakness admitted with acute onset of aphasia and worsening of right sided weakness. Still with dysphasic but more awake. - Objective Vital Signs & Weight: Vital Signs (12 hours) Temp Pulse Resp BP BP Pulse Ox 06/16/19 10:55 78 16 06/16/19 10:21 166/92 H 06/16/19 07:21 80 16 06/16/19 07:20 97.8 F 90 20 166/92 H 92 L 06/16/19 04:00 98.5 F 80 22 H 164/103 H 91 L 06/16/19 00:00 91 L 06/15/19 23:44 99.2 F 98 24 H 183/106 H 91 L Weight Admit Weight 194 lb Weight 194 lb I&O: 06/15/19 06/16/19 06/17/19 06:59 06:59 06:59 Output Total 380 Balance -380 Result Diagrams: 06/15/19 04:28 06/15/19 04:28 Hospitalist ROS - Medication Medications: Active Medications Generic Name Dose Route Start Last Admin Trade Name Freq PRN Reason Stop Dose Admin Acetaminophen 650 mg 06/14/19 23:13 06/15/19 12:54 Tylenol IA 650 mg Q4H PRN Administration Headache/Fever/Mild Pain (1-3) Albuterol/Ipratropium 3 ml 06/15/19 19:00 06/16/19 10:55 Duoneb NEB 3 ml QID-RT URI Administration Aspirin 81 mg 06/16/19 09:00 06/16/19 10:16 Ecotrin PO 81 mg DAILY URI Administration Atorvastatin Calcium 10 mg 06/15/19 21:00 06/15/19 21:48 Lipitor PO Not Given HS URI Clopidogrel Bisulfate 75 mg 06/16/19 09:00 06/16/19 10:20 Plavix PO 75 mg DAILY URI Administration Enoxaparin Sodium 40 mg 06/15/19 09:00 06/16/19 09:17 Lovenox SC 40 mg 0900 URI Administration Famotidine 20 mg 06/15/19 09:00 06/16/19 09:18 Pepcid SLOW IVP 20 mg Q12HR URI Administration Levetiracetam 1,500 mg/ Device 100 mls @ 200 mls/hr 06/14/19 21:00 06/16/19 09:18 IVPB 100 mls BID URI Administration Lisinopril 20 mg 06/16/19 09:00 06/16/19 10:21 Zestril PO 20 mg DAILY URI Administration Nicotine 21 mg 06/16/19 09:00 06/16/19 09:28 Nicoderm Patch TD 21 mg DAILY URI Administration Sodium Chloride 10 ml 06/15/19 09:00 06/16/19 09:17 Flush - Normal Saline IVF 10 ml Q12HR URI Administration - Exam General Appearance: awake alert Eye: anicteric sclera ENT: normocephalic atraumatic Neck: symmetric Heart: RRR Respiratory - other findings: fair air entry with transmitted sound and scatttered rhonchi Gastrointestinal: soft, non-tender, non-distended, normal bowel sounds Extremities: no edema Neurological - other findings: Right sided hemiparesis and expressive dysphasia noted. Hosp A/P (1) Acute metabolic encephalopathy Code(s): G93.41 - METABOLIC ENCEPHALOPATHY Status: Acute (2) Acute CVA (cerebrovascular accident) Code(s): I63.9 - CEREBRAL INFARCTION, UNSPECIFIED Status: Suspected (3) Right hemiparesis Code(s): G81.91 - HEMIPLEGIA, UNSPECIFIED AFFECTING RIGHT DOMINANT SIDE Status : Acute (4) Hypokalemia Code(s): E87.6 - HYPOKALEMIA Status: Acute (5) Carotid atherosclerosis Code(s): I65.29 - OCCLUSION AND STENOSIS OF UNSPECIFIED CAROTID ARTERY Status : Acute (6) Oropharyngeal dysphagia Code(s): R13.12 - DYSPHAGIA, OROPHARYNGEAL PHASE Status: Acute (7) Schizophrenia Code(s): F20.9 - SCHIZOPHRENIA, UNSPECIFIED Status: Acute (8) HTN (hypertension) Code(s): I10 - ESSENTIAL (PRIMARY) HYPERTENSION Status: Acute (9) Seizure Code(s): R56.9 - UNSPECIFIED CONVULSIONS Status: Acute (10) GERD (gastroesophageal reflux disease) Code(s): K21.9 - GASTRO-ESOPHAGEAL REFLUX DISEASE WITHOUT ESOPHAGITIS Status: Chronic (11) Seizure disorder Code(s): G40.909 - EPILEPSY, UNSP, NOT INTRACTABLE, WITHOUT STATUS EPILEPTICUS Status: Chronic (12) Tobacco abuse disorder Code(s): Z72.0 - TOBACCO USE Status: Acute (13) COPD with acute exacerbation Code(s): J44.1 - CHRONIC OBSTRUCTIVE PULMONARY DISEASE W (ACUTE) EXACERBATION Status: Acute (14) Cannabis abuse Code(s): F12.10 - CANNABIS ABUSE, UNCOMPLICATED Status: Acute (15) Encephalomalacia without cerebral infarction Code(s): G93.89 - OTHER SPECIFIED DISORDERS OF BRAIN Status: Acute - Plan Start Duonebs and inhale steroid for COPD exabertaion Restart lisinopril to get adequate BP control. Continue supportive care.PT/OT/UNBUNDLER MRI was negative for acute infarction. Continue asa and plavix as recommended by neurology. Discontinue IVF [place] oral intake advised Started nicotine patch
[2019-06-16] MEDS: Acetaminophen 325 MG TAB PO PRN ×2 (11:36→16:27)
[2019-06-16] MEDS: Atorvastatin Calcium 10 MG TAB PO SCH (21:12)
[2019-06-17 04:53] LABS: #Eosinphils 0.1 thou/uL (0.0-0.7); #Monocytes 0.7 thou/uL (0.11-0.59); #Neutrophils 5.3 thou/uL (1.40-6.50); %Basophils 0.4 % (0.0-1.0); %Eosinophils 1.5 % (0.0-10.0); %Lymphocytes 24.5 % (21.0-51.0); %Monocytes 8.7 % (0.0-10.0); %Neutrophils 64.9 % (42.0-75.0); Hemoglobin 13.4 g/dL (12.0-16.0); Mean Corpuscular HGB CONC 33.1 g/dL (32.0-36.0); Mean Corpuscular Hemoglobin 27.9 pg (27.0-31.0); Mean Corpuscular Volume 84.2 fL (78.0-98.0); Mean Platelet Volume 8.5 fL (7.4-10.4); Platelet Count 244 thou/uL (130-400); RBC Distribution Width 14.4 % (11.5-14.5); Red Blood Cell (RBC) Count 4.79 mill/uL (4.20-5.40); White Blood Cell (WBC) Count 8.2 thou/uL (4.8-10.8)
[2019-06-17 05:09] LABS: Anion Gap 11 mmol/L (10-20); BUN (Urea Nitrogen) 9 mg/dL (9.8-20.1); Calc. Creatinine Clearance 110 mL/min (70-130); Calcium 8.9 mg/dL (7.8-10.44); Carbon Dioxide 25 mmol/L (23-31); Chloride 96 mmol/L (98-107); Estimated GFR-MDRD Greater than 90; Glucose 106 mg/dL (80-115); Potassium 3.4 mmol/L (3.5-5.1); Sodium 129 mmol/L (136-145)
[2019-06-17] MEDS: levETIRAcetam In NaCl (Iso-Os) 1,500 MG in Premix Bag 1 BAG IVPB SCH ×3 (09:25→23:48)
[2019-06-17] MEDS: Aspirin 81 mg Enteric Coated Tablet PO SCH (09:27)
[2019-06-17] MEDS: Lisinopril 20 MG TAB PO SCH ×2 (09:27→21:59)
[2019-06-17] MEDS: Clopidogrel Bisulfate 75 MG TAB PO SCH (09:27)
[2019-06-17] MEDS: Famotidine/PF 20 mg/2ml Vial SLOW IVP SCH ×2 (09:28→21:58)
[2019-06-17] MEDS: Enoxaparin Sodium 40 MG/0.4 ML SYRINGE SC SCH (09:29)
[2019-06-17] MEDS: Nicotine 21 MG PATCH TD SCH (09:29)
--- NOTE | 2019-06-17 09:32 | PDOC.HOSPP ---
- Subjective Encounter Date: 06/17/19 Encounter Time: 09:30 Subjective: 63 y/o femal with prior CVA with residual right sided weakness admitted with acute onset of aphasia and worsening of right sided weakness. Awake but still with dysphasic. No new problem. - Objective Vital Signs & Weight: Vital Signs (12 hours) Temp Pulse Resp BP BP Pulse Ox 06/17/19 09:27 159/94 H 06/17/19 07:45 98.6 F 95 20 159/94 H 94 L 06/17/19 06:46 86 12 06/17/19 04:00 97.4 F L 86 20 139/84 94 L 06/17/19 00:19 142/86 H 06/17/19 00:00 99.6 F 102 H 18 174/110 H 93 L Weight Admit Weight 194 lb Weight 194 lb I&O: 06/16/19 06/17/19 06/18/19 06:59 06:59 06:59 Output Total 380 125 Balance -380 -125 Result Diagrams: 06/17/19 04:13 06/17/19 04:13 Hospitalist ROS - Medication Medications: Active Medications Generic Name Dose Route Start Last Admin Trade Name Freq PRN Reason Stop Dose Admin Acetaminophen 650 mg 06/14/19 23:13 06/16/19 16:27 Tylenol PO 650 mg Q4H PRN Administration Headache/Fever/Mild Pain (1-3) Acetaminophen 650 mg 06/14/19 23:13 06/15/19 12:54 Tylenol OR 650 mg Q4H PRN Administration Headache/Fever/Mild Pain (1-3) Albuterol/Ipratropium 3 ml 06/15/19 19:00 06/17/19 06:46 Duoneb NEB 3 ml QID-RT URI Administration Aspirin 81 mg 06/16/19 09:00 06/17/19 09:27 Ecotrin PO 81 mg DAILY URI Administration Atorvastatin Calcium 10 mg 06/15/19 21:00 06/16/19 21:12 Lipitor PO 10 mg HS URI Administration Clopidogrel Bisulfate 75 mg 06/16/19 09:00 06/17/19 09:27 Plavix PO 75 mg DAILY URI Administration Enoxaparin Sodium 40 mg 06/15/19 09:00 06/17/19 09:29 Lovenox SC 40 mg 0900 URI Administration Famotidine 20 mg 06/15/19 09:00 06/17/19 09:28 Pepcid SLOW IVP 20 mg Q12HR URI Administration Levetiracetam 1,500 mg/ Device 100 mls @ 200 mls/hr 06/14/19 21:00 06/17/19 09:25 IVPB 100 mls BID URI Administration Lisinopril 20 mg 06/16/19 09:00 06/17/19 09:27 Zestril PO 20 mg DAILY URI Administration Nicotine 21 mg 06/16/19 09:00 06/17/19 09:29 Nicoderm Patch TD 21 mg DAILY URI Administration Sodium Chloride 10 ml 06/15/19 09:00 06/17/19 07:41 Flush - Normal Saline IVF Not Given Q12HR URI - Exam General Appearance: awake alert Eye: anicteric sclera ENT: normocephalic atraumatic Neck: symmetric Heart: RRR Respiratory: no wheezes, no rales, no ronchi, normal chest expansion, no tachypnea Gastrointestinal: soft, non-tender, non-distended, normal bowel sounds Extremities: no edema Extremities - other findings: swam neck deformity of left ring finger noted Skin: no rashes Neurological: no new deficit Neurological - other findings: Right hemiparesis and expressive aphasia noted Hosp A/P (1) Acute CVA (cerebrovascular accident) Code(s): I63.9 - CEREBRAL INFARCTION, UNSPECIFIED Status: Suspected (2) Acute metabolic encephalopathy Code(s): G93.41 - METABOLIC ENCEPHALOPATHY Status: Acute (3) Right hemiparesis Code(s): G81.91 - HEMIPLEGIA, UNSPECIFIED AFFECTING RIGHT DOMINANT SIDE Status : Acute (4) Hypokalemia Code(s): E87.6 - HYPOKALEMIA Status: Acute (5) Carotid atherosclerosis Code(s): I65.29 - OCCLUSION AND STENOSIS OF UNSPECIFIED CAROTID ARTERY Status : Acute (6) Oropharyngeal dysphagia Code(s): R13.12 - DYSPHAGIA, OROPHARYNGEAL PHASE Status: Acute (7) Schizophrenia Code(s): F20.9 - SCHIZOPHRENIA, UNSPECIFIED Status: Acute (8) HTN (hypertension) Code(s): I10 - ESSENTIAL (PRIMARY) HYPERTENSION Status: Acute (9) Seizure Code(s): R56.9 - UNSPECIFIED CONVULSIONS Status: Acute (10) GERD (gastroesophageal reflux disease) Code(s): K21.9 - GASTRO-ESOPHAGEAL REFLUX DISEASE WITHOUT ESOPHAGITIS Status: Chronic (11) Seizure disorder Code(s): G40.909 - EPILEPSY, UNSP, NOT INTRACTABLE, WITHOUT STATUS EPILEPTICUS Status: Chronic (12) Tobacco abuse disorder Code(s): Z72.0 - TOBACCO USE Status: Acute (13) COPD with acute exacerbation Code(s): J44.1 - CHRONIC OBSTRUCTIVE PULMONARY DISEASE W (ACUTE) EXACERBATION Status: Acute (14) Cannabis abuse Code(s): F12.10 - CANNABIS ABUSE, UNCOMPLICATED Status: Acute (15) Encephalomalacia without cerebral infarction Code(s): G93.89 - OTHER SPECIFIED DISORDERS OF BRAIN Status: Acute (16) Hyponatremia Code(s): E87.1 - HYPO-OSMOLALITY AND HYPONATREMIA Status: Acute - Plan increase lisinopril to 20 bid Get urine and plasma osmolality replete serum potassium Continue Duonebs and inhale steroid for COPD exabertaion Continue supportive care.PT/OT/APPLICATIONS ANALYST Continue asa and plavix as recommended by neurology. [place] oral intake advised
[2019-06-17] MEDS: Potassium Chloride 20 MEQ TAB PO SCH ×2 (10:18→11:56)
--- NOTE | 2019-06-17 14:11 | CON ---
DATE OF CONSULTATION: REASON FOR CONSULTATION: SVT. HISTORY OF PRESENT ILLNESS: Ms. Mitchell is a 63-year-old woman with previous history of end-stage renal disease. She recently presented with right-sided weakness. During my visit, she appears confused. She continues to ramble the same statement. This is felt to be a new finding by the nurse. Recent MRI dated 06/15/2019 showed no acute findings with large region of left cerebral hemispheric encephalomalacia. No previous history of underlying coronary artery disease from findings in the chart. PAST MEDICAL HISTORY: Previous CVA, seizure disorder, chronic meningioma, hypertension, hyperlipidemia, COPD, acid reflux, appendectomy, BTL, cataract surgery. SOCIAL HISTORY: Positive marijuana use. Positive tobacco use. FAMILY HISTORY: Negative for CAD. ALLERGIES: HALDOL. MEDICATIONS: Include: 1. Aggrenox. 2. Pravastatin. 3. BuSpar. 4. Keppra. 5. Lisinopril. REVIEW OF SYSTEMS: Difficult to obtain. See above. PHYSICAL EXAMINATION: GENERAL: Patient is a pleasant woman who is in no acute distress. The patient appears their stated age. Mental status changes with not able to obtain a full history. VITAL SIGNS: Blood pressure 137/98, pulse 102, temperature 99.4. NEUROLOGIC: The patient is alert and oriented x3 with no focal neurologic deficits. HEENT: Sclerae without icterus. Mouth has moist mucous membranes with normal pallor. NECK: No JVD. Carotid upstroke brisk. No bruits bilaterally. LUNGS: Clear to auscultation with unlabored respirations. BACK: No scoliosis or kyphosis. CARDIAC: Regular rate and rhythm with normal S1 and S2. No S3 or S4 noted. No significant rubs, murmurs, thrills, or gallops noted throughout the precordium. PMI is not displaced. There is no parasternal heave. ABDOMEN: Soft, nontender, nondistended. No peritoneal signs present. No hepatosplenomegaly. No abnormal striae. EXTREMITIES: 2+ femoral and 2+ dorsalis pedis pulses. No cyanosis, clubbing, or edema. SKIN: No gross abnormalities. PERTINENT LABORATORY DATA: Telemetry monitoring did show two runs of SVT. Symptoms are unknown. Hemoglobin 13.4. Creatinine 0.7. IMPRESSION: 1. Supraventricular tachycardia. 2. Mental status changes. RECOMMENDATIONS: Nurse stated these were new findings. She will reach out to Dr. Castaneda now to assess the patient. From a CV standpoint, the patient did have an echo with Doppler that did show normal LVEF. Would add digoxin to help suppress SVT. If felt to be symptomatic, may proceed with a more aggressive approach, but given unknown whether truly symptomatic, we would recommend conservative therapy. May also consider calcium channel blockade. This will also help with her blood pressure. Otherwise, I have no further recommendations. Job ID: [id number]
[2019-06-17] MEDS: Acetaminophen 325 MG TAB PO PRN (17:22)
[2019-06-17] MEDS: Budesonide 0.5 MG/2 ML NEB INH SCH (18:52)
[2019-06-17] MEDS: Atorvastatin Calcium 10 MG TAB PO SCH (21:59)
[2019-06-17] MEDS: Digoxin 0.25 MG TAB PO SCH (22:19)
[2019-06-17] MEDS ORDERED: levETIRAcetam 500 mg/5 ml Oral Solution PO SCH (23:45)
[2019-06-18] MEDS: Digoxin 0.25 MG TAB PO SCH ×3 (01:55→13:56)
[2019-06-18 05:10] LABS: Anion Gap 10 mmol/L (10-20); BUN (Urea Nitrogen) 9 mg/dL (9.8-20.1); Calc. Creatinine Clearance 111 mL/min (70-130); Calcium 9.1 mg/dL (7.8-10.44); Carbon Dioxide 25 mmol/L (23-31); Chloride 97 mmol/L (98-107); Estimated GFR-MDRD Greater than 90; Glucose 100 mg/dL (80-115); Potassium 4.2 mmol/L (3.5-5.1); Sodium 128 mmol/L (136-145)
[2019-06-18 05:19] LABS: Eosinophils 4 % (0-10); Hemoglobin 12.8 g/dL (12.0-16.0); Lymphocytes 40 % (21-51); MDiff Complete? YES; Mean Corpuscular HGB CONC 32.7 g/dL (32.0-36.0); Mean Corpuscular Hemoglobin 27.6 pg (27.0-31.0); Mean Corpuscular Volume 84.3 fL (78.0-98.0); Mean Platelet Volume 8.3 fL (7.4-10.4); Monocytes 7 % (0-10); Neutrophil 49 % (42-75); Platelet Count 232 thou/uL (130-400); Platelet Morphology Comment Appears Adequate; RBC Distribution Width 14.4 % (11.5-14.5); Red Blood Cell (RBC) Count 4.63 mill/uL (4.20-5.40); White Blood Cell (WBC) Count 8.5 thou/uL (4.8-10.8)
--- NOTE | 2019-06-18 06:11 | PDOC.CPN ---
- Subjective Date: 06/18/19 Time: 13:15 Interval history: Pt more luciod today. No complaints. Pt with episode of WCT (slow) yesterday no symptoms - Objective Allergies/Adverse Reactions: Allergies Allergy/AdvReac Type Severity Reaction Status Date / Time haloperidol [From Haldol] Allergy Verified 06/14/19 22:16 haloperidol lactate Allergy Verified 06/14/19 22:16 [From Haldol] Visit Medications: Current Medications Acetaminophen (Tylenol) 650 mg PO Q4H PRN PRN Reason: Headache/Fever/Mild Pain (1-3) Last Admin: 06/17/19 17:22 Dose: 650 mg Acetaminophen (Tylenol) 650 mg MO Q4H PRN PRN Reason: Headache/Fever/Mild Pain (1-3) Last Admin: 06/15/19 12:54 Dose: 650 mg Albuterol/Ipratropium (Duoneb) 3 ml NEB QID-RT [facility] Last Admin: 06/17/19 18:53 Dose: 3 ml Aspirin (Ecotrin) 81 mg PO DAILY [facility] Last Admin: 06/17/19 09:27 Dose: 81 mg Atorvastatin Calcium (Lipitor) 10 mg PO HS [facility] Last Admin: 06/17/19 21:59 Dose: 10 mg Budesonide (Pulmicort Neb Solution) 0.5 mg INH BID-RT [facility] Last Admin: 06/17/19 18:52 Dose: 0.5 mg Clopidogrel Bisulfate (Plavix) 75 mg PO DAILY [facility] Last Admin: 06/17/19 09:27 Dose: 75 mg Digoxin (Lanoxin) 0.25 mg PO Q6H [facility] Stop: 06/18/19 14:01 Last Admin: 06/18/19 01:55 Dose: 0.25 mg Digoxin (Lanoxin) 0.125 mg PO DAILY [facility] Enoxaparin Sodium (Lovenox) 40 mg SC 0900 [facility] Last Admin: 06/17/19 09:29 Dose: 40 mg Famotidine (Pepcid) 20 mg SLOW IVP Q12HR [facility] Last Admin: 06/17/19 21:58 Dose: 20 mg Hydralazine HCl (Apresoline) 10 mg SLOW IVP Q4H PRN PRN Reason: BP > 220/110 Levetiracetam 1,500 mg/ Device 100 mls @ 200 mls/hr IVPB BID [facility] Last Admin: 10/06/19 23:48 Dose: Not Given Lisinopril (Zestril) 20 mg PO BID [facility] Last Admin: 06/17/19 21:59 Dose: 20 mg Lorazepam (Ativan) 1 mg SLOW IVP Q4H PRN PRN Reason: Seizures Nicotine (Nicoderm Patch) 21 mg TD DAILY [facility] Last Admin: 06/17/19 09:29 Dose: 21 mg Senna/Docusate Sodium (Senokot S) 2 tab PO BID PRN PRN Reason: Constipation Sodium Chloride (Flush - Normal Saline) 10 ml IVF Q12HR [facility] Last Admin: 06/17/19 21:59 Dose: 10 ml Sodium Chloride (Flush - Normal Saline) 10 ml IVF PRN PRN PRN Reason: Saline Flush Vital Signs & Weight: Vital Signs Temp Pulse Resp BP BP Pulse Ox 06/18/19 04:30 98 F 80 18 123/89 95 06/18/19 01:55 78 06/18/19 00:40 98.7 F 80 16 153/96 H 94 L 06/17/19 22:19 100 06/17/19 21:59 143/93 H 06/17/19 20:00 98.8 F 90 20 143/93 H 93 L 06/17/19 18:53 92 16 06/17/19 18:52 92 16 Admit Weight 194 lb Weight 194 lb - Physical Exam General: no apparent distress HEENT: normocephaly Neck: no masses, no bruit Cardiac: regular rate, regular rhythm Lungs: normal exam, no wheezes Neuro: grossly intact Abdomen: soft Extremities: no cyanosis, no clubbing Skin: rash Musculoskeletal: no pain - Labs Result Diagrams: 06/18/19 04:41 06/18/19 04:41 Troponin/CKMB Troponin I Less than 0.010 ng/mL (< 0.028) 06/14/19 18:28 - Assessment/Plan Assessment/Plan: SVT, WCT TIA MS changes Added digoxin, BB EF normal Neuro status per [place]bi No further recommendations. Fu in 1-2 weeks in office
[2019-06-18] MEDS: Budesonide 0.5 MG/2 ML NEB INH SCH ×2 (07:34→18:25)
[2019-06-18] MEDS: Aspirin 81 mg Enteric Coated Tablet PO SCH (09:15)
[2019-06-18] MEDS: Clopidogrel Bisulfate 75 MG TAB PO SCH (09:15)
[2019-06-18] MEDS: Enoxaparin Sodium 40 MG/0.4 ML SYRINGE SC SCH (09:15)
[2019-06-18] MEDS: Lisinopril 20 MG TAB PO SCH ×2 (09:15→22:17)
[2019-06-18] MEDS: Nicotine 21 MG PATCH TD SCH (09:15)
[2019-06-18] MEDS: Famotidine/PF 20 mg/2ml Vial SLOW IVP SCH ×2 (09:16→22:20)
[2019-06-18] MEDS: levETIRAcetam In NaCl (Iso-Os) 1,500 MG in Premix Bag 1 BAG IVPB SCH ×2 (09:16→22:17)
--- NOTE | 2019-06-18 12:24 | PQF ---
SAP Acid Loader Crystal Reports Winform SLOAN Su CHARLES DO [id number] [address] [place] [address] [id number] CLINICAL DOCUMENTATION IMPROVEMENT CLARIFICATION FORM: ICD-10 Updated PLEASE DO AN ADDENDUM TO THE PROGRESS NOTE WITH ANY DOCUMENTATION UPDATES OR ADDITIONS AND CARRY THROUGH TO DC SUMMARY. THANK YOU. DATE: 06/18/2019 ATTN:DR. Jarred KING Please exercise your independent, professional judgment in responding to the clarification form. Clinical indicators are provided on the bottom of this form for your review. Please check appropriate box(s) to clarify if the following diagnosis has been ruled in or ruled out: ACUTE CEREBROVASCULAR ACCIDENT [ ] Ruled in diagnosis [ ] Continue to treat [ ] Resolved [ x ] Ruled out diagnosis [ x ] Other diagnosis TIA [ ] Unable to determine In addition, please specify: Present on Admission (POA): [ x ] Yes [ ] No [ ] Unable to determine For continuity of documentation, please document condition throughout progress notes and discharge summary. Thank You. CLINICAL INDICATORS - SIGNS / SYMPTOMS / LABS 06/14 H&P (O'LUCINDA) A/P 1). ACUTE CHANGE IN ALTERED MENTAL STATUS. DIFFERENTIAL SEIZURES VERSUS TRANSIENT ISCHEMIC ATTACK, ESPECIALLY WITH DYSARTHRIA AND POSSIBLE ADDITIONAL CVA. CT OF THE BRAIN AND CTA ARE NEGATIVE FOR ANY ACUTE FINDINGS. WE WILL CONSULT NEUROLOGY. 2.) HISTORY OF CVA. 3). SEIZURE DISORDER. 06/15 PN (OBI) A/P: 1) ACUTE CEREBROVASCULAR ACCIDENT, AWAITING MRI 06/15 MRI BRAIN IMPRESSION: NO ACUTE TERRITORIAL INFARCTION OR MASS EFFECT. LARGE REGION OF LEFT CEREBRAL HEMISPHERIC ENCEPHALOMALACIA , AND INVOLVING ANTERIOR RIGHT TEMPORAL LOBE, SUPERIMPOSED UPON MICROVASCULAR ISCHEMIC DISEASE. 06/16 PN (OBI) A/P: 2). ACUTE CVA SUSPECTED , PLAN, MRI WAS NEGATIVE FOR ACUTE INFARCTION 06/17 PN (OBI) A/P : 1) ACUTE CVA, SUSPECTED 06/18 PN ( LANDAVERDE) A/P: TIA, SVT, MS CHANGE, PLAN: NEURO STATUS PER OBI RISK: SLURRED SPEECH, RIGHT ARM WEAKNESS, LEFT LEG WEAKNESS, APHASIA, HX OF CVA, RESIDUAL RT SIDED DEFICITS, HTN (H&P/O'LUCINDA) 06/14 TREATMENTS: BRAIN CT-06/14 NEUROLOGY CONSULT-06/15 BRAIN MRI-06/15 THANK YOU! WIN (This form is maintained as a part of the permanent medical record) 2014 [employer] All Rights Reserved MALIHA [email or web address] [phone] [email or web address]
--- NOTE | 2019-06-18 13:05 | PDOC.HOSPP ---
- Subjective Encounter Date: 06/18/19 Encounter Time: 13:00 Subjective: f/u for suspected TIA and R hemiparesis, dysphasia. Remains on dual anti- platelet therapy and Lipitor. - Objective Vital Signs & Weight: Vital Signs (12 hours) Temp Pulse Resp BP BP Pulse Ox 06/18/19 11:40 99.4 F 85 18 120/82 93 L 06/18/19 10:45 85 16 95 06/18/19 09:15 107 H 145/92 H 06/18/19 09:07 93 L 06/18/19 07:51 99 F 88 17 145/92 H 95 06/18/19 07:36 85 18 96 06/18/19 07:34 85 18 96 06/18/19 04:30 98 F 80 18 123/89 95 06/18/19 01:55 78 Weight Admit Weight 194 lb Weight 194 lb I&O: 06/17/19 06/18/19 06/19/19 06:59 06:59 06:59 Output Total 125 400 Balance -125 -400 Result Diagrams: 06/18/19 04:41 06/18/19 04:41 Radiology Reviewed by me: Yes (MRI brain - old L cerebral distribution encephalomalacia, no new changes) EKG Reviewed by me: Yes (Tele - SR) Hospitalist ROS - Medication Medications: Active Medications Generic Name Dose Route Start Last Admin Trade Name Freq PRN Reason Stop Dose Admin Acetaminophen 650 mg 06/14/19 23:13 06/17/19 17:22 Tylenol PO 650 mg Q4H PRN Administration Headache/Fever/Mild Pain (1-3) Acetaminophen 650 mg 06/14/19 23:13 06/15/19 12:54 Tylenol FL 650 mg Q4H PRN Administration Headache/Fever/Mild Pain (1-3) Albuterol/Ipratropium 3 ml 06/15/19 19:00 06/18/19 10:45 Duoneb NEB 3 ml QID-RT URI Administration Aspirin 81 mg 06/16/19 09:00 06/18/19 09:15 Ecotrin PO 81 mg DAILY URI Administration Atorvastatin Calcium 10 mg 06/15/19 21:00 06/17/19 21:59 Lipitor PO 10 mg HS URI Administration Budesonide 0.5 mg 06/17/19 18:30 06/18/19 07:34 Pulmicort Neb Solution INH 0.5 mg BID-RT URI Administration Clopidogrel Bisulfate 75 mg 06/16/19 09:00 06/18/19 09:15 Plavix PO 75 mg DAILY URI Administration Digoxin 0.25 mg 06/17/19 20:00 06/18/19 09:15 Lanoxin PO 06/18/19 14:01 0.25 mg Q6H URI Administration Enoxaparin Sodium 40 mg 06/15/19 09:00 06/18/19 09:15 Lovenox SC 40 mg 0900 URI Administration Famotidine 20 mg 06/15/19 09:00 06/18/19 09:16 Pepcid SLOW IVP 20 mg Q12HR URI Administration Levetiracetam 1,500 mg/ Device 100 mls @ 200 mls/hr 06/14/19 21:00 06/18/19 09:16 IVPB 100 mls BID URI Administration Lisinopril 20 mg 06/17/19 21:00 06/18/19 09:15 Zestril PO 20 mg BID URI Administration Nicotine 21 mg 06/16/19 09:00 06/18/19 09:15 Nicoderm Patch TD 21 mg DAILY URI Administration Sodium Chloride 10 ml 06/15/19 09:00 06/18/19 09:16 Flush - Normal Saline IVF 10 ml Q12HR URI Administration - Exam General - other findings: somnolent Eye: PERRL, anicteric sclera ENT: normocephalic atraumatic, no oropharyngeal lesions Neck: supple, symmetric, no JVD, no thyromegaly Heart: RRR, no gallops, no rubs, normal peripheral pulses Respiratory: no rales, no ronchi Respiratory - other findings: diminished in bases Gastrointestinal: soft, non-tender, non-distended, normal bowel sounds, no palpable masses Extremities: no cyanosis, no edema Skin: normal turgor, no lesions Neurological - other findings: R hemiparesis, dysphasia Musculoskeletal: generalized weakness Psychiatric: oriented to person Hosp A/P (1) TIA (transient ischemic attack) Code(s): G45.9 - TRANSIENT CEREBRAL ISCHEMIC ATTACK, UNSPECIFIED Status: Acute Plan: Suspected, continue dual anti-platelet therapy with ASA/Plavix, Lipitor, stroke protocol, SNF options (2) Acute metabolic encephalopathy Code(s): G93.41 - METABOLIC ENCEPHALOPATHY Status: Acute Plan: Multifactorial including underlying metabolic process, prior CVA, THC abuse (3) Cannabis abuse Code(s): F12.10 - CANNABIS ABUSE, UNCOMPLICATED Status: Chronic (4) Encephalomalacia without cerebral infarction Code(s): G93.89 - OTHER SPECIFIED DISORDERS OF BRAIN Status: Chronic Plan: MRI confirming stable findings (5) HTN (hypertension) Code(s): I10 - ESSENTIAL (PRIMARY) HYPERTENSION Status: Chronic Qualifiers: Hypertension type: essential hypertension Qualified Code(s): I10 - Essential (primary) hypertension (6) Hyponatremia Code(s): E87.1 - HYPO-OSMOLALITY AND HYPONATREMIA Status: Acute Plan: Worsening, avoid salt-wasters, encourage increased intake of regular diet (7) Right hemiparesis Code(s): G81.91 - HEMIPLEGIA, UNSPECIFIED AFFECTING RIGHT DOMINANT SIDE Status : Chronic Plan: Chronic, PT/OT, SNF options (8) Schizophrenia Code(s): F20.9 - SCHIZOPHRENIA, UNSPECIFIED Status: Chronic (9) Tobacco abuse disorder Code(s): Z72.0 - TOBACCO USE Status: Acute Plan: Tobacco cessation resources (10) Seizure disorder Code(s): G40.909 - EPILEPSY, UNSP, NOT INTRACTABLE, WITHOUT STATUS EPILEPTICUS Status: Chronic Plan: Continue Keppra 1500mg BID - Plan PT/OT, social worker clinical, speech therapy, DVT proph w/SCDs Stable currently CM for SNF options Continue ASA/Plavix Continue Keppra 1500mg BID PT for mobilization AM lab: BMP
[2019-06-18] MEDS: Atorvastatin Calcium 10 MG TAB PO SCH (22:14)
[2019-06-19 06:38] LABS: Anion Gap 12 mmol/L (10-20); BUN (Urea Nitrogen) 10 mg/dL (9.8-20.1); Calc. Creatinine Clearance 107 mL/min (70-130); Calcium 9.1 mg/dL (7.8-10.44); Carbon Dioxide 24 mmol/L (23-31); Chloride 102 mmol/L (98-107); Estimated GFR-MDRD Greater than 90; Glucose 98 mg/dL (80-115); Potassium 4.3 mmol/L (3.5-5.1); Sodium 134 mmol/L (136-145)
[2019-06-19] MEDS: Budesonide 0.5 MG/2 ML NEB INH SCH ×2 (07:21→19:42)
[2019-06-19] MEDS: Digoxin 0.125 MG TAB PO SCH (08:29)
[2019-06-19] MEDS: Clopidogrel Bisulfate 75 MG TAB PO SCH (08:29)
[2019-06-19] MEDS: levETIRAcetam In NaCl (Iso-Os) 1,500 MG in Premix Bag 1 BAG IVPB SCH (08:29)
[2019-06-19] MEDS: Enoxaparin Sodium 40 MG/0.4 ML SYRINGE SC SCH (08:29)
[2019-06-19] MEDS: Nicotine 21 MG PATCH TD SCH (08:29)
[2019-06-19] MEDS: Famotidine/PF 20 mg/2ml Vial SLOW IVP SCH (08:29)
[2019-06-19] MEDS: Lisinopril 20 MG TAB PO SCH ×2 (08:29→22:13)
[2019-06-19] MEDS: Aspirin 81 mg Enteric Coated Tablet PO SCH (08:29)
--- NOTE | 2019-06-19 15:15 | PDOC.HOSPP ---
- Subjective Encounter Date: 06/19/19 Encounter Time: 15:10 Subjective: f/u for suspected TIA with negative MRI on ASA/Plavix/Lipitor. Plan for HH options on d/c. No new issues reported. - Objective Vital Signs & Weight: Vital Signs (12 hours) Temp Pulse Pulse Pulse Resp BP BP 06/19/19 14:35 99 16 06/19/19 12:00 98.3 F 110 H 18 06/19/19 10:46 104 H 16 06/19/19 09:50 103 H 112 H 85/73 L 06/19/19 08:29 98 108/77 06/19/19 08:15 06/19/19 08:10 98.2 F 98 18 06/19/19 07:21 69 16 06/19/19 07:19 79 16 06/19/19 04:00 98.2 F 72 18 BP BP Pulse Ox 06/19/19 14:35 96 06/19/19 12:00 106/75 92 L 06/19/19 10:46 91 L 06/19/19 09:50 107/79 06/19/19 08:29 06/19/19 08:15 94 L 06/19/19 08:10 108/77 93 L 06/19/19 07:21 90 L 06/19/19 07:19 90 L 06/19/19 04:00 102/69 90 L Weight Admit Weight 194 lb Weight 194 lb I&O: 06/18/19 06/19/19 06/20/19 06:59 06:59 06:59 Intake Total 120 340 Output Total 400 700 Balance -400 120 -360 Result Diagrams: 06/18/19 04:41 06/19/19 05:42 EKG Reviewed by me: Yes (Tele - SR) Hospitalist ROS - Medication Medications: Active Medications Generic Name Dose Route Start Last Admin Trade Name Freq PRN Reason Stop Dose Admin Acetaminophen 650 mg 06/14/19 23:13 06/17/19 17:22 Tylenol PO 650 mg Q4H PRN Administration Headache/Fever/Mild Pain (1-3) Acetaminophen 650 mg 06/14/19 23:13 06/15/19 12:54 Tylenol [place] 650 mg Q4H PRN Administration Headache/Fever/Mild Pain (1-3) Albuterol/Ipratropium 3 ml 06/15/19 19:00 06/19/19 14:35 Duoneb NEB 3 ml QID-RT URI Administration Aspirin 81 mg 06/16/19 09:00 06/19/19 08:29 Ecotrin PO 81 mg DAILY URI Administration Atorvastatin Calcium 10 mg 06/15/19 21:00 06/18/19 22:14 Lipitor PO 10 mg HS URI Administration Budesonide 0.5 mg 06/17/19 18:30 06/19/19 07:21 Pulmicort Neb Solution INH 0.5 mg BID-RT URI Administration Clopidogrel Bisulfate 75 mg 06/16/19 09:00 06/19/19 08:29 Plavix PO 75 mg DAILY URI Administration Digoxin 0.125 mg 06/19/19 09:00 06/19/19 08:29 Lanoxin PO 0.125 mg DAILY URI Administration Enoxaparin Sodium 40 mg 06/15/19 09:00 06/19/19 08:29 Lovenox SC 40 mg 0900 URI Administration Famotidine 20 mg 06/15/19 09:00 06/19/19 08:29 Pepcid SLOW IVP 20 mg Q12HR URI Administration Levetiracetam 1,500 mg/ Device 100 mls @ 200 mls/hr 06/14/19 21:00 06/19/19 08:29 IVPB 100 mls BID URI Administration Lisinopril 20 mg 06/17/19 21:00 06/19/19 08:29 Zestril PO 20 mg BID URI Administration Nicotine 21 mg 06/16/19 09:00 06/19/19 08:29 Nicoderm Patch TD 21 mg DAILY URI Administration Sodium Chloride 10 ml 06/15/19 09:00 06/19/19 08:30 Flush - Normal Saline IVF 10 ml Q12HR URI Administration - Exam General Appearance: NAD Eye: PERRL, anicteric sclera ENT: normocephalic atraumatic, no oropharyngeal lesions Neck: supple, symmetric, no JVD, no thyromegaly Heart: RRR, no gallops, no rubs, normal peripheral pulses Respiratory: CTAB, no wheezes, no rales, no ronchi Gastrointestinal: soft, non-tender, non-distended, normal bowel sounds, no palpable masses Extremities: no cyanosis, no clubbing, no edema Skin: normal turgor, no lesions Neurological: no new deficit Neurological - other findings: R hemiparesis, dysphasia Musculoskeletal: generalized weakness Psychiatric: oriented to person, oriented to place Hosp A/P (1) TIA (transient ischemic attack) Code(s): G45.9 - TRANSIENT CEREBRAL ISCHEMIC ATTACK, UNSPECIFIED Status: Acute Plan: Suspected, continue ASA/Plavix, Lipitor, general stroke protocol, PT/OT for ambulation (2) Acute metabolic encephalopathy Code(s): G93.41 - METABOLIC ENCEPHALOPATHY Status: Acute Plan: Resolving, likely multifactorial (3) Cannabis abuse Code(s): F12.10 - CANNABIS ABUSE, UNCOMPLICATED Status: Chronic (4) Encephalomalacia without cerebral infarction Code(s): G93.89 - OTHER SPECIFIED DISORDERS OF BRAIN Status: Chronic (5) HTN (hypertension) Code(s): I10 - ESSENTIAL (PRIMARY) HYPERTENSION Status: Chronic Qualifiers: Hypertension type: essential hypertension Qualified Code(s): I10 - Essential (primary) hypertension (6) Hyponatremia Code(s): E87.1 - HYPO-OSMOLALITY AND HYPONATREMIA Status: Acute Plan: Resolving, continue to encourage regular po intake (7) Right hemiparesis Code(s): G81.91 - HEMIPLEGIA, UNSPECIFIED AFFECTING RIGHT DOMINANT SIDE Status : Chronic (8) Schizophrenia Code(s): F20.9 - SCHIZOPHRENIA, UNSPECIFIED Status: Chronic (9) Tobacco abuse disorder Code(s): Z72.0 - TOBACCO USE Status: Acute (10) Seizure disorder Code(s): G40.909 - EPILEPSY, UNSP, NOT INTRACTABLE, WITHOUT STATUS EPILEPTICUS Status: Chronic Plan: Change Keppra 1500mg po BID - Plan plan discussed w/ family, PT/OT, social insurance specialist, out of bed/ambulate Stable currently CM for HH options including PT/OT/[employer] Continue ASA/Plavix Continue Keppra 1500mg BID PT for mobilization Likely home in 24h
[2019-06-19] MEDS: Atorvastatin Calcium 10 MG TAB PO SCH (20:21)
[2019-06-19] MEDS: Famotidine 20 MG TAB PO SCH (20:22)
[2019-06-19] MEDS: levETIRAcetam 500 mg/5 ml Oral Solution PO SCH (20:23)
[2019-06-20] MEDS: Acetaminophen 325 MG TAB PO PRN (00:39)
[2019-06-20] MEDS: Budesonide 0.5 MG/2 ML NEB INH SCH (06:32)
[2019-06-20] MEDS: levETIRAcetam 500 mg/5 ml Oral Solution PO SCH (08:17)
[2019-06-20] MEDS: Nicotine 21 MG PATCH TD SCH (08:19)
[2019-06-20] MEDS: Aspirin 81 mg Enteric Coated Tablet PO SCH (08:21)
[2019-06-20] MEDS: Digoxin 0.125 MG TAB PO SCH (08:21)
[2019-06-20] MEDS: Famotidine 20 MG TAB PO SCH (08:22)
[2019-06-20] MEDS: Clopidogrel Bisulfate 75 MG TAB PO SCH (08:22)
[2019-06-20] MEDS: Lisinopril 20 MG TAB PO SCH (08:22)
[2019-06-20] MEDS: Enoxaparin Sodium 40 MG/0.4 ML SYRINGE SC SCH (08:23)
[2019-06-20 11:44] VITALS: BP 116/78; TEMP 98.2
--- NOTE | 2019-06-20 22:33 | DIS ---
DATE OF ADMISSION: 06/14/2019 DATE OF DISCHARGE: 06/20/2019 DISCHARGE DIAGNOSES: 1. Transient ischemic attack, suspected, resolved. 2. Acute metabolic encephalopathy, multifactorial, improved. 3. Cannabis abuse. 4. Encephalomalacia secondary to previous cerebrovascular accident, stable. 5. Hypertension, stable. 6. Supraventricular tachycardia, improved. 7. Hyponatremia, improved. 8. Right hemiparesis secondary to previous cerebrovascular accident, stable and chronic. 9. Schizophrenia. 10. Tobacco abuse. 11. Seizure disorder, chronic. CONSULTATIONS: 1. Dr. Sawant with Cardiology Service. 2. Dr. Bailon with Neurology Service. PERTINENT LABORATORY AND X-RAY FINDINGS: Sodium ranged between 128 to 136, potassium ranged between 3.4 to 4.3. Lactic acid level 1.7. Magnesium level ranged between 1.9 to 2.1. BNP 11.5. TSH 7.4. Urine drug screen dated 06/14/2019, positive for cannabinoids. Plasma alcohol level less than 10. CT of the brain without contrast dated 06/14/2019, showed no acute intracranial process. Large old infarct in the left middle cerebral artery territory. Moderate-sized old infarct in the right temporal lobe. CT angiogram of the [place] dated 06/14/2019, showed no thrombus or high-grade stenosis. Atherosclerotic changes of bilateral proximal internal carotid arteries. Portable chest x-ray dated 06/14/2019, showed no acute cardiopulmonary process. 2D transthoracic echocardiogram dated 06/15/2019, showed ejection fraction of 55% to 60%. Mild mitral and tricuspid valve regurgitation. Technically limited study. MRI of the brain dated 06/15/2019, showed no acute territorial infarct or mass effect. Large region of left cerebral hemispheric encephalomalacia with similar findings in the anterior right temporal lobe. HOSPITAL COURSE: The patient was initially admitted to the stroke unit after presenting with slurred speech, right arm and left lower extremity weakness with aphasia. The patient with a prior known history of CVA, presenting with stroke-like symptoms. The patient underwent general stroke protocol including CT and MRI modalities. No acute process was identified. The patient with multiple chronic changes of the brain as noted previously. The patient underwent general supportive management with metabolic screening showing evidence of cannabinoids on urine drug screen. The patient clinically stabilized and returned to baseline mental status function with resolution of all presenting symptoms by the time of discharge. The patient was evaluated by the Neurology Service, who recommended MRI imaging of the brain as noted previously. Recommendations also include transitioning to aspirin and Plavix as the patient was previously on Aggrenox. Due to the patient's comorbid conditions and presentation, the patient was deemed appropriate candidate for ongoing long-term care. The family and patient decided to pursue home health options to include physical and occupational therapy. I have examined the patient at the time of discharge and discussed followup instructions. The patient verbalized understanding and agreement, ready for discharge on 06/20/2019. DISCHARGE MEDICATIONS: 1. Enteric-coated aspirin 81 mg p.o. daily. 2. Plavix 75 mg p.o. daily. 3. Lisinopril 20 mg p.o. daily. 4. BuSpar 15 mg p.o. b.i.d. 5. Lisinopril 20 mg p.o. daily. 6. Pravachol 40 mg p.o. at bedtime. 7. Digoxin 0.125 mg p.o. daily. 8. Keppra 1500 mg p.o. b.i.d. 9. Toprol-XL 25 mg p.o. daily. FOLLOWUP: The patient may follow up with her primary care provider, Dr. Blanca Rose. The patient will follow up with Dr. Gerard Sawant in 2 to 3 weeks secondary to supraventricular tachycardia. CONDITION ON DISCHARGE: Fair. ACTIVITY: Ad-rehan. Recommend home health with physical and occupational therapy. Fall risk precautions. DIET: Heart healthy. CODE STATUS: Full. DISPOSITION: Discharged home with home health services including physical, occupational, and speech therapy. TIME SPENT: Total time preparing and coordinating discharge, 35 minutes. Job ID: [id number]
--- NOTE | 2019-06-21 05:36 | PQF ---
SAP Attendant Child Activity Crystal Reports Winform Viewer SLOAN WANG CHELSEY DE PAZ [id number] [facility] [place] [id number] CLINICAL DOCUMENTATION CLARIFICATION FORM: POST DISCHARGE Addendum to original discharge summary date: ____ Late entry note date: __ DATE: 06/21/19 ATTN: Chelsey Marcelo Please exercise your independent, professional judgment in responding to the clarification form. Clinical indicators are provided on the bottom of this form for your review Can you please further specify the relationship of TIA and stenosis based on the clinical indicators below? Please check appropriate box(s): TIA TYPE: [ x ] TIA Stenosis / Syndrome related to: [ ] Carotid Artery [ x ] Other TIA [ ] Other diagnosis please specify [ ] Unable to determine In addition, please specify: Present on Admission (POA): [ x ] Yes [ ] No [ ] Unable to determine For continuity of documentation, please document condition throughout progress notes and discharge summary. Thank You. CLINICAL INDICATORS - SIGNS / SYMPTOMS / LABS CT Angiogram Brain 06/14 "Atherosclerosis of bilateral proximal internal carotid arteries, causing mild stenosis on the left and minimal stenosis on the right" ED Notes 06/14 "presents for evaluation of motor deficits, slurred speech, right arm weakness, left leg weakness and aphasia" HP 06/14 "acute change in altered mental status" Physician Documentation 06/18 "Acute CVA ruled out" DS 06/20 "TIA suspected, resolved" RISK FACTORS 63 years old female- ED Notes 06/14- Old CVA-ED Notes 06/14 HTN- ED Notes 06/14 Seizure disorder-ED Notes 06/14 Hyperlipidemia- HP 06/14 Stenosis of carotid artery- PN 06/15 Smoker-PN 06/15 Metabolic encephalopathy-PN 06/16- Cannabis abuse-DS 06/20- TREATMENT: Brain CT-Collected 06/14 Neurology consult-HP 06/14 IVF-PN 06/15 Brain MRI-Collected 06/15 Aggrenox 1cap Oral-NOV 19 Lipitor 10mg Oral-NOV 19 Plavix 75mg Oral-NOV 19 (This form is maintained as a part of the permanent medical record) 2014 [employer]. All Rights Reserved [email or web address] [not provided] MTDD
--- NOTE | 2019-06-21 05:41 | PQF ---
SAP Head Setter Crystal Reports Winform Viewer SLOAN WANG CHELSEY DE PAZ [id number] [facility] [place] [id number] CLINICAL DOCUMENTATION CLARIFICATION FORM: POST DISCHARGE Addendum to original discharge summary date: ____ Late entry note date: __ Patient never had ESRD. Thanks DATE: 06/21/19 ATTN: Chelsey Marcelo Please exercise your independent, professional judgment in responding to the clarification form. Clinical indicators are provided on the bottom of this form for your review Can you please further specify if ESRD ins ruled in or ruled out? ESRD [ ] Ruled in diagnosis [ x ] Ruled out diagnosis [ ] Cannot rule out diagnosis [ ] Other diagnosis please specify [ ] Unable to determine In addition, please specify: Present on Admission (POA): [ ] Yes [ x ] No [ ] Unable to determine For continuity of documentation, please document condition throughout progress notes and discharge summary. Thank You. CLINICAL INDICATORS - SIGNS / SYMPTOMS / LABS Consult 06/17- ESRD ED Notes 06/14 "presents for evaluation of motor deficits, slurred speech, right arm weakness, left leg weakness and aphasia" HP 06/14 "acute change in altered mental status" PN 06/16-Metabolic encephalopathy PN 06/19 "generalized weakness" Labs: BUN 06/17=9 06/18=9 06/19=10 Labs: Creatinine 06/17=0.71 06/18=0.70 06/19=0.73 Labs: GFR 06/17=greater than 90 06/18=greater than 90 06/19=greater than 90 RISK FACTORS 63 years old female-ED Notes 06/14 Old CVA-ED Notes 06/14 HTN-ED Notes 06/14- Hyperlipidemia-HP 06/14 Smoker-PN 06/15 Cannabis abuse- DS 06/20 TREATMENTS IVF-PN 06/15 Lipitor 10mg Oral-MAR 06/15 (This form is maintained as a part of the permanent medical record) 2014 [employer] All Rights Reserved [email or web address] [not provided] MTDD
== END 2019-06-20 12:36 | disposition home health service (06) | DRG 69 ==
LOC: ERS 18:19 → 2SE 21:50
PROVIDERS: ADMIT Hospitalist; ATTEND Hospitalist
DX: G45.8 Other transient cerebral ischemic attacks and related syndromes (principal); G93.41 Metabolic encephalopathy; I69.351 Hemiplegia and hemiparesis following cerebral infarction affecting right dominant side; R47.01 Aphasia; J44.1 Chronic obstructive pulmonary disease with (acute) exacerbation; E87.1 Hypo-osmolality and hyponatremia; I47.1 Supraventricular tachycardia; R40.2412 Glasgow coma scale score 13-15, at arrival to emergency department; I10 Essential (primary) hypertension; F20.9 Schizophrenia, unspecified; F17.210 Nicotine dependence, cigarettes, uncomplicated; F31.9 Bipolar disorder, unspecified; E78.5 Hyperlipidemia, unspecified; K21.9 Gastro-esophageal reflux disease without esophagitis; D32.9 Benign neoplasm of meninges, unspecified; E87.6 Hypokalemia; G40.909 Epilepsy, unspecified, not intractable, without status epilepticus; G93.89 Other specified disorders of brain; F12.10 Cannabis abuse, uncomplicated; I69.398 Other sequelae of cerebral infarction; Z98.51 Tubal ligation status; Z90.49 Acquired absence of other specified parts of digestive tract; Z88.8 Allergy status to other drugs, medicaments and biological substances; Z98.42 Cataract extraction status, left eye; Z98.41 Cataract extraction status, right eye; Z79.899 Other long term (current) drug therapy; F41.9 Anxiety disorder, unspecified; I65.23 Occlusion and stenosis of bilateral carotid arteries; I08.1 Rheumatic disorders of both mitral and tricuspid valves
CPT/HCPCS: 36415; 36416; 51701; 70450; 70496; 70498; 70551; 71045; 80048; 80053; 80306; 80307; 81003; 82550; 83605; 83735; 83880; 83930; 83935; 84300; 84443; 84484; 85025; 85610; 85730; 93005; 93306; 94640; 94760; J1650; J1953; J3480; J7620; J7626; Q9966; S0028

== ENCOUNTER 2019-06-29 10:52 | Emergency (ER) | payer MEDICARE ==
[2019-06-29 11:36] LABS: #Basophils 0.1 thou/uL (0.0-0.2); #Eosinphils 0.1 thou/uL (0.0-0.7); #Monocytes 0.6 thou/uL (0.11-0.59); %Basophils 0.9 % (0.0-1.0); %Eosinophils 1.2 % (0.0-10.0); %Lymphocytes 22.5 % (21.0-51.0); %Monocytes 7.1 % (0.0-10.0); %Neutrophils 68.3 % (42.0-75.0); Hemoglobin 12.1 g/dL (12.0-16.0); Mean Corpuscular HGB CONC 31.9 g/dL (32.0-36.0); Mean Corpuscular Hemoglobin 27.3 pg (27.0-31.0); Mean Corpuscular Volume 85.6 fL (78.0-98.0); Mean Platelet Volume 7.5 fL (7.4-10.4); Platelet Count 390 thou/uL (130-400); RBC Distribution Width 14.8 % (11.5-14.5); Red Blood Cell (RBC) Count 4.43 mill/uL (4.20-5.40); White Blood Cell (WBC) Count 8.8 thou/uL (4.8-10.8)
--- NOTE | 2019-06-29 11:41 | RAD ---
PORTABLE CHEST 1 VIEW: Date: 06/29/19 Time: 1115 hours HISTORY: Chest pain. FINDINGS/IMPRESSION: Comparison made with exam of 06/14/19. The heart size is enlarged. The aorta is tortuous. No lobar consolidation, pneumothoraces, can pulm onary edema, or large effusions are seen. POS: TPC
[2019-06-29 12:03] LABS: ALT (SGPT) 8 U/L (8-55); AST (SGOT) 12 U/L (5-34); Albumin 3.7 g/dL (3.4-4.8); Alkaline Phosphatase 71 U/L (40-110); Anion Gap 10 mmol/L (10-20); BUN (Urea Nitrogen) 6 mg/dL (9.8-20.1); Bilirubin, Total 0.3 mg/dL (0.2-1.2); Calc. Creatinine Clearance 0 mL/min (70-130); Calcium 9.5 mg/dL (7.8-10.44); Carbon Dioxide 28 mmol/L (23-31); Chloride 104 mmol/L (98-107); Estimated GFR-MDRD Greater than 90; Globulin 3.4 g/dL (2.4-3.5); Glucose 81 mg/dL (80-115); Potassium 3.5 mmol/L (3.5-5.1); Protein, Total 7.1 g/dL (6.0-8.3); Sodium 138 mmol/L (136-145)
[2019-06-29 14:33] LABS: Bilirubin Negative (Negative); Blood, Urine Negative (Negative); Clarity Clear (Clear); Glucose, Urine (Dipstick) Normal (Negative); Leukocyte Negative Leu/uL (Negative); Nitrite Negative (Negative); Protein, Urine (Dipstick) Negative (Neg-Trace)
[2019-06-29 14:44] LABS: Amphetamine Not Detected (NotDetected); Barbiturates Screen Not Detected (NotDetected); Benzodiazepine Screen Not Detected (NotDetected); Cocaine Metabolite Screen Not Detected (NotDetected); Medtox Control Line Valid? VALID (VALID); Medtox Reader # READER 1; Methadone Not Detected (NotDetected); Methamphetamine Not Detected (NotDetected); Opiate Screen Not Detected (NotDetected); Oxycodone Screen Not Detected (NotDetected); Phencyclidine (PCP) Not Detected (NotDetected); THC/Cannabinoid Screen Not Detected (NotDetected); Tricyclic Screen Not Detected (NotDetected)
--- NOTE | 2019-06-30 14:07 | EKG ---
Test Reason : Blood Pressure : / mmHG Vent. Rate : 098 BPM Atrial Rate : 098 BPM P-R Int : 168 ms QRS Dur : 080 ms QT Int : 364 ms P-R-T Axes : 043 -23 019 degrees QTc Int : 464 ms Normal sinus rhythm Voltage criteria for left ventricular hypertrophy Abnormal ECG Confirmed by KARY MORTON ([id number]), senior technical editor UYEN KENNEDY ([id number]) on 06/30/2019 2:06:55 PM Referred By: Confirmed By:KARY MORTON
== END 2019-06-29 15:11 | disposition home or self-care (01) ==
LOC: ERS 10:52
DX: R07.9 Chest pain, unspecified (principal); I10 Essential (primary) hypertension; F20.9 Schizophrenia, unspecified; F31.9 Bipolar disorder, unspecified; F17.210 Nicotine dependence, cigarettes, uncomplicated; Z86.73 Personal history of transient ischemic attack (TIA), and cerebral infarction without residual deficits; Z79.899 Other long term (current) drug therapy; Z85.841 Personal history of malignant neoplasm of brain
CPT/HCPCS: 36415; 51701; 71045; 80053; 80306; 81003; 84484; 85025; 93005; A4353

== ENCOUNTER 2019-08-15 20:14 | Inpatient (IN) | payer MEDICARE ==
--- NOTE | 2019-08-15 20:25 | CT ---
Exam: Head CT without contrast HISTORY: History of right-sided paralysis. Level 2 stroke. Aphasia. COMPARISON: 06/14/2019 FINDINGS: Hemorrhage: No intraparenchymal hemorrhage or extra-axial hematoma. Brain parenchyma: Encephalomalacia with gliosis involving the left frontal lobe and right temporal lo be unchanged from the prior exam. Remote insult is suspected. The remainder of the cerebrum demonstrates preservation of cortical alanis-white matter differentiation. White matter hypodensities d ue to chronic small vessel ischemic change. Ventricular system: Ventricles and sulci are patent and symmetric. Calvarium: Intact. Sinuses and mastoid air cells: Adequate aeration. IMPRESSION: 1. No acute intracranial process 2. Encephalomalacia due to remote insult along the right temporal lobe and left frontal lobe, similar to the previous exam. Results of study discussed with Dr. Rushing 08/15/2019 at 8:24 PM Code CR Transcribed Date/Time: 08/15/2019 8:46 PM
[2019-08-15 20:44] LABS: #Basophils 0.1 thou/uL (0.0-0.2); #Eosinphils 0.1 thou/uL (0.0-0.7); #Lymphocytes 2.6 thou/uL (1.20-3.40); #Monocytes 0.6 thou/uL (0.11-0.59); #Neutrophils 4.5 thou/uL (1.40-6.50); %Basophils 1.1 % (0.0-1.0); %Eosinophils 1.5 % (0.0-10.0); %Lymphocytes 33.3 % (21.0-51.0); %Neutrophils 57.2 % (42.0-75.0); Mean Corpuscular HGB CONC 32.7 g/dL (32.0-36.0); Mean Corpuscular Hemoglobin 27.7 pg (27.0-31.0); Mean Corpuscular Volume 84.7 fL (78.0-98.0); PTT 26.4 SEC (22.9-36.1); Platelet Count 276 thou/uL (130-400); Prothrombin Time 13.1 SEC (12.0-14.7); RBC Distribution Width 13.9 % (11.5-14.5); Red Blood Cell (RBC) Count 4.68 mill/uL (4.20-5.40); White Blood Cell (WBC) Count 7.8 thou/uL (4.8-10.8)
[2019-08-15 20:59] LABS: ALT (SGPT) 8 U/L (8-55); AST (SGOT) 15 U/L (5-34); Albumin 4.2 g/dL (3.4-4.8); Alkaline Phosphatase 70 U/L (40-110); Anion Gap 11 mmol/L (10-20); BUN (Urea Nitrogen) 10 mg/dL (9.8-20.1); Bilirubin, Total 0.6 mg/dL (0.2-1.2); CK (CPK) 130 U/L (29-168); Calc. Creatinine Clearance 0 mL/min (70-130); Carbon Dioxide 29 mmol/L (23-31); Chloride 101 mmol/L (98-107); Estimated GFR-MDRD 90; Globulin 3.9 g/dL (2.4-3.5); Glucose 106 mg/dL (80-115); Protein, Total 8.1 g/dL (6.0-8.3); Sodium 138 mmol/L (136-145)
[2019-08-15 21:02] LABS: Potassium 2.9 mmol/L (3.5-5.1)
[2019-08-15 21:04] LABS: Calcium 9.9 mg/dL (7.8-10.44)
[2019-08-15] MEDS ORDERED: Potassium Chloride 40 MEQ in Sodium Chloride 0.9% 250 ML 250 ML IVPB SCH (22:00)
[2019-08-15] MEDS ORDERED: Lorazepam 2 MG/ML VIAL ONE (22:31)
[2019-08-15] MEDS ORDERED: Aspirin Chewable 81 MG TAB ONE (22:36)
[2019-08-15] MEDS ORDERED: levETIRAcetam In NaCl (Iso-Os) 1,000 MG in Premix Bag 1 BAG IVPB SCH (22:45)
[2019-08-15] MEDS ORDERED: Aspirin 300 MG Suppository ONE (23:40)
[2019-08-16 00:16] LABS: Troponin I Less than 0.010 ng/mL (< 0.028)
[2019-08-16 01:26] VITALS: BMI 29.4
[2019-08-16 03:47] LABS: Troponin I Less than 0.010 ng/mL (< 0.028)
--- NOTE | 2019-08-16 07:09 | PDOC.HHP ---
Hospitalist HPI - History of Present Illness aphasia History of Present Illness: Patient is a 63 year old female with PMH of CVA w/ residual R sided defects, seizure disorder, chronic meningioma, HTN, dyslipidemia, COPD, GERD who presented to ED after developing aphasia, patinet with previous CVA and similar symptoms in june which resolved, now patient aphasic and having hard time getting words out, in ED was deemed not TPA candidate, CT head without acute processes, no seizure activity noted, admitted to HIT service, patient very drowsy due to ativan and nodding off during interview. Hospitalist ROS - Review of Systems ROS unobtainable: due to mental status (recieved ativan and very sleepy and wakes up and then falls asleep again) Hospitalist History - Past Medical History Other Medical History: CVA w/ residual R sided defects, seizure disorder, chronic meningioma, HTN, dyslipidemia, COPD, GERD - Past Surgical History Past Surgical History: reports: Appendectomy, Cataract Removal, Tubal Ligation - Family History Family History: reports: no pertinent history - Social History Smoking Status: Current every day smoker Alcohol: reports: Rare Drugs: reports: marijuana - Exam General Appearance: NAD, awake alert General - other findings: sleeping but rousable, confused, aphasic Eye: PERRL, anicteric sclera ENT: normocephalic atraumatic, moist mucosa Neck: supple, no JVD Heart: RRR, no murmur, no gallops, no rubs Respiratory: CTAB, no wheezes, no rales Gastrointestinal: soft, non-tender, non-distended, normal bowel sounds Extremities: no cyanosis, no clubbing, no edema Skin: no lesions, no rashes Neurological - other findings: aphasia (new), R sided weakness (chronic) Musculoskeletal: normal tone Psychiatric - other findings: unable to evaluate Hospitalist Results - Labs Result Diagrams: 08/15/19 20:18 08/15/19 20:18 Lab results: WBC 7.8 thou/uL (4.8-10.8) 08/15/19 20:18 Hgb 13.0 g/dL (12.0-16.0) 08/15/19 20:18 Hct 39.6 % (36.0-47.0) 08/15/19 20:18 MCV 84.7 fL (78.0-98.0) 08/15/19 20:18 Plt Count 276 thou/uL (130-400) 08/15/19 20:18 Neutrophils % 57.2 % (42.0-75.0) 08/15/19 20:18 Sodium 138 mmol/L (136-145) 08/15/19 20:18 Potassium 2.9 mmol/L (3.5-5.1) L* 08/15/19 20:18 Chloride 101 mmol/L (98-107) 08/15/19 20:18 Carbon Dioxide 29 mmol/L (23-31) 08/15/19 20:18 BUN 10 mg/dL (9.8-20.1) 08/15/19 20:18 Creatinine 0.78 mg/dL (0.6-1.1) 08/15/19 20:18 Glucose 106 mg/dL (80-115) 08/15/19 20:18 Calcium 9.9 mg/dL (7.8-10.44) 08/15/19 20:18 Total Bilirubin 0.6 mg/dL (0.2-1.2) 08/15/19 20:18 AST 15 U/L (5-34) 08/15/19 20:18 ALT 8 U/L (8-55) 08/15/19 20:18 Alkaline Phosphatase 70 U/L (40-110) 08/15/19 20:18 Creatine Kinase 130 U/L (29-168) 08/15/19 20:18 Troponin I Less than 0.010 ng/mL (< 0.028) 08/16/19 03:15 Serum Total Protein 8.1 g/dL (6.0-8.3) 08/15/19 20:18 Albumin 4.2 g/dL (3.4-4.8) 08/15/19 20:18 Hospitalist H&P A/P - Plan Plan: Patient is a 63 year old female with PMH of CVA w/ residual R sided defects, seizure disorder, chronic meningioma, HTN, dyslipidemia, COPD, GERD who presented to ED after developing aphasia # acute aphasia - stroke order set, continue statin and ASA - consult neurology - NPO, speech consult - MRI brain, had CT without acute findings # CVA w/ residual R sided defects - reportedly in ED family said these were unchanged. neuro workup as above # seizure disorder - resume keppra, no epileptiform activity reported # chronic meningioma - noted, outpatient follow up, follow MRI ordered today # HTN - resume home meds, permissive HTN # dyslipidemia - statin # COPD - no wheezing on my exam # GERD - PPI # hypokalemia - replete PRN, daily BMP
[2019-08-16] MEDS ORDERED: Labetalol HCl 100 MG/20 ML VIAL SLOW IVP PRN (07:13)
[2019-08-16] MEDS ORDERED: Enalaprilat Dihydrate 1.25 MG/ML VIAL SLOW IVP PRN (07:13)
[2019-08-16] MEDS ORDERED: hydrALAZINE 20 MG/ML VIAL SLOW IVP PRN (07:13)
--- NOTE | 2019-08-16 09:24 | MRI ---
MRI BRAIN WITHOUT CONTRAST: HISTORY: Aphasia COMPARISON: 06/15/2019 CORRELATION: CT scan from 08/15/2019. FINDINGS: No restricted diffusion is seen. There are multiple foci of T2 prolongation in the periventricular wh ite matter, consistent with chronic small vessel ischemic disease. Gliosis of the right anterior temporal lobe and a large area of encephalomalacia in the left cerebral hemisphere are stable The shmuel tricular size is stable and the basilar cisterns are patent. No evidence of acute infarct, hemorrhage, midline shift or abnormal extra-axial fluid collections is seen. . The visualized paranasal sinuses and mastoid air cells are well-aerated. IMPRESSION: No evidence of acute intracranial process.
[2019-08-16] MEDS: Enoxaparin Sodium 40 MG/0.4 ML SYRINGE SC SCH (09:29)
[2019-08-16] MEDS: Digoxin 0.125 MG TAB PO SCH (09:30)
[2019-08-16] MEDS: levETIRAcetam 500 MG TAB PO SCH ×2 (09:30→20:33)
[2019-08-16] MEDS: busPIRone HCl 10 MG TAB PO SCH ×2 (09:30→20:34)
[2019-08-16] MEDS: Aspirin 81 mg Enteric Coated Tablet PO SCH (09:30)
[2019-08-16] MEDS: Senokot S 8.6-50 MG TAB PO SCH ×2 (09:32→20:33)
[2019-08-16] MEDS: Lisinopril 20 MG TAB PO SCH (09:32)
[2019-08-16] MEDS: Clopidogrel Bisulfate 75 MG TAB PO SCH (09:32)
--- NOTE | 2019-08-16 14:35 | PDOC.HOSPP ---
- Subjective Encounter Date: 08/16/19 Encounter Time: 10:15 Subjective: has trouble speaking and difficulty finding words, is getting frustrated that she cant talk d/w daughter , she was found biting her lips, confused and lethargic at home prior to arrival here she normally has some difficulty speaking but completes sentences and one can understand well what she talks per daughter she was diagnosed with silent seizure in [facility], is compliant with meds including keppra. she ambulates with a quad cane inside house, has no trouble eating per daughter. - Objective Vital Signs & Weight: Vital Signs (12 hours) Temp Pulse Pulse Pulse Resp BP BP 08/16/19 12:15 98.1 F 78 16 08/16/19 11:20 77 81 130/69 08/16/19 11:16 77 81 130/69 08/16/19 09:32 138/79 08/16/19 09:30 81 08/16/19 08:00 08/16/19 07:14 98.5 F 89 20 BP BP Pulse Ox 08/16/19 12:15 128/72 97 08/16/19 11:20 135/73 08/16/19 11:16 135/73 08/16/19 09:32 08/16/19 09:30 08/16/19 08:00 96 08/16/19 07:14 138/79 96 Weight Admit Weight 187 lb 11.2 oz Weight 187 lb 11.2 oz Result Diagrams: 08/15/19 20:18 08/15/19 20:18 Hospitalist ROS - Medication Medications: Active Medications Generic Name Dose Route Start Last Admin Trade Name Isa PRN Reason Stop Dose Admin Aspirin 81 mg 08/16/19 09:00 08/16/19 09:30 Ecotrin PO 81 mg DAILY URI Administration Buspirone HCl 15 mg 08/16/19 09:00 08/16/19 09:30 Buspar PO 15 mg BID URI Administration Clopidogrel Bisulfate 75 mg 08/16/19 09:00 08/16/19 09:32 Plavix PO 75 mg DAILY URI Administration Digoxin 0.125 mg 08/16/19 09:00 08/16/19 09:30 Lanoxin PO 0.125 mg DAILY URI Administration Enoxaparin Sodium 40 mg 08/16/19 09:00 08/16/19 09:29 Lovenox SC 40 mg 0900 URI Administration Levetiracetam 1,500 mg 08/16/19 09:00 08/16/19 09:30 Keppra PO 1,500 mg BID URI Administration Lisinopril 20 mg 08/16/19 09:00 08/16/19 09:32 Zestril PO 20 mg DAILY URI Administration Pantoprazole Sodium 40 mg 08/16/19 09:00 08/16/19 09:32 Protonix PO 40 mg DAILY URI Administration Senna/Docusate Sodium 1 tab 08/16/19 09:00 08/16/19 09:32 Senokot S PO 1 tab BID URI Administration - Exam General Appearance: awake alert Eye: PERRL, anicteric sclera ENT: no oropharyngeal lesions, moist mucosa Neck: supple, no JVD Heart: RRR, no murmur Respiratory: no wheezes, no rales Gastrointestinal: soft, non-tender, non-distended, normal bowel sounds Extremities: no cyanosis, no edema Neurological - other findings: left hemiplegia upper 0/5, lower 2-3/5, moves right extre freely Hosp A/P (1) Breakthrough seizure Code(s): G40.919 - EPILEPSY, UNSP, INTRACTABLE, WITHOUT STATUS EPILEPTICUS Status: Acute (2) Seizure disorder Code(s): G40.909 - EPILEPSY, UNSP, NOT INTRACTABLE, WITHOUT STATUS EPILEPTICUS Status: Chronic (3) Anemia, normocytic normochromic Code(s): D64.9 - ANEMIA, UNSPECIFIED Status: Chronic (4) Anxiety and depression Code(s): F41.8 - OTHER SPECIFIED ANXIETY DISORDERS Status: Chronic (5) Dyslipidemia Code(s): E78.5 - HYPERLIPIDEMIA, UNSPECIFIED Status: Chronic (6) Encephalomalacia without cerebral infarction Code(s): G93.89 - OTHER SPECIFIED DISORDERS OF BRAIN Status: Chronic (7) GERD (gastroesophageal reflux disease) Code(s): K21.9 - GASTRO-ESOPHAGEAL REFLUX DISEASE WITHOUT ESOPHAGITIS Status: Chronic (8) H/O: CVA (cerebrovascular accident) Code(s): Z86.73 - PRSNL HX OF TIA (TIA), AND CEREB INFRC W/O RESID DEFICITS Status: Chronic (9) HTN (hypertension) Code(s): I10 - ESSENTIAL (PRIMARY) HYPERTENSION Status: Chronic Qualifiers: Hypertension type: essential hypertension Qualified Code(s): I10 - Essential (primary) hypertension (10) Schizophrenia Code(s): F20.9 - SCHIZOPHRENIA, UNSPECIFIED Status: Chronic Qualifiers: Schizophrenia type: unspecified Qualified Code(s): F20.9 - Schizophrenia, unspecified - Plan eeg, neuro consultation MRI shows no ac cva, has old cva with encephalomalacia, likely cause of her seizures add dilantin er 300mg qhs to keppra 1500mg bid, keppra levels continue speech, OT/PT eval, ambulate as tolerated, oral feeding per speech adv continue home meds asp, plavix, lipitor, toprol xl, lisinopril, dig ?afib, buspar will f/u
[2019-08-16] MEDS ORDERED: Atorvastatin Calcium 10 MG TAB PO SCH (21:00)
--- NOTE | 2019-08-16 23:26 | CON ---
DATE OF CONSULTATION: 08/16/2019 HISTORY OF PRESENT ILLNESS: Ms. Mitchell has a known history of stroke with secondary seizures. She came in for a rule out stroke once again, same thing occurred in June. She apparently was having some repetitive speech earlier today. This seems to have cleared up. New MRI did not show any acute changes compared to her prior study, which showed an old left MCA and right temporal stroke. Her EKG shows a sinus rhythm. Her lab work was unremarkable. Recent CT angiogram was unremarkable as well. Her EF is between 55% and 60%. In talking to her at this point, she feels like she is doing well. She still has residual focal weakness on the right side and difficulty walking. The repetitive speech seems to have cleared up. We do not have a Keppra level. An EEG was ordered to see if she is having subclinical seizures, but now the situation seems to have changed clinically. I will review her Keppra level and make adjustments in her medication. Job ID: [id number]
[2019-08-17 06:15] LABS: Anion Gap 14 mmol/L (10-20); BUN (Urea Nitrogen) 8 mg/dL (9.8-20.1); Calc. Creatinine Clearance 105 mL/min (70-130); Calcium 9.4 mg/dL (7.8-10.44); Carbon Dioxide 22 mmol/L (23-31); Cardiac Risk 4.7 (Less than 4.5); Chloride 107 mmol/L (98-107); Cholesterol 118 mg/dl (< 200 Desired); Estimated GFR-MDRD Greater than 90; Glucose 82 mg/dL (80-115); HDL Cholesterol 25 mg/dL (>60 Neg Risk); LDL Cholesterol, Calculated 77 mg/dL; Potassium 4.2 mmol/L (3.5-5.1); Sodium 139 mmol/L (136-145); Triglycerides 79 mg/dL (Less than 150)
[2019-08-17 06:32] LABS: #Basophils 0.1 thou/uL (0.0-0.2); #Eosinphils 0.1 thou/uL (0.0-0.7); #Lymphocytes 1.9 thou/uL (1.20-3.40); #Monocytes 0.5 thou/uL (0.11-0.59); #Neutrophils 4.7 thou/uL (1.40-6.50); %Basophils 0.9 % (0.0-1.0); %Eosinophils 1.9 % (0.0-10.0); %Lymphocytes 26.5 % (21.0-51.0); %Monocytes 6.4 % (0.0-10.0); %Neutrophils 64.3 % (42.0-75.0); Hemoglobin 12.4 g/dL (12.0-16.0); Mean Corpuscular HGB CONC 31.5 g/dL (32.0-36.0); Mean Corpuscular Hemoglobin 27.2 pg (27.0-31.0); Mean Corpuscular Volume 86.4 fL (78.0-98.0); Platelet Count 273 thou/uL (130-400); RBC Distribution Width 13.9 % (11.5-14.5); Red Blood Cell (RBC) Count 4.56 mill/uL (4.20-5.40); White Blood Cell (WBC) Count 7.2 thou/uL (4.8-10.8)
[2019-08-17] MEDS: Enoxaparin Sodium 40 MG/0.4 ML SYRINGE SC SCH (10:25)
[2019-08-17] MEDS: Aspirin 81 mg Enteric Coated Tablet PO SCH (10:26)
[2019-08-17] MEDS: busPIRone HCl 10 MG TAB PO SCH (10:26)
[2019-08-17] MEDS: levETIRAcetam 500 MG TAB PO SCH (10:27)
[2019-08-17] MEDS: Senokot S 8.6-50 MG TAB PO SCH (10:27)
[2019-08-17] MEDS: Clopidogrel Bisulfate 75 MG TAB PO SCH (10:27)
[2019-08-17] MEDS: Lisinopril 20 MG TAB PO SCH (10:27)
[2019-08-17] MEDS: Digoxin 0.125 MG TAB PO SCH (10:27)
[2019-08-17 15:50] VITALS: BP 138/79; TEMP 98.1
== END 2019-08-17 18:01 | disposition home or self-care (01) | DRG 101 ==
LOC: ERS 20:14 → 2SE 22:11 → UNDOADMIN 08-16 00:24 → 2SE 08-16 00:24 → UNDODISIN 08-17 18:01
PROVIDERS: ADMIT Internal Medicine; ATTEND Internal Medicine
DX: G40.909 Epilepsy, unspecified, not intractable, without status epilepticus (principal); R47.01 Aphasia; E87.1 Hypo-osmolality and hyponatremia; I69.351 Hemiplegia and hemiparesis following cerebral infarction affecting right dominant side; F17.210 Nicotine dependence, cigarettes, uncomplicated; I10 Essential (primary) hypertension; F20.9 Schizophrenia, unspecified; F31.9 Bipolar disorder, unspecified; K21.9 Gastro-esophageal reflux disease without esophagitis; J44.9 Chronic obstructive pulmonary disease, unspecified; E87.6 Hypokalemia; E78.5 Hyperlipidemia, unspecified; F41.9 Anxiety disorder, unspecified; D32.9 Benign neoplasm of meninges, unspecified; Z98.51 Tubal ligation status; Z90.49 Acquired absence of other specified parts of digestive tract; Z99.3 Dependence on wheelchair; Z98.42 Cataract extraction status, left eye; Z98.41 Cataract extraction status, right eye; Z88.8 Allergy status to other drugs, medicaments and biological substances
CPT/HCPCS: 36415; 70450; 70551; 80048; 80053; 80061; 80177; 82550; 83735; 84484; 85025; 85610; 85730; 93005; 94760; 95816; 95819; 96365; 96367; 96375; J1650; J1953; J2060; J3480; J7050

== ENCOUNTER 2019-11-20 10:59 | Emergency (ER) | payer MEDICARE ==
[2019-11-20] MEDS ORDERED: Lorazepam 2 MG/ML VIAL ONE (11:54)
[2019-11-20 12:10] LABS: #Eosinphils 0.1 thou/uL (0.0-0.7); #Lymphocytes 1.2 thou/uL (1.20-3.40); #Monocytes 0.6 thou/uL (0.11-0.59); #Neutrophils 2.6 thou/uL (1.40-6.50); %Basophils 0.6 % (0.0-1.0); %Eosinophils 2.6 % (0.0-10.0); %Monocytes 12.6 % (0.0-10.0); %Neutrophils 58.2 % (42.0-75.0); Hemoglobin 12.5 g/dL (12.0-16.0); Mean Corpuscular HGB CONC 31.1 g/dL (32.0-36.0); Mean Corpuscular Hemoglobin 27.6 pg (27.0-31.0); Mean Corpuscular Volume 88.8 fL (78.0-98.0); Platelet Count 239 thou/uL (130-400); RBC Distribution Width 13.5 % (11.5-14.5); Red Blood Cell (RBC) Count 4.55 mill/uL (4.20-5.40); White Blood Cell (WBC) Count 4.5 thou/uL (4.8-10.8)
[2019-11-20 12:28] LABS: Bilirubin Negative (Negative); Blood, Urine Negative (Negative); Clarity Clear (Clear); Glucose, Urine (Dipstick) Normal (Negative); Leukocyte Negative Leu/uL (Negative); Nitrite Negative (Negative); Protein, Urine (Dipstick) Negative (Neg-Trace)
[2019-11-20 12:46] LABS: ALT (SGPT) 9 U/L (8-55); AST (SGOT) 13 U/L (5-34); Albumin 3.6 g/dL (3.4-4.8); Alkaline Phosphatase 64 U/L (40-110); Anion Gap 13 mmol/L (10-20); BUN (Urea Nitrogen) 12 mg/dL (9.8-20.1); Bilirubin, Total 0.2 mg/dL (0.2-1.2); Calc. Creatinine Clearance 0 mL/min (70-130); Calcium 9.2 mg/dL (7.8-10.44); Carbon Dioxide 22 mmol/L (23-31); Chloride 106 mmol/L (98-107); Estimated GFR-MDRD Greater than 90; Globulin 3.6 g/dL (2.4-3.5); Glucose 88 mg/dL (80-115); Protein, Total 7.2 g/dL (6.0-8.3); Sodium 137 mmol/L (136-145)
== END 2019-11-20 13:30 | disposition home or self-care (01) ==
LOC: ERS 10:59
DX: G24.01 Drug induced subacute dyskinesia (principal); T50.905A Adverse effect of unspecified drugs, medicaments and biological substances, initial encounter; I10 Essential (primary) hypertension; F31.9 Bipolar disorder, unspecified; F20.9 Schizophrenia, unspecified; E78.5 Hyperlipidemia, unspecified; Z86.73 Personal history of transient ischemic attack (TIA), and cerebral infarction without residual deficits; Z79.899 Other long term (current) drug therapy
CPT/HCPCS: 36415; 80053; 81003; 84146; 85025; 99284; J2060

== ENCOUNTER 2020-03-13 09:30 | Observation (INO) | payer MEDICARE ==
[2020-03-13] MEDS ORDERED: Lorazepam 2 MG/ML VIAL ONE (09:54)
[2020-03-13 10:32] LABS: #Eosinphils 0.1 thou/uL (0.0-0.7); #Lymphocytes 1.9 thou/uL (1.20-3.40); #Monocytes 0.6 thou/uL (0.11-0.59); #Neutrophils 4.6 thou/uL (1.40-6.50); %Basophils 0.6 % (0.0-1.0); %Eosinophils 1.3 % (0.0-10.0); %Lymphocytes 25.8 % (21.0-51.0); %Monocytes 8.5 % (0.0-10.0); %Neutrophils 63.8 % (42.0-75.0); Hemoglobin 12.5 g/dL (12.0-16.0); Mean Corpuscular HGB CONC 30.8 g/dL (32.0-36.0); Mean Corpuscular Hemoglobin 27.6 pg (27.0-31.0); Mean Corpuscular Volume 89.4 fL (78.0-98.0); Mean Platelet Volume 8.3 fL (7.4-10.4); Platelet Count 246 thou/uL (130-400); RBC Distribution Width 12.5 % (11.5-14.5); Red Blood Cell (RBC) Count 4.55 mill/uL (4.20-5.40); White Blood Cell (WBC) Count 7.2 thou/uL (4.8-10.8)
[2020-03-13 10:50] LABS: ALT (SGPT) 9 U/L (8-55); AST (SGOT) 13 U/L (5-34); Albumin 3.9 g/dL (3.4-4.8); Alkaline Phosphatase 74 U/L (40-110); Anion Gap 11 mmol/L (10-20); BUN (Urea Nitrogen) 15 mg/dL (9.8-20.1); Bilirubin, Total 0.2 mg/dL (0.2-1.2); Calc. Creatinine Clearance 0 mL/min (70-130); Calcium 8.8 mg/dL (7.8-10.44); Carbon Dioxide 26 mmol/L (23-31); Chloride 105 mmol/L (98-107); Estimated GFR-MDRD 89; Globulin 3.5 g/dL (2.4-3.5); Glucose 100 mg/dL (80-115); Lipase 21 U/L (8-78); Potassium 3.5 mmol/L (3.5-5.1); Protein, Total 7.4 g/dL (6.0-8.3); Sodium 138 mmol/L (136-145)
--- NOTE | 2020-03-13 10:54 | CT ---
CT Brain WO Con HISTORY: Altered mental status COMPARISON: 08/15/2019 FINDINGS: Changes of gliosis in the right anterior temporal lobe and a large area of encephalomalacia in the le ft cerebral hemisphere and changes of chronic small vessel ischemic disease in the periventricular white matter are again seen. The ventricular size is stable and the basilar cisterns are patent. No evidence of acute infarct, hemorrhage, midline shift or abnormal extra-axial fluid collections are seen. The bony calvarium is intact. The visualized paranasal sinuses and mastoid air cells are well-aerated. IMPRESSION: No CT evidence of acute intracranial process. Discussed over the telephone with ER physician Dr. Dee Dee Mejía at 10:48 AM
[2020-03-13 10:56] LABS: Prothrombin Time 12.8 sec (12.0-14.7)
--- NOTE | 2020-03-13 11:13 | CT ---
EXAM: CT ANGIOGRAM OF THE HEAD AND NECK INDICATION: Level 1 stroke. Altered mental status. COMPARISON: 06/14/2019. TECHNIQUE: CT angiogram of the head and neck are performed in the axial plane. Three-dimensional reformatted ayad ges are submitted for interpretation. FINDINGS: CTA OF THE HEAD WITH AND WITHOUT CONTRAST: POSTCONTRAST CT OF BRAIN: No pathologic enhancement of the brain parenchyma. Stable encephalomalacia and gliosis involving the right temporal lobe, left frontal and temporal lobes. Stable partially calcified meningioma in the right middle cranial fossa measuring 1.3 x 1.9 cm. Postcontrast soft tissue neck CT: Aerodigestive tract:Patent. Mild nonspecific mild fullness of the nasopharynx, unchanged. Stable nons pecific fullness of the left and right palatine tonsils. Sinuses: Adequate aeration. Orbits: Bilateral ocular lenses are appropriately located. Both globes are intact. Retrobulbar fat is preserved. Symmetric attenuation the optic nerves and ocular rectus muscles. Salivary glands:Appropriate attenuation. Thyroid gland: Appropriate attenuation. Lymph nodes: No evidence of lymphadenopathy by size criteria. Paraspinal muscles: Symmetric attenuation of the sternocleidomastoid muscles. Appropriate attenuation of the paraspinal muscles. Cervical spine:Vertebral body height is maintained. No fracture. No significant central canal stenosi s or significant neural foraminal narrowing. Limited evaluation by technique. Upper mediastinum and lung apices: Chronic changes of the lung parenchyma. Nonspecific enlarged preca rinal lymph node measures 2.2 x 1.4 cm. CTA OF THE NECK WITH CONTRAST: Aorta: Appropriate enhancement and luminal diameter. Right carotid artery: Appropriate enhancement and luminal diameter of the origin the right carotid ar kiet, innominate artery, common carotid artery, carotid bifurcation and internal carotid artery. There is tortuosity of the proximal common carotid artery and proximal internal carotid artery. Minim al atherosclerosis without significant narrowing based upon NASCET criteria. Left carotid: Appropriate enhancement and luminal diameter of the origin of the common carotid artery , common carotid artery, carotid bifurcation and internal carotid artery. There is short segment mild atherosclerosis involving the left proximal internal carotid artery. Tortuosity of the proximal left common carotid artery and proximal left internal carotid artery is noted. Subclavian arteries:Symmetric and patent. Vertebral arteries:Appropriate enhancement and luminal diameter of both cervical vertebral arteries. Left vertebral artery is dominant. CTA OF THE BRAIN: Intracranial internal carotid arteries:Appropriate enhancement and luminal diameter. Atherosclerosis of both cavernous segments. Anterior circulation: Appropriate enhancement and luminal diameter of the bilateral A1 segment, M1 se gments, proximal A2 segments and proximal MCA branches. Intracranial vertebral arteries: Atherosclerosis. There is short segment severe narrowing of the intr acranial right vertebral artery. Posterior circulation: Basilar artery is predominantly supplied by the left vertebral artery. There i s short segment mild narrowing of the basilar artery. Bilateral PRESCHOOL AIDE have origin and have appropriate enhancement and luminal diameter. IMPRESSION: 1. No hemodynamically significant stenosis, occlusion or aneurysmal formation. 2. Encephalomalacia and gliosis as described above. 3. Results study discussed with Dr. Mejía 03/13/2020 at 11:12 AM. Code CR Transcribed Date/Time: 03/13/2020 11:30 AM
--- NOTE | 2020-03-13 11:17 | RAD ---
PORTABLE CHEST 1 VIEW: Date: 03/13/2020 Time: 1016 hours HISTORY: Altered mental status. COMPARISON: 06/29/2019. FINDINGS/IMPRESSION: The heart is enlarged. No lobar consolidation, pneumothoraces, can pulmonary edema, or large effusi ons are seen. POS: [facility]
[2020-03-13] MEDS ORDERED: Iopamidol-370 76% 500 ML 1 ML ONE (11:27)
[2020-03-13] MEDS ORDERED: Aspirin 81 mg Enteric Coated Tablet ONE (12:00)
[2020-03-13] MEDS ORDERED: Aspirin 300 MG Suppository ONE (12:03)
[2020-03-13 12:08] LABS: Bilirubin Negative (Negative); Blood, Urine Negative (Negative); Clarity Clear (Clear); Glucose, Urine (Dipstick) Normal (Negative); Ketone, Urine Negative (Negative); Leukocyte Negative Leu/uL (Negative); Nitrite Negative (Negative); Protein, Urine (Dipstick) Negative (Neg-Trace); Urobilinogen Normal mg/dL (Less than 2)
[2020-03-13 12:10] LABS: Specific Gravity, Urine 1.013 (1.002-1.036)
[2020-03-13] MEDS ORDERED: Lorazepam 2 MG/ML VIAL SLOW IVP PRN (12:26)
[2020-03-13] MEDS ORDERED: levETIRAcetam In NaCl (Iso-Os) 1,500 MG in Premix Bag 1 BAG IVPB SCH ×3 (13:00→22:30)
[2020-03-13 13:15] LABS: Acetaminophen Less than 6.0 mcg/mL (10.0-30.0); Alcohol Less than 10 mg/dL (Less than 10); Salicylate Less than 8.0 mg/dL (15.0-30.0)
--- NOTE | 2020-03-13 14:33 | MRI ---
MRI OF THE BRAIN WITHOUT CONTRAST: 03/13/20 HISTORY: Altered mental status, level I stroke, acute CVA. COMPARISON: MRI of the brain of 10/17/18. CORRELATION: CT brain and CTA brain from today. FINDINGS: No restricted diffusion is seen. Large area of encephalomalacia in the left cerebral hemisphere, glio tic changes in the right anterior temporal lobe and changes of chronic small vessel ischemic disease in the periventricular white matter are stable. The ventricular size is stable and the basilar cisterns patent. No evidence of acute infarct, hemorrh age, midline shift, or abnormal extra-axial fluid collections are seen. The visualized paranasal sinuses and mastoid air cells are well aerated. IMPRESSION: Chronic changes. No evidence of acute intracranial process. POS: [facility]
--- NOTE | 2020-03-13 14:47 | CON ---
NEUROLOGY CONSULTATION DATE OF CONSULTATION: 03/13/2020 REASON FOR CONSULTATION: Breakthrough seizure. HISTORY OF PRESENT ILLNESS: Ms. Mitchell is a 64-year-old female with medical history significant for CVA with residual right hemiparesis, seizure disorder secondary to stroke, chronic obstructive pulmonary disease, gastroesophageal reflux disease, hypertension, dyslipidemia, and history of meningioma, presented to the emergency room with a breakthrough seizure. There has been some concern that the patient has been noncompliant with the medication. The patient is confused and unable to provide a good history, but admitted that she has been taking medicines on as- needed basis. Head CT was done, which was negative for acute intracranial pathology. A CTA of the head and neck was also done, which was negative for hemodynamically significant stenosis. The patient is somnolent and unable to provide most of the history. REVIEW OF SYSTEMS: Unable to obtain secondary to mental status. PAST MEDICAL HISTORY: 1. Prior cerebrovascular accident with residual right hemiparesis. 2. Seizure disorder. 3. Hypertension. 4. Dyslipidemia. 5. COPD. 6. GERD. 7. Chronic meningioma. PAST SURGICAL HISTORY: 1. Status post appendectomy. 2. Cataract removal. 3. Tubal ligation. FAMILY HISTORY: Denies family history of stroke. SOCIAL HISTORY: The patient is a smoker and also history of marijuana abuse. ALLERGIES: Haldol PHYSICAL EXAMINATION: 150/80 88 16 GENERAL APPEARANCE: The patient is alert, awake, but does not follow commands, does not maintain eye contact, extremely somnolent. She is not oriented to person, place, or time. CVS: Regular rate and rhythm. CHEST: Clear. ABDOMEN: Soft. NECK: No carotid bruit. NEUROLOGIC: Mental status; the patient is somnolent. She does not follow commands. She does not maintain eye contact. She is not oriented at this time. Cranial nerves; pupils equal and reactive to light, right facial droop. Corneas positive. Cough positive. Hearing seems to be intact. Moves neck in both direction. Motor; right hemiparesis, right upper extremity less than right lower extremity. Spontaneous movement of the left upper and lower extremities. Sensory; decreased on the right. Reflexes; brisk on the right. Cerebellar, unable to perform on the right secondary to weakness. Gait; deferred due to the patient's safety reason. DATA REVIEWED: I reviewed the labs, which were essentially unremarkable.Imaging reviewed. ASSESSMENT AND PLAN: Ms. Gia Mitchell is consulted for a breakthrough seizure. There has been history of noncompliance, loaded with Keppra 1500 mg IV now and then start her on a maintenance dose of 1500 mg p.o. b.i.d. consider MRI of the brain to rule out acute intracranial process. CT angiogram of the head and neck reviewed , which was negative for hemodynamically significant stenosis. Recommend EEG to see the extent of interictal epileptiform activities, which will help us in further management of seizure disorder. Observe seizure precautions. Ativan 2 mg IV for seizure greater than 3 minutes. Neuro checks every 4 hours. Continue home medications. Continue aspirin and high-intensity statin for secondary stroke prevention. PT/OT/speech. We will continue to follow. Continue medical management per primary team. The plan discussed with the primary attending, Dr. Zuluaga. Job ID: [id number] [facility]
[2020-03-13 14:55] LABS: Troponin I 0.014 ng/mL (< 0.028)
[2020-03-13] MEDS ORDERED: Calcium Carbonate 500 MG ChewTAB PO PRN (15:05)
[2020-03-13] MEDS ORDERED: Ondansetron PF 4 MG/2 ML Vial IVP PRN (15:05)
[2020-03-13] MEDS ORDERED: Ondansetron ODT 4 MG TAB PO PRN (15:05)
[2020-03-13] MEDS ORDERED: Acetaminophen 325 MG TAB PO PRN (15:05)
[2020-03-13] MEDS: Sodium Chloride 0.9% 1,000 ML IV SCH (15:31)
[2020-03-13 16:14] VITALS: BMI 31.1
[2020-03-13 17:47] LABS: Troponin I Less than 0.010 ng/mL (< 0.028)
[2020-03-13] MEDS ORDERED: levETIRAcetam 500 MG TAB PO SCH (21:00)
[2020-03-13] MEDS ORDERED: Famotidine 20 MG TAB PO SCH (21:00)
[2020-03-13] MEDS: Senokot S 8.6-50 MG TAB PO SCH (22:54)
[2020-03-13] MEDS: Aggrenox 200-25mg CAP PO SCH (22:55)
[2020-03-14] MEDS: Sodium Chloride 0.9% 1,000 ML IV SCH ×3 (01:16→21:54)
[2020-03-14 05:04] LABS: #Basophils 0.1 thou/uL (0.0-0.2); #Eosinphils 0.1 thou/uL (0.0-0.7); #Monocytes 0.5 thou/uL (0.11-0.59); %Basophils 1.4 % (0.0-1.0); %Lymphocytes 35.5 % (21.0-51.0); %Monocytes 8.2 % (0.0-10.0); %Neutrophils 52.9 % (42.0-75.0); Hemoglobin 13.6 g/dL (12.0-16.0); Mean Corpuscular HGB CONC 31.5 g/dL (32.0-36.0); Mean Corpuscular Hemoglobin 28.3 pg (27.0-31.0); Mean Corpuscular Volume 89.9 fL (78.0-98.0); Mean Platelet Volume 9.2 fL (7.4-10.4); Platelet Count 208 thou/uL (130-400); RBC Distribution Width 12.6 % (11.5-14.5); White Blood Cell (WBC) Count 5.7 thou/uL (4.8-10.8)
[2020-03-14 05:18] LABS: Anion Gap 11 mmol/L (10-20); Carbon Dioxide 21 mmol/L (23-31); Chloride 109 mmol/L (98-107); Phosphorus 3.2 mg/dL (2.3-4.7); Sodium 137 mmol/L (136-145)
[2020-03-14 05:26] LABS: Albumin 3.5 g/dL (3.4-4.8); BUN (Urea Nitrogen) 7 mg/dL (9.8-20.1); BUN/Creatinine Ratio 10.94; Calc. Creatinine Clearance 123 mL/min (70-130); Estimated GFR-MDRD Greater than 90; Glucose 85 mg/dL (80-115)
[2020-03-14] MEDS ORDERED: Enoxaparin Sodium 40 MG/0.4 ML SYRINGE SC SCH (09:00)
--- NOTE | 2020-03-14 10:24 | PDOC.EVN ---
Event Note - Event Note Event Note: Patient seen and examined for AMS/seizure. Vitals/chart reviewed. Neuro exam nonfocal. I agree with the note/A&P by [employer]. Case d/w Neurology
--- NOTE | 2020-03-14 11:09 | HP ---
PRIMARY CARE PHYSICIAN: Unknown. CHIEF COMPLAINT: Seizure. HISTORY OF PRESENT ILLNESS: The patient is a 64-year-old female with past medical history significant for CVA, seizures, and hypertension. She presented to the ER today with new onset difficulty speaking and confusion. Family states that this started approximately 8 a.m. this morning. No new medication. No recent fever, cough, or sore throat. No exposure to sick parties. Family states that she has been compliant with her medications. She does have a history of frequent cannabis use, not known when the last time she used was. Today in the ER, she did experience a seizure while there. They administered aspirin 300 mg rectally and lorazepam 2 mg IV push. She also had a CT [place] angio with contrast, which showed no hemodynamically significant stenosis, occlusion, aneurysmal formation, encephalomalacia, and gliosis. They also did a brain CT, chest x-ray, and brain MRI. PAST MEDICAL HISTORY: Significant for hypertension, seizure, hyperlipidemia, CVAs, schizophrenia, bipolar, and depression. PAST SURGICAL HISTORY: Bilateral cataracts, appendectomy, and tubal ligation. ALLERGIES: HALDOL. MEDICATIONS: 1. Aggrenox one capsule p.o. b.i.d. 2. Digoxin 0.125 mg p.o. daily. 3. Keppra 1500 mg p.o. b.i.d. 4. Toprol-XL 25 mg p.o. daily. 5. Lisinopril 20 mg p.o. daily. SOCIAL HISTORY: The patient lives at home with her son and his girlfriend. She does not work. She is a current everyday smoker. Rare alcohol use. Her family reported using marijuana. FAMILY HISTORY: No history reported. REVIEW OF SYSTEMS: All other review of systems are negative unless noted in the HPI. PHYSICAL EXAMINATION: VITAL SIGNS: 97.1 temperature, 96 of pulse, respiratory rate 16, 100% on room air, and blood pressure 176/103. GENERAL: The patient appears comfortable and pain free, possibly confused, possibly postictal confusion after her seizure. HEENT: Head, atraumatic and normocephalic. Eyes, PERRLA. Extraocular muscles intact. ENT, negative. Teeth with dental caries. RESPIRATORY: Clear to auscultation bilaterally with slightly diminished to lower lobes. No wheezes, rhonchi, or rales. CARDIOVASCULAR: Regular rate and rhythm. No murmurs. No gallops. No rubs. ABDOMEN: Bowel sounds normal. No distention. No guarding. No masses. NEUROLOGIC: Spontaneous movement of left upper and lower extremities. Right side, no movement from prior stroke per the patient. Cerebellar intact on the left, unable to assess whether the patient is altered or with difficulty finding words. DIAGNOSTIC DATA: LABORATORY: White blood cell 7.2, hemoglobin 12.5, hematocrit 40.7, PT 12.8, INR 1. Sodium 138, potassium 3.5, chloride 105, BUN 15, creatinine 0.78, GFR 89. Lactic acid 1.2, magnesium 2. Urine nonspecific urinary tract infection. Keppra level 47.9. Negative alcohol levels. IMAGING: The CT [place] angio was reported as above. Brain CT shows no CT evidence of acute intracranial process. Chest x-ray shows enlarged heart. No lobar consolidation, pneumothoraces, can pulmonary edema, or large effusion is seen. The brain MRI shows chronic changes, no evidence of acute intracranial process. IMPRESSION: 1. Metabolic encephalopathy versus postictal state from seizure. The patient does appear to have some continued confusion, unknown whether this was prior to her seizure or if this is just occurring afterwards. We will continue to monitor the patient overnight and recheck lab levels in the morning. 2. Breakthrough seizure. We will continue Keppra 1500 mg p.o. b.i.d. Neurology has been consulted and has ordered an EEG. Appreciate neurology's input. 3. Hypertension. Restart the patient's home medications and cover with p.r.n. antihypertensives as needed. Vital signs have been monitored on unit, along with temperature monitoring. 4. Gastrointestinal and deep venous thrombosis prophylaxis, covered with Pepcid and Lovenox. The patient's surrogate decision maker is her daughter. The patient has been discussed with Dr. Zuluaga. Job ID: [id number] [facility]
[2020-03-14] MEDS: Aggrenox 200-25mg CAP PO SCH ×2 (11:25→21:53)
[2020-03-14] MEDS: Senokot S 8.6-50 MG TAB PO SCH ×2 (11:26→21:53)
[2020-03-14] MEDS: levETIRAcetam 500 MG TAB PO SCH ×2 (11:26→21:53)
[2020-03-14] MEDS: Digoxin 0.125 MG TAB PO SCH (11:26)
[2020-03-14] MEDS: Lisinopril 20 MG TAB PO SCH (11:28)
--- NOTE | 2020-03-14 12:58 | PDOC.HOSPP ---
- Subjective Encounter Date: 03/14/20 Subjective: NEUROLOGY PROGRESS NOTE Patient more awake today. Receptive aphasia and right hemiparesis - residual deficits from prior stroke. No seizures since admission after initiation of Keppra. - Objective Vital Signs & Weight: Vital Signs (12 hours) Temp Pulse Resp BP BP Pulse Ox 03/14/20 11:45 97.6 F 63 16 153/96 H 97 03/14/20 11:28 153/96 H 03/14/20 11:26 58 L 03/14/20 07:39 98.2 F 58 L 18 147/84 H 98 03/14/20 04:00 98.1 F 68 18 147/85 H 100 03/14/20 02:55 100 Weight Admit Weight 199 lb 2 oz Weight 199 lb 2 oz I&O: 03/13/20 03/14/20 03/15/20 06:59 06:59 06:59 Intake Total 1016 600 Output Total 700 1400 Balance 316 -800 Result Diagrams: 03/14/20 04:34 03/14/20 04:34 Radiology Reviewed by me: Yes EKG Reviewed by me: Yes Hospitalist ROS - Review of Systems ROS unobtainable: due to mental status (aphasia) - Medication Medications: Active Medications Generic Name Dose Route Start Last Admin Trade Name Freq PRN Reason Stop Dose Admin Digoxin 0.125 mg 03/14/20 09:00 03/14/20 11:26 Lanoxin PO 0.125 mg DAILY URI Administration Dipyridamole/Aspirin 1 cap 03/13/20 21:00 03/14/20 11:25 Aggrenox PO 1 cap BID URI Administration Enoxaparin Sodium 40 mg 03/14/20 09:00 03/14/20 11:26 Lovenox SC 40 mg 0900 URI Administration Sodium Chloride 1,000 mls @ 100 mls/hr 03/13/20 15:15 03/14/20 11:22 Normal Saline 0.9% IV 1,000 mls .Q10H URI Administration Levetiracetam 1,500 mg 03/14/20 09:00 03/14/20 11:26 Keppra PO 1,500 mg BID URI Administration Lisinopril 20 mg 03/14/20 09:00 03/14/20 11:28 Zestril PO 20 mg DAILY URI Administration Metoprolol Succinate 25 mg 03/13/20 19:00 03/13/20 20:07 Toprol Xl PO Not Given 1900 URI Pantoprazole Sodium 40 mg 03/14/20 09:00 03/14/20 11:30 Protonix PO 40 mg 0900 URI Administration Senna/Docusate Sodium 2 tab 03/13/20 21:00 03/14/20 11:26 Senokot S PO 2 tab BID URI Administration - Exam General Appearance: awake alert Eye: PERRL ENT: normocephalic atraumatic Neck: supple Heart: RRR Respiratory: CTAB Gastrointestinal: soft Extremities: no cyanosis Neurological: facial droop, hemiplegia, speech deficit Musculoskeletal: diffuse muscle atrophy Psychiatric: normal affect, not oriented (aphasic) Hosp A/P (1) Breakthrough seizure Code(s): G40.919 - EPILEPSY, UNSP, INTRACTABLE, WITHOUT STATUS EPILEPTICUS Status: Acute (2) Acute metabolic encephalopathy Code(s): G93.41 - METABOLIC ENCEPHALOPATHY Status: Acute - Plan PT/OT, speech therapy, DVT proph w/lovenox 64 year old with prior stroke with right hemiparesis and speech deficits presented with breakthrough seizures due to medication non-compliance. EEG ongoing. Will follow up on read. Continue Keppra 1500 mg IV twice daily. Switch to oral equivalent dose once cleared by speech. Ativan 2 mg IV for seizure greater than 3 minutes. Continue aspirin and high intensity statin for secondary stroke prevention. Neurochecks every 4 hours. MRI Brain reviewed which showed old infarcts in left cerebral and right temporal but nothing acute. Continue home medications. Strict control of BP and BG. PT/OT/Speech Continue medical management per primary team. Plan discussed with patient and the nursing staff.
--- NOTE | 2020-03-14 15:29 | PDOC.HOSPP ---
- Subjective Encounter Date: 03/14/20 Encounter Time: 10:30 Subjective: Patient seen and examined for AMS/seizure. Mentation improving. No new complaints. No overnight events - Objective Vital Signs & Weight: Vital Signs (12 hours) Temp Pulse Resp BP BP Pulse Ox 03/14/20 11:45 97.6 F 63 16 153/96 H 97 03/14/20 11:28 153/96 H 03/14/20 11:26 58 L 03/14/20 07:39 98.2 F 58 L 18 147/84 H 98 03/14/20 04:00 98.1 F 68 18 147/85 H 100 Weight Admit Weight 199 lb 2 oz Weight 199 lb 2 oz I&O: 03/13/20 03/14/20 03/15/20 06:59 06:59 06:59 Intake Total 1016 600 Output Total 700 1400 Balance 316 -800 Result Diagrams: 03/14/20 04:34 03/14/20 04:34 Radiology Reviewed by me: Yes (MRI brain - no CVA) EKG Reviewed by me: Yes (Tele SR) Hospitalist ROS - Review of Systems Cardiovascular: denies: chest pain, palpitations, orthopnea, paroxysmal noc. dyspnea, edema, light headedness, other Gastrointestinal: denies: nausea, vomiting, abdominal pain, diarrhea, constipation, melena, hematochezia, other - Medication Medications: Active Medications Generic Name Dose Route Start Last Admin Trade Name Freq PRN Reason Stop Dose Admin Digoxin 0.125 mg 03/14/20 09:00 03/14/20 11:26 Lanoxin PO 0.125 mg DAILY URI Administration Dipyridamole/Aspirin 1 cap 03/13/20 21:00 03/14/20 11:25 Aggrenox PO 1 cap BID URI Administration Enoxaparin Sodium 40 mg 03/14/20 09:00 03/14/20 11:26 Lovenox SC 40 mg 0900 URI Administration Sodium Chloride 1,000 mls @ 100 mls/hr 03/13/20 15:15 03/14/20 11:22 Normal Saline 0.9% IV 1,000 mls .Q10H URI Administration Levetiracetam 1,500 mg 03/14/20 09:00 03/14/20 11:26 Keppra PO 1,500 mg BID URI Administration Lisinopril 20 mg 03/14/20 09:00 03/14/20 11:28 Zestril PO 20 mg DAILY URI Administration Metoprolol Succinate 25 mg 03/13/20 19:00 03/13/20 20:07 Toprol Xl PO Not Given 1900 [facility] Pantoprazole Sodium 40 mg 03/14/20 09:00 03/14/20 11:30 Protonix PO 40 mg 0900 URI Administration Senna/Docusate Sodium 2 tab 03/13/20 21:00 03/14/20 11:26 Senokot S PO 2 tab BID URI Administration - Exam General Appearance: NAD Heart: RRR, no gallops, no rubs, normal peripheral pulses Respiratory: no wheezes, no rales, no ronchi, normal chest expansion Gastrointestinal: soft, non-tender, no guarding, no rigidity Extremities: no cyanosis, no clubbing, no edema Extremities - other findings: no calf tenderness Neurological: no new deficit Psychiatric: A&O x 3, somnolent Hosp A/P - Plan DVT proph w/SCDs Toxic Metabolic Encephalopathy due to seizures - POA h/o on CVA on Aggrenox Obesity BMI 31.2 HTN HLD GERD PLAN: Change Keppra to PO Await EEG Cont to monitor Neuro input appreciated Cont other meds as below Cont IVF - can dc if tolerating PO
[2020-03-15 08:22] VITALS: TEMP 98.6
[2020-03-15] MEDS: levETIRAcetam 500 MG TAB PO SCH (09:05)
[2020-03-15] MEDS: Aggrenox 200-25mg CAP PO SCH (09:06)
[2020-03-15] MEDS: Senokot S 8.6-50 MG TAB PO SCH (09:06)
[2020-03-15] MEDS: Digoxin 0.125 MG TAB PO SCH (09:06)
[2020-03-15] MEDS: Lisinopril 20 MG TAB PO SCH (09:07)
[2020-03-15 12:18] VITALS: BP 140/89
--- NOTE | 2020-03-16 16:07 | DIS ---
DATE OF ADMISSION: 03/13/2020 DATE OF DISCHARGE: 03/15/2020 DISCHARGE DISPOSITION: Home. FOLLOWUP: 1. Follow up with primary care physician, Dr. Cross, in 1 week. 2. Follow up with Neurology, Dr. Bailon, in 1 to 2 weeks. Fall precaution was emphasized. No driving until cleared by MD. DISCHARGE MEDICATIONS: Same as admission medication. The patient was seen and examined on the day of discharge. Denies any new complaints. No new focal deficit. BRIEF HOSPITAL COURSE: The patient is a 64-year-old female with seizure disorder secondary to CVA in the past, presented to the hospital with breakthrough seizures with altered mentation. Please refer to the history and physical for further details. The patient was admitted to the hospital with a diagnosis of breakthrough seizures. The patient was evaluated by Neurology, Dr. Denson. She was started on IV Keppra. She also had an EEG. The most likely cause of her seizure is medication noncompliance. The patient was extensively counseled to be compliant with her antiseizure medications. Her mentation has significantly improved. Inpatient rehab was recommended by Physical Therapy due to history of CVA. However, the patient declined. She prefers to go home with her family. She also declined home health care. She will be discharged home on her home medications. She was advised to seek medical attention if she develops any new neurologic symptoms. Fall precaution with 24-hour supervision was advised. FINAL DIAGNOSES: 1. Breakthrough seizures. 2. Toxic-metabolic encephalopathy secondary to above. 3. History of CVA with right-sided weakness, on Aggrenox. 4. Obesity with a BMI of 31.2. 5. Hypertension. 6. Hyperlipidemia. 7. Gastroesophageal reflux disease. 8. Physical deconditioning due to previous CVA. 9. Medication noncompliance. 10. Chronic obstructive pulmonary disease. 11. History of tobacco abuse. 12. Schizophrenia. 13. History of cannabis abuse. 14. History of meningioma. Job ID: [id number]
--- NOTE | 2020-03-17 10:43 | EEG ---
DATE OF SERVICE: 03/14/2020 This EEG was performed using 24-channel Sensor Tower video digital EEG machine with 24- disk electrodes. This was an extended 2-hour 5-minute of inpatient video EEG recording. Digital analysis of the EEG was done for spike and seizure detection, which revealed no abnormalities. BACKGROUND: The posterior background rhythm is 8.5 to 9 Hz on the right, and there is no posterior background rhythm on the left. HYPERVENTILATION: Not performed. PHOTIC STIMULATION: No significant response seen with photic stimulation. SLEEP: Drowsiness and sleep are observed. EEG DIAGNOSES: 1. Intermittent irregular, at times sharply contoured theta activity seen in the left frontotemporal region. 2. Occasional irregular theta activity seen during the recording. 3. Absence of posterior background rhythm on the left. CLINICAL INTERPRETATION: This EEG is consistent with focal cerebral dysfunction in the left frontotemporal region. There is also evidence of mild generalized nonspecific cerebral dysfunction. No ictal or interictal epileptiform abnormalities seen during the recording. Job ID: [id number] [facility]
== END 2020-03-15 12:59 | disposition home or self-care (01) ==
LOC: ERS 09:30 → 2SE 12:56
PROVIDERS: ADMIT Psychiatry & Neurology Neurology; ATTEND Psychiatry & Neurology Neurology
DX: I69.398 Other sequelae of cerebral infarction (principal); G40.802 Other epilepsy, not intractable, without status epilepticus; G92 Toxic encephalopathy; I69.351 Hemiplegia and hemiparesis following cerebral infarction affecting right dominant side; I69.320 Aphasia following cerebral infarction; I10 Essential (primary) hypertension; E78.5 Hyperlipidemia, unspecified; K21.9 Gastro-esophageal reflux disease without esophagitis; J44.9 Chronic obstructive pulmonary disease, unspecified; F20.9 Schizophrenia, unspecified; F31.9 Bipolar disorder, unspecified; F17.210 Nicotine dependence, cigarettes, uncomplicated; G93.89 Other specified disorders of brain; F12.11 Cannabis abuse, in remission; E66.9 Obesity, unspecified; Z68.31 Body mass index [BMI] 31.0-31.9, adult; Z91.14 Patient's other noncompliance with medication regimen; Z79.82 Long term (current) use of aspirin; Z79.899 Other long term (current) drug therapy; Z88.8 Allergy status to other drugs, medicaments and biological substances
CPT/HCPCS: 51701; 70450; 70496; 70498; 70551; 71045; 80069; 80177; 80307; 81003; 82962; 83605; 83690; 83735; 84484 ×2; 85025; 85610; 93005; 95712; 95816; 95819; 95957; 96374; 97116; 97139; 99285; J1953; 36415; 36416; 80053; 84443; 96361; 96365; 96372; 96375; 96376; G0378; J1650; J2060; Q9967

== ENCOUNTER 2020-06-13 15:02 | Emergency (ER) | payer MEDICARE ==
[2020-06-13 16:01] LABS: Bilirubin Negative (Negative); Blood, Urine Negative (Negative); Clarity Clear (Clear); Glucose, Urine (Dipstick) Normal (Negative); Ketone, Urine Negative (Negative); Leukocyte Negative Leu/uL (Negative); Nitrite Negative (Negative); Protein, Urine (Dipstick) Negative (Neg-Trace); Specific Gravity, Urine 1.021 (1.002-1.036); Urobilinogen Normal mg/dL (Less than 2)
[2020-06-13 16:11] LABS: Amphetamine Not Detected (NotDetected); Barbiturates Screen Not Detected (NotDetected); Benzodiazepine Screen Not Detected (NotDetected); Cocaine Metabolite Screen Not Detected (NotDetected); Medtox Control Line Valid? VALID (VALID); Medtox Reader # READER 4; Methadone Not Detected (NotDetected); Methamphetamine Not Detected (NotDetected); Opiate Screen Not Detected (NotDetected); Oxycodone Screen Not Detected (NotDetected); Phencyclidine (PCP) Not Detected (NotDetected); THC/Cannabinoid Screen Not Detected (NotDetected); Tricyclic Screen Not Detected (NotDetected)
[2020-06-13 16:38] LABS: #Basophils 0.1 thou/uL (0.0-0.2); #Eosinphils 0.1 thou/uL (0.0-0.7); #Lymphocytes 1.5 thou/uL (1.20-3.40); #Monocytes 0.5 thou/uL (0.11-0.59); #Neutrophils 5.3 thou/uL (1.40-6.50); %Eosinophils 1.7 % (0.0-10.0); %Lymphocytes 20.3 % (21.0-51.0); %Monocytes 7.1 % (0.0-10.0); Hemoglobin 12.7 g/dL (12.0-16.0); Mean Corpuscular HGB CONC 32.1 g/dL (32.0-36.0); Mean Corpuscular Hemoglobin 28.7 pg (27.0-31.0); Mean Corpuscular Volume 89.2 fL (78.0-98.0); Mean Platelet Volume 8.8 fL (7.4-10.4); Platelet Count 253 thou/uL (130-400); RBC Distribution Width 12.8 % (11.5-14.5); Red Blood Cell (RBC) Count 4.42 mill/uL (4.20-5.40); White Blood Cell (WBC) Count 7.5 thou/uL (4.8-10.8)
--- NOTE | 2020-06-13 16:38 | RAD ---
RADIOGRAPH CHEST 1 VIEW: Date: 06/13/20 Time: 4:03 p.m. HISTORY: 64-year-old female status post seizure. Concern for aspiration. COMPARISON: 03/13/20. FINDINGS: Left lower lobe poorly visualized because of body habitus and overlying soft tissues. No large consol idation identified. Questionable mild ill-defined region of increased attenuation of the right medial base. Ectasia and tortuosity of the thoracic aorta. No consolidation or pulmonary edema in the upper lung zones. No pneumothorax. IMPRESSION: 1. Nonspecific mild small density at right medial base. 2. Ectasia and tortuosity of thoracic aorta. JN [] POS: [facility]
--- NOTE | 2020-06-13 16:47 | CT ---
CT OF BRAIN PERFORMED WITHOUT CONTRAST ENHANCEMENT: 06/13/20 HISTORY: Patient fell backward, had a seizure. Reportedly confused. Residual right sided deficits from a prior CVA. COMPARISON: 03/13/20 exam. Generalized ventricular and sulcal prominence. Encephalomalacia change in the left frontal lobe is a stable finding. There are no signs of intracerebral hemorrhage or extra-axial fluid collection. Masto id air cells and visualized sinuses are clear. IMPRESSION: Old left frontal infarct. No acute intracranial abnormalities. [place] [facility] [place]
[2020-06-13 17:01] LABS: ALT (SGPT) 7 U/L (8-55); AST (SGOT) 14 U/L (5-34); Albumin 3.8 g/dL (3.4-4.8); Alcohol Less than 10 mg/dL (Less than 10); Alkaline Phosphatase 66 U/L (40-110); Anion Gap 14 mmol/L (10-20); BUN (Urea Nitrogen) 15 mg/dL (9.8-20.1); Bilirubin, Total 0.3 mg/dL (0.2-1.2); CK (CPK) 180 U/L (29-168); Calc. Creatinine Clearance 0 mL/min (70-130); Calcium 8.7 mg/dL (7.8-10.44); Carbon Dioxide 21 mmol/L (23-31); Chloride 106 mmol/L (98-107); Estimated GFR-MDRD Greater than 90; Globulin 3.4 g/dL (2.4-3.5); Glucose 92 mg/dL (80-115); Lipase 17 U/L (8-78); Potassium 4.2 mmol/L (3.5-5.1); Protein, Total 7.2 g/dL (6.0-8.3); Salicylate Less than 8.0 mg/dL (15.0-30.0); Sodium 137 mmol/L (136-145)
[2020-06-14 12:09] LABS: SARS-CoV-2 MS2 Positive; SARS-CoV-2 N Gene Negative; SARS-CoV-2 S Gene Negative; SARS-CoV-2 by NAA Not Detected (NotDetected); SARS-CoV-2 orf1ab Negative
== END 2020-06-13 19:20 | disposition home or self-care (01) ==
LOC: ERS 15:02
DX: S09.90XA Unspecified injury of head, initial encounter (principal); R41.82 Altered mental status, unspecified; Z20.828 Contact with and (suspected) exposure to other viral communicable diseases; R56.9 Unspecified convulsions; E78.5 Hyperlipidemia, unspecified; I10 Essential (primary) hypertension; F31.9 Bipolar disorder, unspecified; F20.9 Schizophrenia, unspecified; F17.210 Nicotine dependence, cigarettes, uncomplicated; Z79.899 Other long term (current) drug therapy; W19.XXXA Unspecified fall, initial encounter; Y93.01 Activity, walking, marching and hiking
CPT/HCPCS: 51701; 70450; 71045; 80053; 80306; 80307; 81003; 82550; 83605; 83690; 83735; 84484; 85025; 87040; 87086; 93005; 96360; 99285; U0003; 36415; 87635

== ENCOUNTER 2020-08-19 16:36 | Emergency (ER) | payer MEDICARE ==
--- NOTE | 2020-08-19 19:56 | ULT ---
RIGHT LOWER EXTREMITY VENOUS DUPLEX EXAM: 08/19/20 HISTORY: Right leg pain and swelling. Real time color Doppler evaluation of the right lower extremity was preformed from groin to calf. Thi s includes evaluation of common femoral, superficial and profunda femoral, saphenous, popliteal and p osterior tibial veins. This shows a patent deep venous system. There is normal compressibility and au gmentation. There is no evidence of DVT. IMPRESSION: No evidence of DVT of the right lower extremity. POS: [facility]
== END 2020-08-19 20:17 | disposition home or self-care (01) ==
LOC: ERS 16:36
DX: S86.911A Strain of unspecified muscle(s) and tendon(s) at lower leg level, right leg, initial encounter (principal); E78.5 Hyperlipidemia, unspecified; I10 Essential (primary) hypertension; F17.210 Nicotine dependence, cigarettes, uncomplicated; X58.XXXA Exposure to other specified factors, initial encounter; Z79.899 Other long term (current) drug therapy

== ENCOUNTER 2020-12-24 21:52 | Inpatient (IN) | payer MEDICARE, MEDICAID ==
[~2020-12-24 21:52] MED LIST changes: -ISOVUE-370 76%-LOCM 1 ML ONE; +Iopamidol-370 76% 500 ML 1 ML ONE
[2020-12-24 23:08] LABS: #Basophils 0.1 thou/uL (0.0-0.2); #Lymphocytes 1.3 thou/uL (1.20-3.40); #Monocytes 0.3 thou/uL (0.11-0.59); #Neutrophils 7.8 thou/uL (1.40-6.50); %Basophils 0.7 % (0.0-1.0); %Eosinophils 0.5 % (0.0-10.0); %Lymphocytes 13.3 % (21.0-51.0); %Monocytes 3.5 % (0.0-10.0); %Neutrophils 82.1 % (42.0-75.0); Mean Corpuscular HGB CONC 30.5 g/dL (32.0-36.0); Mean Corpuscular Hemoglobin 27.2 pg (27.0-31.0); Mean Platelet Volume 9.5 fL (7.4-10.4); Platelet Count 248 thou/uL (130-400); RBC Distribution Width 12.9 % (11.5-14.5); Red Blood Cell (RBC) Count 4.79 mill/uL (4.20-5.40); White Blood Cell (WBC) Count 9.5 thou/uL (4.8-10.8)
[2020-12-24 23:51] LABS: Bacteria/HPF None Seen HPF (None Seen); Bilirubin Negative (Negative); Blood, Urine Trace (Negative); Clarity Clear (Clear); Glucose, Urine (Dipstick) Normal (Negative); Ketone, Urine Negative (Negative); Leukocyte Negative Leu/uL (Negative); Nitrite Negative (Negative); Protein, Urine (Dipstick) Negative (Neg-Trace); RBC/HPF 0-3 HPF (0-3); Specific Gravity, Urine 1.032 (1.002-1.036); Squamous Epithelial 0-3 HPF (0-3); Urobilinogen Normal mg/dL (Less than 2); WBC/HPF 0-3 HPF (0-3)
[2020-12-24 23:54] LABS: ALT (SGPT) 8 U/L (8-55); AST (SGOT) 13 U/L (5-34); Albumin 4.2 g/dL (3.4-4.8); Alkaline Phosphatase 76 U/L (40-110); Anion Gap 14 mmol/L (10-20); BUN (Urea Nitrogen) 11 mg/dL (9.8-20.1); Bilirubin, Total 0.3 mg/dL (0.2-1.2); Calc. Creatinine Clearance 0 mL/min (70-130); Calcium 9.4 mg/dL (7.8-10.44); Carbon Dioxide 26 mmol/L (23-31); Chloride 103 mmol/L (98-107); Globulin 4.1 g/dL (2.4-3.5); Glucose 134 mg/dL (80-115); Potassium 4.1 mmol/L (3.5-5.1); Protein, Total 8.3 g/dL (5.8-8.1); Sodium 139 mmol/L (136-145)
[2020-12-24 23:57] LABS: Amphetamine Not Detected (NotDetected); Barbiturates Screen Not Detected (NotDetected); Benzodiazepine Screen Not Detected (NotDetected); Cocaine Metabolite Screen Not Detected (NotDetected); Medtox Control Line Valid? VALID (VALID); Medtox Reader # READER 4; Methadone Not Detected (NotDetected); Methamphetamine Not Detected (NotDetected); Opiate Screen Not Detected (NotDetected); Oxycodone Screen Not Detected (NotDetected); Phencyclidine (PCP) Not Detected (NotDetected); THC/Cannabinoid Screen Detected (NotDetected); Tricyclic Screen Not Detected (NotDetected)
[2020-12-25 01:43] VITALS: BMI 32.3
[2020-12-25] MEDS ORDERED: Acetaminophen 650 MG Suppository PR PRN (02:00)
[2020-12-25] MEDS ORDERED: levETIRAcetam in NS 1,500 MG in Premix Bag 1 BAG IVPB SCH (05:30)
[2020-12-25] MEDS: Enoxaparin Sodium 40 MG/0.4 ML SYRINGE SC SCH (08:52)
[2020-12-25 10:08] LABS: SARS-CoV-2 PCR by NAA Not Detected (NotDetected)
[2020-12-25 10:29] LABS: #Basophils 0.1 thou/uL (0.0-0.2); #Eosinphils 0.1 thou/uL (0.0-0.7); #Lymphocytes 2.9 thou/uL (1.20-3.40); #Monocytes 0.8 thou/uL (0.11-0.59); #Neutrophils 6.4 thou/uL (1.40-6.50); %Basophils 0.9 % (0.0-1.0); %Eosinophils 0.9 % (0.0-10.0); %Monocytes 7.5 % (0.0-10.0); %Neutrophils 62.7 % (42.0-75.0); Mean Corpuscular HGB CONC 31.5 g/dL (32.0-36.0); Mean Corpuscular Hemoglobin 27.6 pg (27.0-31.0); Mean Corpuscular Volume 87.8 fL (78.0-98.0); Platelet Count 198 thou/uL (130-400); Red Blood Cell (RBC) Count 4.72 mill/uL (4.20-5.40); White Blood Cell (WBC) Count 10.3 thou/uL (4.8-10.8)
[2020-12-25 11:00] LABS: Anion Gap 12 mmol/L (10-20); BUN (Urea Nitrogen) 10 mg/dL (9.8-20.1); Calc. Creatinine Clearance 108 mL/min (70-130); Calcium 9.3 mg/dL (7.8-10.44); Carbon Dioxide 23 mmol/L (23-31); Chloride 100 mmol/L (98-107); Glucose 86 mg/dL (80-115); Potassium 3.2 mmol/L (3.5-5.1); Sodium 132 mmol/L (136-145)
[2020-12-25] MEDS ORDERED: Lorazepam 2 MG/ML VIAL SLOW IVP PRN (12:30)
[2020-12-25] MEDS ORDERED: Acetaminophen 325 MG TAB PO PRN (15:36)
[2020-12-25] MEDS ORDERED: Atorvastatin Calcium 10 MG TAB PO SCH (21:00)
[2020-12-25] MEDS: Aggrenox 200-25mg CAP PO SCH (21:03)
[2020-12-25] MEDS: busPIRone HCl 10 MG TAB PO SCH (21:03)
[2020-12-25] MEDS: levETIRAcetam in NS 1,500 MG in Premix Bag 1 BAG IVPB SCH (21:04)
[2020-12-26] MEDS ORDERED: hydrALAZINE 20 MG/ML VIAL SLOW IVP SCH (00:45)
[2020-12-26 08:58] LABS: Anion Gap 17 mmol/L (10-20); BUN (Urea Nitrogen) 12 mg/dL (9.8-20.1); Calc. Creatinine Clearance 109 mL/min (70-130); Calcium 9.3 mg/dL (7.8-10.44); Carbon Dioxide 22 mmol/L (23-31); Chloride 104 mmol/L (98-107); Glucose 97 mg/dL (80-115); Potassium 3.6 mmol/L (3.5-5.1); Sodium 139 mmol/L (136-145)
[2020-12-26] MEDS ORDERED: Citalopram 20 MG TAB PO SCH (09:00)
[2020-12-26] MEDS ORDERED: Anastrozole 1 MG TAB PO SCH (09:00)
[2020-12-26] MEDS ORDERED: Lisinopril 20 MG TAB PO SCH (09:00)
[2020-12-26] MEDS: Enoxaparin Sodium 40 MG/0.4 ML SYRINGE SC SCH (09:35)
[2020-12-26] MEDS: levETIRAcetam in NS 1,500 MG in Premix Bag 1 BAG IVPB SCH (09:36)
[2020-12-26] MEDS ORDERED: Lacosamide 50 mg Tablet PO SCH ×2 (11:00→21:00)
[2020-12-26] MEDS: busPIRone HCl 10 MG TAB PO SCH (11:13)
[2020-12-26] MEDS: Aggrenox 200-25mg CAP PO SCH (11:13)
[2020-12-26 13:06] VITALS: BP 148/79; TEMP 98.7
== END 2020-12-26 17:05 | disposition home or self-care (01) | DRG 101 ==
LOC: ERS 21:52 → 2SE 12-25 00:18 → OBSVTOIN 12-26 14:52
PROVIDERS: ADMIT Student in an Organized Health Care Education/Training Program; ATTEND Internal Medicine
DX: G40.919 Epilepsy, unspecified, intractable, without status epilepticus (principal); J44.1 Chronic obstructive pulmonary disease with (acute) exacerbation; E87.1 Hypo-osmolality and hyponatremia; I69.351 Hemiplegia and hemiparesis following cerebral infarction affecting right dominant side; I10 Essential (primary) hypertension; E78.5 Hyperlipidemia, unspecified; F12.10 Cannabis abuse, uncomplicated; I65.02 Occlusion and stenosis of left vertebral artery; R13.12 Dysphagia, oropharyngeal phase; Z20.828 Contact with and (suspected) exposure to other viral communicable diseases; F03.90 Unspecified dementia, unspecified severity, without behavioral disturbance, psychotic disturbance, mood disturbance, and anxiety; Z98.51 Tubal ligation status; Z90.10 Acquired absence of unspecified breast and nipple; Z98.42 Cataract extraction status, left eye; Z98.41 Cataract extraction status, right eye; Z90.49 Acquired absence of other specified parts of digestive tract; Z88.8 Allergy status to other drugs, medicaments and biological substances; Z79.82 Long term (current) use of aspirin; Z79.899 Other long term (current) drug therapy
CPT/HCPCS: 36415; 36416; 70450; 70496; 70498; 70551; 71045; 80048; 80053; 80177; 80306; 81003; 81015; 83735; 84484; 85025; 87635; 93005; 95715; 95819; 95957; 96372; 96374; 96375; 96376; G0378; J0360; J1650; J1953; Q9967; U0003; U0005

== ENCOUNTER 2021-01-01 10:37 | Emergency (ER) | payer MEDICARE, MEDICAID ==
[2021-01-01 11:38] LABS: #Eosinphils 0.1 thou/uL (0.0-0.7); #Lymphocytes 1.4 thou/uL (1.20-3.40); #Monocytes 0.4 thou/uL (0.11-0.59); #Neutrophils 6.1 thou/uL (1.40-6.50); %Basophils 0.2 % (0.0-1.0); %Lymphocytes 17.9 % (21.0-51.0); %Monocytes 5.1 % (0.0-10.0); %Neutrophils 75.9 % (42.0-75.0); Hemoglobin 13.6 g/dL (12.0-16.0); Mean Corpuscular HGB CONC 31.4 g/dL (32.0-36.0); Mean Corpuscular Hemoglobin 28.3 pg (27.0-31.0); Mean Corpuscular Volume 89.9 fL (78.0-98.0); Mean Platelet Volume 8.6 fL (7.4-10.4); Platelet Count 265 thou/uL (130-400); RBC Distribution Width 13.2 % (11.5-14.5); Red Blood Cell (RBC) Count 4.83 mill/uL (4.20-5.40)
[2021-01-01 11:50] LABS: ALT (SGPT) 9 U/L (8-55); AST (SGOT) 13 U/L (5-34); Alkaline Phosphatase 64 U/L (40-110); Anion Gap 12 mmol/L (10-20); BUN (Urea Nitrogen) 8 mg/dL (9.8-20.1); Bilirubin, Total 0.4 mg/dL (0.2-1.2); Calc. Creatinine Clearance 0 mL/min (70-130); Calcium 9.7 mg/dL (7.8-10.44); Carbon Dioxide 28 mmol/L (23-31); Chloride 101 mmol/L (98-107); Globulin 3.8 g/dL (2.4-3.5); Glucose 152 mg/dL (80-115); Potassium 3.5 mmol/L (3.5-5.1); Protein, Total 7.8 g/dL (5.8-8.1); Sodium 137 mmol/L (136-145)
== END 2021-01-01 13:02 | disposition home or self-care (01) ==
LOC: ERS 10:37
DX: R56.9 Unspecified convulsions (principal); E78.5 Hyperlipidemia, unspecified; I10 Essential (primary) hypertension; F17.210 Nicotine dependence, cigarettes, uncomplicated; Z79.899 Other long term (current) drug therapy
CPT/HCPCS: 36415; 70450; 80053; 85025

== ENCOUNTER 2021-07-17 12:51 | Outpatient (CLI) | payer MEDICARE, OTHER | END 2021-07-17 12:52 | disposition home or self-care (01) | LOC: BICCT 12:51 | PROVIDERS: ATTEND Family Medicine | DX: Z12.2 Encounter for screening for malignant neoplasm of respiratory organs (principal); F17.210 Nicotine dependence, cigarettes, uncomplicated | CPT/HCPCS: 71271 ==

== ENCOUNTER 2021-08-04 10:58 | Outpatient (CLI) | payer MEDICARE, MEDICAID | END 2021-08-04 10:59 | disposition home or self-care (01) | LOC: PET 10:58 | PROVIDERS: ATTEND Family Medicine | DX: R91.8 Other nonspecific abnormal finding of lung field (principal); J98.4 Other disorders of lung; R91.1 Solitary pulmonary nodule | CPT/HCPCS: 78815; A9552 ==

== ENCOUNTER 2021-09-08 19:11 | Inpatient (IN) | payer MEDICARE, MEDICAID ==
[2021-09-08] MEDS ORDERED: Lorazepam 2 MG/ML VIAL ONE (19:43)
[2021-09-08 19:54] LABS: #Basophils 0.1 thou/uL (0.0-0.2); #Eosinphils 0.2 thou/uL (0.0-0.7); #Lymphocytes 3.3 thou/uL (1.20-3.40); #Monocytes 0.7 thou/uL (0.11-0.59); #Neutrophils 6.4 thou/uL (1.40-6.50); %Basophils 0.9 % (0.0-1.0); %Eosinophils 2.1 % (0.0-10.0); %Lymphocytes 30.6 % (21.0-51.0); %Monocytes 6.4 % (0.0-10.0); Hemoglobin 12.5 g/dL (12.0-16.0); Mean Corpuscular Volume 90.8 fL (78.0-98.0); Mean Platelet Volume 9.4 fL (7.4-10.4); Platelet Count 248 thou/uL (130-400); RBC Distribution Width 14.1 % (11.5-14.5); Red Blood Cell (RBC) Count 4.18 mill/uL (4.20-5.40); White Blood Cell (WBC) Count 10.7 thou/uL (4.8-10.8)
[2021-09-08 20:56] LABS: Bacteria/HPF None Seen HPF (None Seen); Bilirubin Negative (Negative); Blood, Urine 2+ (Negative); Clarity Clear (Clear); Glucose, Urine (Dipstick) Normal (Negative); Ketone, Urine Negative (Negative); Leukocyte 75 Leu/uL (Negative); Nitrite Negative (Negative); Protein, Urine (Dipstick) Negative (Neg-Trace); RBC/HPF Greater than 50 HPF (0-3); Specific Gravity, Urine 1.033 (1.002-1.036); Squamous Epithelial 0-3 HPF (0-3); Urobilinogen 6 mg/dL (Less than 2)
[2021-09-08 21:16] LABS: Albumin 3.4 g/dL (3.4-4.8)
[2021-09-08 21:17] LABS: Chloride 106 mmol/L (98-107); Potassium 3.9 mmol/L (3.5-5.1); Sodium 143 mmol/L (136-145)
[2021-09-08 21:18] LABS: Calcium 9.2 mg/dL (7.8-10.44); Glucose 102 mg/dL (80-115)
[2021-09-08 21:19] LABS: Globulin 3.9 g/dL (2.4-3.5); Protein, Total 7.3 g/dL (5.8-8.1)
[2021-09-08 21:20] LABS: Anion Gap 13 mmol/L (10-20); Bilirubin, Total 0.2 mg/dL (0.2-1.2); Carbon Dioxide 28 mmol/L (23-31)
[2021-09-08 21:21] LABS: Alkaline Phosphatase 63 U/L (40-110)
[2021-09-08 21:22] LABS: Calc. Creatinine Clearance 0 mL/min (70-130)
[2021-09-08 21:23] LABS: BUN (Urea Nitrogen) 15 mg/dL (9.8-20.1)
[2021-09-08 21:24] LABS: ALT (SGPT) 10 U/L (8-55); AST (SGOT) 17 U/L (5-34)
[2021-09-09] MEDS ORDERED: Ondansetron PF 4 MG/2 ML Vial IVP PRN (00:26)
[2021-09-09] MEDS ORDERED: Lorazepam 2 MG/ML VIAL SLOW IVP PRN (00:27)
[2021-09-09] MEDS ORDERED: cefTRIAXone\\ROCEPHIN 1 GM VIAL ONE (01:33)
[2021-09-09] MEDS: levETIRAcetam in NS 1,500 MG in Premix Bag 1 BAG IVPB SCH ×2 (01:45→14:41)
[2021-09-09] MEDS: cefTRIAXone\\ROCEPHIN 1 GM in Sodium Chloride 0.9% 100 ML IVPB SCH (02:02)
[2021-09-09 02:10] LABS: SARS-CoV-2 NAA Rapid Test Not Detected (NotDetected)
[2021-09-09] MEDS ORDERED: Acetaminophen 325 MG/10.15 ML UDCUP ONE (03:48)
[2021-09-09] MEDS: Acetaminophen 325 MG TAB PO PRN ×2 (03:52→22:09)
[2021-09-09 05:35] VITALS: BMI 37.5
[2021-09-09 06:26] LABS: #Eosinphils 0.1 thou/uL (0.0-0.7); #Lymphocytes 1.4 thou/uL (1.20-3.40); #Monocytes 0.7 thou/uL (0.11-0.59); #Neutrophils 7.9 thou/uL (1.40-6.50); %Basophils 0.5 % (0.0-1.0); %Eosinophils 1.1 % (0.0-10.0); %Lymphocytes 13.4 % (21.0-51.0); %Monocytes 7.2 % (0.0-10.0); %Neutrophils 77.9 % (42.0-75.0); Hemoglobin 10.6 g/dL (12.0-16.0); Mean Corpuscular HGB CONC 31.8 g/dL (32.0-36.0); Mean Corpuscular Hemoglobin 28.9 pg (27.0-31.0); Mean Corpuscular Volume 90.8 fL (78.0-98.0); Mean Platelet Volume 8.2 fL (7.4-10.4); Platelet Count 231 thou/uL (130-400); RBC Distribution Width 13.8 % (11.5-14.5); Red Blood Cell (RBC) Count 3.67 mill/uL (4.20-5.40); White Blood Cell (WBC) Count 10.2 thou/uL (4.8-10.8)
[2021-09-09 06:47] LABS: Anion Gap 11 mmol/L (10-20); BUN (Urea Nitrogen) 11 mg/dL (9.8-20.1); Calc. Creatinine Clearance 109 mL/min (70-130); Calcium 9.2 mg/dL (7.8-10.44); Carbon Dioxide 28 mmol/L (23-31); Chloride 105 mmol/L (98-107); Glucose 104 mg/dL (80-115); Potassium 4.8 mmol/L (3.5-5.1); Sodium 139 mmol/L (136-145)
[2021-09-09] MEDS ORDERED: Aspirin 325 MG TAB ONE (09:25)
[2021-09-09] MEDS ORDERED: Enoxaparin Sodium 40 MG/0.4 ML SYRINGE ONE (09:25)
[2021-09-09] MEDS: Aspirin 325 mg Enteric Coated Tablet PO SCH (09:32)
[2021-09-09] MEDS: Enoxaparin Sodium 40 MG/0.4 ML SYRINGE SC SCH (09:32)
[2021-09-10] MEDS: cefTRIAXone\\ROCEPHIN 1 GM in Sodium Chloride 0.9% 100 ML IVPB SCH (00:51)
[2021-09-10] MEDS: levETIRAcetam in NS 1,500 MG in Premix Bag 1 BAG IVPB SCH ×2 (02:08→14:42)
[2021-09-10 06:42] LABS: #Basophils 0.1 thou/uL (0.0-0.2); #Eosinphils 0.2 thou/uL (0.0-0.7); #Monocytes 0.9 thou/uL (0.11-0.59); #Neutrophils 6.7 thou/uL (1.40-6.50); %Basophils 0.6 % (0.0-1.0); %Eosinophils 1.6 % (0.0-10.0); %Lymphocytes 20.3 % (21.0-51.0); %Monocytes 9.2 % (0.0-10.0); %Neutrophils 68.4 % (42.0-75.0); Hemoglobin 11.3 g/dL (12.0-16.0); Mean Corpuscular HGB CONC 32.3 g/dL (32.0-36.0); Mean Corpuscular Hemoglobin 29.3 pg (27.0-31.0); Mean Corpuscular Volume 90.7 fL (78.0-98.0); Mean Platelet Volume 8.4 fL (7.4-10.4); Platelet Count 223 thou/uL (130-400); RBC Distribution Width 13.6 % (11.5-14.5); Red Blood Cell (RBC) Count 3.86 mill/uL (4.20-5.40); White Blood Cell (WBC) Count 9.8 thou/uL (4.8-10.8)
[2021-09-10 07:08] LABS: Anion Gap 13 mmol/L (10-20); BUN (Urea Nitrogen) 7 mg/dL (9.8-20.1); Calc. Creatinine Clearance 128 mL/min (70-130); Calcium 9.3 mg/dL (7.8-10.44); Carbon Dioxide 26 mmol/L (23-31); Chloride 103 mmol/L (98-107); Glucose 98 mg/dL (80-115); Sodium 138 mmol/L (136-145)
[2021-09-10] MEDS: Aspirin 325 mg Enteric Coated Tablet PO SCH (08:54)
[2021-09-10] MEDS: Enoxaparin Sodium 40 MG/0.4 ML SYRINGE SC SCH (08:54)
[2021-09-10 16:18] VITALS: BP 128/82; TEMP 99
== END 2021-09-10 16:50 | disposition home health service (06) | DRG 101 ==
LOC: ERS 19:11 → ERHOLD 09-09 00:02 → OBSVTOIN 09-09 15:17 → NEURO 09-09 19:27
PROVIDERS: ADMIT Internal Medicine; ATTEND Family Medicine
DX: G40.909 Epilepsy, unspecified, not intractable, without status epilepticus (principal); Z23 Encounter for immunization; Z20.822 Contact with and (suspected) exposure to COVID-19; N39.0 Urinary tract infection, site not specified; I69.351 Hemiplegia and hemiparesis following cerebral infarction affecting right dominant side; I10 Essential (primary) hypertension; E78.5 Hyperlipidemia, unspecified; F31.9 Bipolar disorder, unspecified; F20.9 Schizophrenia, unspecified; D32.0 Benign neoplasm of cerebral meninges; Z90.49 Acquired absence of other specified parts of digestive tract; Z98.49 Cataract extraction status, unspecified eye; Z98.51 Tubal ligation status; Z79.899 Other long term (current) drug therapy
CPT/HCPCS: 36415; 70450; 70551; 80048; 80053; 80177; 81003; 81015; 85025; 87086; 90471; 90732; 93005; 96372; 96374; 96375; 96376; G0009; G0378; J0696; J1650; J1953; J2060; J3490; U0002